=== PATIENT | male | born 1950 | race Caucasian/White ===

== ENCOUNTER 2016-11-12 12:00 | Inpatient (IN) | payer MEDICARE, OTHER ==
[~2016-11-12] VITALS: Ht 182.9 cm; Wt 70.3 kg
[~2016-11-12 12:00] MED LIST: ALBU2.5V13 HHN; ALLO100T PO; CALC500T3 PO; DIAZ10TA PO; HYDR-548 PO; IPRA0.2S9 HHN; MULT-24 PO; SULF1TAB48 PO; TAMS-12 PO
[2016-11-12] MEDS ORDERED: Magnesium 1GM/D5W 100ML PREMIX 200 ML IV ONE ×2 (12:10→12:15)
[2016-11-12] MEDS ORDERED: methylPREDNISolone SOD SUCC 125 MG/2ML VIAL ONE (12:15)
[2016-11-12] MEDS ORDERED: IV SET PRIMARY PUMP SET 1 EA INFUS.SET MC ONE ×2 (12:15→15:55)
--- NOTE | 2016-11-12 12:15 | NUR ---
pt BIB SELF, CC: CHEST PAIN NON RADIATING QUALITY SINCE THIS MORNING WITH COUGH AND SOB. PT AAOX3. SATING AT 92% RA, NOTED COPD HISTORY. VSS. AT FOR EVAL. SAFETY AND COMFORT MEASURES PROVIDED. WILL MONITOR.
[2016-11-12 12:17] LABS: BASOPHILS # (AUTO) 0.1 /CMM (0.0-0.2); BASOPHILS % (AUTO) 1.2 % (0.0-2.0); EOSINOPHILS # (AUTO) 0.1 /CMM (0.0-0.7); EOSINOPHILS % (AUTO) 0.7 % (0.0-6.0); HEMATOCRIT 48 % (39-51); LYMPHOCYTES # (AUTO) 3.1 /CMM (0.8-4.8); LYMPHOCYTES % (AUTO) 27.9 % (20.0-44.0); MEAN CORPUSCULAR HEMOGLOBIN 29 PG (26.0-33.0); MEAN CORPUSCULAR HGB CONC 34 g/dl (31.0-36.0); MEAN CORPUSCULAR VOLUME 87 fL (80-96); MONOCYTES % (AUTO) 9.2 % (2.0-12.0); NEUTROPHILS # (AUTO) 6.9 /CMM (1.8-8.9); PLATELET COUNT (AUTO) 178 /CMM (150-450); RDW COEFFICIENT OF VARIATION 13.4 (11.5-15.0); RED BLOOD CELL COUNT(AUTO) 5.49 MIL/uL (4.5-6.0); WHITE BLOOD COUNT (AUTO) 11.2 K/uL (4.3-11.0)
[2016-11-12] MEDS ORDERED: IPRATROPIUM NEB FS 0.5 MG/2.5 ML AMPUL.NEB ONE (12:22)
[2016-11-12] MEDS ORDERED: ALBUTEROL FS 2.5 MG/3 ML VIAL.NEB ONE (12:22)
--- NOTE | 2016-11-12 12:22 | NUR ---
COAL SHOVELER AT BEDSIDE
[2016-11-12 12:28] LABS: CALCIUM, SERUM 9.2 mg/dL (8.5-10.1); CARBON DIOXIDE 31 mmol/L (21-32); CHLORIDE 104 mmol/L (98-107); GLUCOSE 102 mg/dL (74-106); POTASSIUM 3.9 mmol/L (3.5-5.1); SODIUM SERUM 142 mmol/L (136-145); UREA NITROGEN, BLOOD 27 mg/dL (7-18)
[2016-11-12] MEDS ORDERED: methylPREDNISolone SOD SUCC 125 MG/2ML VIAL IV ONE (12:30)
[2016-11-12] MEDS ORDERED: IPRATROPIUM NEB FS 0.5 MG/2.5 ML AMPUL.NEB NEB ONE (12:30)
[2016-11-12] MEDS ORDERED: ALBUTEROL FS 2.5 MG/3 ML VIAL.NEB NEB ONE (12:30)
[2016-11-12 12:31] LABS: INR 0.99 (0.87-1.13); PROTHROMBIN TIME 10.3 SECS (9.5-12.7)
[2016-11-12 12:35] LABS: TROPONIN I < 0.017 ng/mL (0.00-0.056)
[2016-11-12 12:40] LABS: ALANINE AMINOTRANSFERASE 13 U/L (12-78); ALBUMIN 4.4 g/dL (3.4-5.0); ALKALINE PHOSPHATASE 82 U/L (46-116); ASPARTATE AMINOTRANSFERASE 17 U/L (15-37); B-TYPE NATRIURETIC PEPTIDE 74 PG/ML (0-125); BILIRUBIN,DIRECT 0.1 mg/dL (0.0-0.2); BILIRUBIN,TOTAL 0.7 mg/dL (0.2-1.0); TOTAL PROTEIN, SERUM 7.6 g/dL (6.4-8.2)
--- NOTE | 2016-11-12 12:41 | NUR ---
PAGED LEAD CARPENTER FOR [facility] DR LEAL
[2016-11-12] MEDS ORDERED: TIOT18CA3 IH (12:42)
--- NOTE | 2016-11-12 12:48 | NUR ---
SPOKE WITH NURSING MACHINE BUFFER FOR TELE BED
--- NOTE | 2016-11-12 13:41 | NUR ---
PT ASSIGNED TELE 307-2
--- NOTE | 2016-11-12 13:51 | NUR ---
REPORT GIVEN TO TRI HERNANDEZ FOR TELE ROOM 307-2
--- NOTE | 2016-11-12 14:25 | NUR ---
RN ADMITTING NOTES PATIENT ARRIVED TO UNIT VIA A GURNEY AND REGULATORY ANALYST. PATIENT TELE BOX APPLIED. PATIENT IS SINUS RHYTHM ON THE MONITOR. DR LEAL IS THE ADMITTING MD, WILL FOLLOW UP FOR ORDERS. CHEST PAIN 5/10 TOLERABLE, PER PATIENT. FAMILY MEMBERS AND FRIENDS ARE AT BEDSIDE. IV SITE INTACT AND PATENT. BELONGING LIST CONFIRMED AND SIGNED, PLACED IN THE CHART. WILL CONTINUE TO ASSESS AND MONITOR THROUGH OUT MY SHIFT.
[2016-11-12] MEDS ORDERED: hydrALAZINE HCL 25 MG TABLET PO PRN (14:30)
[2016-11-12] MEDS ORDERED: MAGNESIUM HYDROXIDE 30 ML UDC PO PRN (14:30)
[2016-11-12] MEDS ORDERED: Z GUARD REMEDY 2 OZ OINT TP PRN (14:30)
[2016-11-12] MEDS ORDERED: ONDANSETRON HCL/PF 4 MG/2 ML VIAL IVP PRN (14:30)
[2016-11-12] MEDS ORDERED: MAG HYDROX/AL HYDROX/SIMETH 30 ML UDC PO PRN (14:30)
--- NOTE | 2016-11-12 15:00 | NUR ---
DR LEAL AT BEDSIDE
[2016-11-12] MEDS ORDERED: SECONDARY IV SET 1 EA INFUS.SET MC ONE (15:55)
[2016-11-12] MEDS ORDERED: SET RED CAP 1 EA INFUS.SET MC ONE (15:55)
[2016-11-12 16:00] VITALS: BP 117/74
[2016-11-12] MEDS: IV NS 0.9% 1,000 ML IV PRN (16:02)
[2016-11-12] MEDS: methylPREDNISolone SOD SUCC 125 MG/2ML VIAL IV SCH (16:02)
[2016-11-12] MEDS: LEVOFLOXACIN 500 MG /D5W 100ML 500 MG in PREMIX 1 EA IV SCH (16:54)
[2016-11-12] MEDS: HYDROCODONE/APAP 5/325MG 1 EACH TABLET PO PRN (18:26)
--- NOTE | 2016-11-12 18:30 | NUR ---
PATIENT'S PAIN LEVEL 7/10, NORCO ADMINISTERED. BLOOD PRESSURE 128/68
--- NOTE | 2016-11-12 18:46 | NUR ---
RN CLOSING NOTES PATIENT IS ALERT AND ORIENTED TO NAME, PLACE AND TIME. BED IN LOW POSITION, LOCKED AND 2 SIDE RAILS ARE UP. NORCO GAVE 15 MIN AGO TO ALLEVIATE PAIN. SINUS RHYTHM ON THE MONITOR. NS IV FLUID AT 75 ML/HR CURRENTLY RUNNING. WILL ENDORSE TO BLOCKING MACHINE OPERATOR SECOND NURSE.
--- NOTE | 2016-11-12 19:30 | NUR ---
tele/rn opening notes Received patient in bed awake, alertx3. endorsement given by am rn. monitorning for any report of pain/chest. last norco given [id number], on atb levaquim. iv on right ac. tele monitoring reading at SR.requesting for sleeping pill . will continue to monitor.
[2016-11-12 19:49] VITALS: BP 107/64
[2016-11-12 19:52] VITALS: BP 107/64
--- NOTE | 2016-11-12 20:16 | NUR ---
tele/rn notes pain reported by patient at 6/10 on left upper chest, last norco taken before 1900. will give break through pain of tylenol at this time .
[2016-11-12] MEDS: ACETAMINOPHEN 325 MG TABLET PO PRN (20:23)
--- NOTE | 2016-11-12 20:48 | NUR ---
tele/rn notes patient reported of 5/10 pain lowered pain and stated improvement.
[2016-11-12] MEDS: ENOXAPARIN SODIUM 40 MG/0.4 ML DISP.SYRIN SQ SCH (20:52)
[2016-11-12] MEDS: ZOLPIDEM TARTRATE 5 MG TABLET PO PRN (21:29)
[2016-11-13] VITALS (7 sets, daily range): BP systolic 122–140; BP diastolic 70–87
[2016-11-13] MEDS: HYDROCODONE/APAP 5/325MG 1 EACH TABLET PO PRN ×4 (02:27→18:29)
--- NOTE | 2016-11-13 02:31 | NUR ---
ms/rn notes patient reported pain on mid chest bony prominence, heat pack provided to help alleviate pain and norco 5-325 mg po tab given to patient, tolerate medication. will continue to monitor for pain effectiveness.
--- NOTE | 2016-11-13 03:38 | NUR ---
ms/rn notes patient able to sleep ,no s/s of discomfort.
--- NOTE | 2016-11-13 06:08 | NUR ---
tele/rn closing notes patient able to sleep during the night. cooperative to care. alertx3. stated "feel better" being monitored for any s/s of discomfort. tele reading at sinus rhythm 70's. right iv ac gauge 20 checked for patency. rt made aware for breathing tx ordered. will endorse to am luis angel paige.
--- NOTE | 2016-11-13 07:05 | NUR ---
ENGINE MAINTENANCE MECHANIC NOTES PATIENT IN BED, ALERT AND ORIENTED, STATED PAIN IS AT A TOLERABLE LEVEL AT THIS TIME, NO S/SX OF ACUTE DISTRESS AT THIS TIME, IVF INFUSING, ON TELE WITH SR 60S, NEEDS ATTENDED AND MET, SAFETY MEASURES IN PLACED, CALL LIGHT WITHIN REACH, WILL CONTINUE TO MONITOR.
[2016-11-13 07:10] LABS: EOSINOPHILS % (AUTO) 0.2 % (0.0-6.0); HEMATOCRIT 42 % (39-51); HEMOGLOBIN 14.2 g/dL (13.5-17.5); LYMPHOCYTES # (AUTO) 1.6 /CMM (0.8-4.8); LYMPHOCYTES % (AUTO) 16.2 % (20.0-44.0); MEAN CORPUSCULAR HEMOGLOBIN 29 PG (26.0-33.0); MEAN CORPUSCULAR HGB CONC 34 g/dl (31.0-36.0); MEAN CORPUSCULAR VOLUME 87 fL (80-96); MONOCYTES # (AUTO) 0.8 /CMM (0.1-1.30); MONOCYTES % (AUTO) 7.6 % (2.0-12.0); NEUTROPHILS # (AUTO) 7.6 /CMM (1.8-8.9); PLATELET COUNT (AUTO) 149 /CMM (150-450); RED BLOOD CELL COUNT(AUTO) 4.85 MIL/uL (4.5-6.0); WHITE BLOOD COUNT (AUTO) 10.1 K/uL (4.3-11.0)
[2016-11-13 07:29] LABS: CALCIUM, SERUM 8.7 mg/dL (8.5-10.1); CREATININE 1.1 mg/dL (0.6-1.3); MAGNESIUM 2.2 mg/dL (1.8-2.4); PHOSPHORUS 4.4 mg/dL (2.5-4.9); POTASSIUM 4.8 mmol/L (3.5-5.1)
[2016-11-13] MEDS: IPRATROPIUM NEB FS 0.5 MG/2.5 ML AMPUL.NEB HHN SCH ×4 (07:35→18:54)
[2016-11-13] MEDS: ALBUTEROL FS 2.5 MG/0.5 ML VIAL.NEB HHN PRN (08:11)
[2016-11-13] MEDS: methylPREDNISolone SOD SUCC 125 MG/2ML VIAL IV SCH ×3 (08:35→17:31)
[2016-11-13] MEDS: MULTIVITAMINS,THERAPEUTIC 1 UDTAB TABLET PO SCH (08:35)
[2016-11-13] MEDS: PANTOPRAZOLE 40 MG TABLET.DR PO SCH (08:35)
[2016-11-13] MEDS: TAMSULOSIN 0.4 MG CAP.SR.24H PO SCH (08:35)
[2016-11-13] MEDS ORDERED: TIOTROPIUM BROMIDE 6 CAP/BOX CAP.W.DEV IH SCH (09:00)
--- NOTE | 2016-11-13 10:46 | NUR ---
MARY MICHELLE NOTES INFORMED DR. CRAWFORD PATIENT IS STILL COMPLAINING OF THROBBING PAIN 11/01 IN HIS MIDCHEST, NORCO WAS GIVEN AT 0841, DR. CRAWFORD GAVE AN ORDER FOR AN MD CONSULT WITH DR. DANIELS FOR PAIN MANAGEMENT. ORDER NOTED AND CARRIED OUT. Addendum: 11/13/16 at 1522 by VIDHI POTTER RN SORAYA MAYA MS
[2016-11-13] MEDS: LEVOFLOXACIN 500 MG /D5W 100ML 500 MG in PREMIX 1 EA IV SCH (15:07)
--- NOTE | 2016-11-13 15:21 | NUR ---
HOPPER FEEDER NOTES PATIENT REFUSED DVT PUMP, RE-EDUCATED, STILL REFUSED.
--- NOTE | 2016-11-13 18:33 | NUR ---
OIL OPERATOR NOTES PATIENT IN BED, ALERT AND ORIENTED, RECEIVED NORCO FOR MID CHEST PAIN, RECEIVED ALL DUE MEDICATIONS, ALL NEEDS ATTENDED AND MET, SAFETY MEASURES OBSERVED, PIV ON LEFT HAND PATENT AND INTACT WITH IVF ONGOING AT THIS TIME, CALL LIGHT WITHIN REACH, WILL ENDORSE TO SENIOR SUPPLY CHAIN ANALYST FOR SUDHEER.
--- NOTE | 2016-11-13 19:30 | NUR ---
TELE/RN OPENING NOTES PT AWAKE, FAMILY AT BEDSIDE. CURRENTLY RECEIVING BREATHING TX. A/OX3. DENIES PAIN AND SOB AT THIS TIME. NO S/S OF DISTRESS NOTED. ON TELE MONITOR READING SINUS RHYTHM WITH HEART RATE AT 75. IV TO LEFT HAND RUNNING IVF ORDERED. BED IN LOW/LOCKED POSITION WITH CALL LIGHT IN REACH. BED RAILS UPX2. WILL CONTINUE TO MONITOR
[2016-11-13] MEDS: ENOXAPARIN SODIUM 40 MG/0.4 ML DISP.SYRIN SQ SCH (20:47)
[2016-11-13] MEDS: IV NS 0.9% 1,000 ML IV PRN (21:56)
[2016-11-13] MEDS: ZOLPIDEM TARTRATE 5 MG TABLET PO PRN (21:56)
[2016-11-14] VITALS (7 sets, daily range): BP systolic 126–137; BP diastolic 72–83
[2016-11-14] MEDS: IPRATROPIUM NEB FS 0.5 MG/2.5 ML AMPUL.NEB HHN SCH ×4 (00:47→19:35)
[2016-11-14] MEDS: HYDROCODONE/APAP 5/325MG 1 EACH TABLET PO PRN ×3 (01:12→18:16)
--- NOTE | 2016-11-14 01:12 | NUR ---
TELE/RN NOTES PT COMPLAINING OF THROBBING CHEST PAIN 12/02. ADMINISTERED PRN NORCO 5-325 AND PROVIDED HEATING PAD. WILL CONTINUE TO MONITOR
--- NOTE | 2016-11-14 06:43 | NUR ---
TELE/RN CLOSING NOTES PT AWAKE, ON 2LPM O2 VIA NC. DENIES SOB OR PAIN AT THIS TIME. BREATHING EVEN AND UNLABORED. ON TELE MONITOR, SINUS RHYTHM WITH HEART RATE AT 63. IV TO LEFT HAND RUNNING NS AT 75ML/HR ORDERED. PT SLEPT INTERMITTENTLY DURING THE NIGHT. HAS PAIN MANAGEMENT CONSULT WITH DR. DANIELS. BED IN LOW/LOCKED POSITION, CALL LIGHT IN REACH. ALL NEEDS MET AND ATTENDED. MADE PT COMFORTABLE THROUGHOUT SHIFT. WILL ENDORSE TO AM SHIFT SUDHEER.
--- NOTE | 2016-11-14 07:05 | NUR ---
FORGING PRESS SETTER UP NOTE: RECEIVED PATIENT WHILE RESTING IN BED, A/OX 4. BREATHING EVEN AND UNLABORED ON 2L O2 VIA NC. NO SOB, NO DISTRESS/DISCOMFORT AT THE MOMENT. PATIENT COMFORTABLE, ALL NEEDS ATTENDED TO, SAFETY MEASURES IN PLACE, WILL CONTINUE TO MONITOR.
[2016-11-14] MEDS: MULTIVITAMINS,THERAPEUTIC 1 UDTAB TABLET PO SCH (08:30)
[2016-11-14] MEDS: TAMSULOSIN 0.4 MG CAP.SR.24H PO SCH (08:30)
[2016-11-14] MEDS: PANTOPRAZOLE 40 MG TABLET.DR PO SCH (08:31)
[2016-11-14] MEDS: methylPREDNISolone SOD SUCC 125 MG/2ML VIAL IV SCH ×3 (08:33→16:15)
--- NOTE | 2016-11-14 08:35 | NUR ---
ASSISTANT BASEBALL COACH NOTE: PATIENT C/O CHEST PAIN, 12/02. PATIENT GIVEN NORCO ORALLY. PATIENT ON OXYGEN, NO SOB, WILL CONTINUE TO MONITOR.
[2016-11-14] MEDS ORDERED: LIDOCAINE 2% JEL 5 ML TUBE MC ONE (09:30)
--- NOTE | 2016-11-14 10:30 | NUR ---
MS RN NOTE: PATIENT CLEARED FROM TELE MONITORING PER DR. CRAWFORD. TELE MONITOR REMOVED AND RETURNED TO STATION. WILL CONTINUE TO MONITOR PATIENT.
--- NOTE | 2016-11-14 12:00 | NUR ---
MS RN NOTE: PATIENT RESTING IN BED, NO SIGNIFICANT CHANGES IN CONDITION, WILL CONTINUE TO MONITOR.
[2016-11-14] MEDS: IV NS 0.9% 1,000 ML IV PRN (12:30)
[2016-11-14] MEDS: LEVOFLOXACIN 500 MG /D5W 100ML 500 MG in PREMIX 1 EA IV SCH (14:06)
[2016-11-14] MEDS: ACETAMINOPHEN 325 MG TABLET PO PRN (16:14)
--- NOTE | 2016-11-14 16:14 | NUR ---
MS RN NOTE: PATIENT C/O MILD HEADACHE, REQUESTING TYLENOL. MEDICATION ADMINISTERED ORALLY. WILL CONTINUE TO MONITOR.
--- NOTE | 2016-11-14 18:20 | NUR ---
MS RN NOTE: PATIENT C/O 6/10 PAIN ON CHEST, REQUESTING NORCO. MEDICATION ADMINISTERED ORALLY. PATIENT A/OX 4, BREATHING EVEN AND UNLABORED. NO SOB. ALL OTHER NEEDS ATTENDED TO, SAFETY MEASURES IN PLACE, WILL ENDORSE TO SALES PRODUCER FOR SUDHEER.
--- NOTE | 2016-11-14 19:30 | NUR ---
MS NEON SIGN ERECTOR INITIAL NOTES RECEIVED REPORT FROM AM NURSE VIVIENNE, CHECKED PT HE'S AWAKE AND ALERT FAROESE AND ARMENIAN SPEAKING HAVING BREATHING TREATMENT AT THIS TIME. DENIES ANY CHEST OR ANY DISCOMFORT. IVF STILL INFUSING ON HIS LEFT HAND PATENT AND INTACT. NO REDNESS NOTED. TOLD HIM ABOUT WHAT MEDICATION HE CAN HAVE TONIGHT AND PT AWARE. ENCOURAGE HIM TO USE THE CALL LIGHT SYSTEM IF HE NEEDS SOME HELPED OR ASSISTANCE. KEPT HIM COMFORTABLE AT ALL TIMES. PLACE CALL LIGHT AT REACH. WILL CONTINUE TO MONITOR.
[2016-11-14] MEDS: ALBUTEROL FS 2.5 MG/0.5 ML VIAL.NEB HHN PRN (19:35)
[2016-11-14] MEDS: ENOXAPARIN SODIUM 40 MG/0.4 ML DISP.SYRIN SQ SCH (21:16)
--- NOTE | 2016-11-15 | NUR ---
FELT FINISHER/NOTES PT SLEEPING COMFORTABLY IN BED WITHOUT ANY ACUTE DISTRESS NOTED. IVF STILL INFUSING ON HIS LEFT HAND, NO REDNESS NOTED. KEPT HIM WARM AND COMFORTABLE AT ALL TIMES PLACE CALL LIGHT AT REACH. WILL CONTINUE TO MONITOR.
[2016-11-15] MEDS: ALBUTEROL FS 2.5 MG/0.5 ML VIAL.NEB HHN PRN ×3 (01:25→14:10)
[2016-11-15] MEDS: IPRATROPIUM NEB FS 0.5 MG/2.5 ML AMPUL.NEB HHN SCH ×4 (01:25→19:32)
[2016-11-15] MEDS: IV NS 0.9% 1,000 ML IV PRN (05:20)
--- NOTE | 2016-11-15 06:33 | NUR ---
MS ORACLE BUSINESS INTELLIGENCE DEVELOPER CLOSING NOTES PT REMAINS RESTING WITH EYES CLOSED BUT AROUSES TO TOUCH . DENIES ANY PAIN OR ANY DISCOMFORT. STABLE MERLENE THE NIGHT AND SLEPT WELL. ALL DUE MEDS GIVEN AND ALL NEEDS MET. KEPT HIM WARM AND COMFORTABLE AT ALL TIMES. PLACE CALL LIGHT AT REACH. ENDORSE TO AM NURSE FOR CONTINUITY OF CARE.
[2016-11-15 07:03] LABS: BASOPHILS % (AUTO) 0.1 % (0.0-2.0); HEMATOCRIT 42 % (39-51); LYMPHOCYTES # (AUTO) 1.4 /CMM (0.8-4.8); LYMPHOCYTES % (AUTO) 15.3 % (20.0-44.0); MEAN CORPUSCULAR HEMOGLOBIN 30 PG (26.0-33.0); MEAN CORPUSCULAR HGB CONC 34 g/dl (31.0-36.0); MEAN CORPUSCULAR VOLUME 88 fL (80-96); MONOCYTES # (AUTO) 0.8 /CMM (0.1-1.30); MONOCYTES % (AUTO) 8.2 % (2.0-12.0); NEUTROPHILS # (AUTO) 7.3 /CMM (1.8-8.9); NEUTROPHILS % (AUTO) 76.4 % (43.0-81.0); PLATELET COUNT (AUTO) 131 /CMM (150-450); RDW COEFFICIENT OF VARIATION 14.1 (11.5-15.0); RED BLOOD CELL COUNT(AUTO) 4.74 MIL/uL (4.5-6.0); WHITE BLOOD COUNT (AUTO) 9.5 K/uL (4.3-11.0)
[2016-11-15 07:23] LABS: CALCIUM, SERUM 8.8 mg/dL (8.5-10.1); POTASSIUM 4.4 mmol/L (3.5-5.1)
[2016-11-15 07:27] LABS: PHOSPHORUS 3.4 mg/dL (2.5-4.9)
[2016-11-15 08:00] VITALS: BP 143/82
--- NOTE | 2016-11-15 08:00 | NUR ---
MS RN AM NOTES PT AWAKE, ON 2LPM O2 VIA NC. DENIES SOB OR PAIN AT THIS TIME. BREATHING EVEN AND UNLABORED. ON TELE MONITOR, SINUS RHYTHM WITH HEART RATE AT 60. IV TO LEFT HAND RUNNING NS AT 75ML/HR ORDERED. WITH C/O LEFT CHEST PAIN.NORCO 5/325 TAB PO GIVEN FOR PAIN MANAGEMENT.BED IN LOW/LOCKED POSITION, CALL LIGHT IN REACH.NEEDS MET AND ATTENDED.
[2016-11-15 08:11] VITALS: BP 143/82
[2016-11-15] MEDS: HYDROCODONE/APAP 5/325MG 1 EACH TABLET PO PRN (09:23)
[2016-11-15] MEDS: methylPREDNISolone SOD SUCC 125 MG/2ML VIAL IV SCH ×3 (09:24→17:56)
[2016-11-15] MEDS: PANTOPRAZOLE 40 MG TABLET.DR PO SCH (09:24)
[2016-11-15] MEDS: MULTIVITAMINS,THERAPEUTIC 1 UDTAB TABLET PO SCH (09:24)
[2016-11-15] MEDS: TAMSULOSIN 0.4 MG CAP.SR.24H PO SCH (09:24)
[2016-11-15 16:00] VITALS: BP 151/82
[2016-11-15 16:53] VITALS: BP 151/82
[2016-11-15] MEDS: LEVOFLOXACIN (500MG) 500 MG TABLET PO SCH (17:49)
--- NOTE | 2016-11-15 18:38 | NUR ---
PT RESTING IN BED DENYING ANY PAIN OR DISTRESS.OBTAINED ALL MEDICAL RECORDS DOCUMENTS FROM [facility] REGARDING PT'S THORACENTESIS PROCEDURE AND PLACED IN THE CHART.
--- NOTE | 2016-11-15 19:25 | NUR ---
MS STEPHANIE INITIAL NOTES SEEN PT IN BED AWAKE AND ALERT WATCHING TV WHILE TALKING TO SOMEBODY ON HIS CELLPHONE. DENIES ANY PAIN OR ANY DISCOMFORT. KEPT HIM COMFORTABLE AT ALL TIMES. WILL CONTINUE TO MONITOR. PLACE CALL LIGHT AT REACH.
[2016-11-15] MEDS: ALBUTEROL FS 2.5 MG/0.5 ML VIAL.NEB HHN SCH (19:32)
[2016-11-15 20:00] VITALS: BP 128/84
[2016-11-15] MEDS: ENOXAPARIN SODIUM 40 MG/0.4 ML DISP.SYRIN SQ SCH (21:31)
[2016-11-15] MEDS: ZOLPIDEM TARTRATE 5 MG TABLET PO PRN (22:30)
--- NOTE | 2016-11-15 22:31 | NUR ---
SUPERVISOR ROSE GRADING NOTES AMBIEN GIVEN PER PT REQUESTED. POSSIBLE SIDE EFFECT PT AWARE AND UNDERSTOOD WELL. KEPT HIM WARM AND COMFORTABLE AT ALL TIMES. WILL CONTINUE TO MONITOR. PLACE CALL LIGHT AT REACH.
--- NOTE | 2016-11-16 | NUR ---
SENIOR SQL DATABASE DEVELOPER/NOTES PT SLEEPING COMFORTABLY IN BED AFTER SLEEP MEDICATION TAKEN. BREATHING EVEN AND UN-LABORED, NOT IN ANY ACUTE DISTRESS NOTED. KEPT HIM WARM AND COMFORTABLE AT ALL TIMES. WILL CONTINUE TO MONITOR.
[2016-11-16] MEDS: ALBUTEROL FS 2.5 MG/0.5 ML VIAL.NEB HHN SCH ×4 (01:20→20:00)
[2016-11-16] MEDS: IPRATROPIUM NEB FS 0.5 MG/2.5 ML AMPUL.NEB HHN SCH ×4 (01:20→20:00)
[2016-11-16 06:43] LABS: BASOPHILS % (AUTO) 0.1 % (0.0-2.0); HEMATOCRIT 42 % (39-51); LYMPHOCYTES # (AUTO) 1.3 /CMM (0.8-4.8); LYMPHOCYTES % (AUTO) 14.3 % (20.0-44.0); MEAN CORPUSCULAR HEMOGLOBIN 30 PG (26.0-33.0); MEAN CORPUSCULAR HGB CONC 34 g/dl (31.0-36.0); MEAN CORPUSCULAR VOLUME 88 fL (80-96); MONOCYTES # (AUTO) 0.9 /CMM (0.1-1.30); NEUTROPHILS # (AUTO) 6.7 /CMM (1.8-8.9); NEUTROPHILS % (AUTO) 75.6 % (43.0-81.0); PLATELET COUNT (AUTO) 129 /CMM (150-450); RDW COEFFICIENT OF VARIATION 13.9 (11.5-15.0); RED BLOOD CELL COUNT(AUTO) 4.75 MIL/uL (4.5-6.0); WHITE BLOOD COUNT (AUTO) 8.8 K/uL (4.3-11.0)
[2016-11-16 06:55] LABS: CALCIUM, SERUM 8.8 mg/dL (8.5-10.1); PHOSPHORUS 3.6 mg/dL (2.5-4.9); POTASSIUM 4.2 mmol/L (3.5-5.1)
--- NOTE | 2016-11-16 07:02 | NUR ---
TECHNICAL MAINTENANCE TECHNICIAN/CLOSING NOTES PT AWAKE AND ALERT DENIES ANY PAIN OR ANY DISCOMFORT. STABLE MERLENE THE NIGHT AND SLEPT WELL, ALL NEEDS MET AND DUE MEDS GIVEN. KEPT HIM COMFORTABLE AT ALL TIMES. ENDORSE TO AM NURSE FOR CONTINUITY OF CARE. PLACE CALL LIGHT AT REACH.
--- NOTE | 2016-11-16 07:56 | NUR ---
MS RN OPENING NOTE PATIENT IS ALERT AND ORIENTED x4. STATES 5/10 PAIN ON LEFT ABDOMINAL SIDE, MEDICATION GIVEN, WILL REASSESS PAIN. NO SOB OR DISTRESS NOTED. CALL LIGHT WITHIN REACH. SAFETY MEASURES IMPLEMENTED. ABLE TO COMMUNICATE NEEDS. BRP. IV INTACT AND PATENT NO REDNESS OR SWELLING NOTED. WILL CONTINUE TO MONITOR
[2016-11-16 08:00] VITALS: BP 134/81
[2016-11-16] MEDS: MULTIVITAMINS,THERAPEUTIC 1 UDTAB TABLET PO SCH (08:18)
[2016-11-16] MEDS: methylPREDNISolone SOD SUCC 125 MG/2ML VIAL IV SCH ×3 (08:18→16:43)
[2016-11-16] MEDS: PANTOPRAZOLE 40 MG TABLET.DR PO SCH (08:18)
[2016-11-16] MEDS: HYDROCODONE/APAP 5/325MG 1 EACH TABLET PO PRN ×3 (08:18→20:34)
[2016-11-16] MEDS: TAMSULOSIN 0.4 MG CAP.SR.24H PO SCH (08:18)
[2016-11-16] MEDS: LEVOFLOXACIN (500MG) 500 MG TABLET PO SCH (15:16)
--- NOTE | 2016-11-16 18:44 | NUR ---
MS RN CLOSING NOTE PATIENT IS ALERT AND ORIENTED x4. NO PAIN AT THIS TIME. NO SOB OR DISTRESS NOTED. ALL DUE MEDICATIONS GIVEN. CALL LIGHT WITHIN REACH AT ALL TIMES. SAFETY MEASURES IMPLEMENTED. ABLE TO COMMUNICATE NEEDS. POSSIBLE DISCHARGE IN THE MORNING. WILL ENDORSE TO SLOT KEY PERSON NURSE
--- NOTE | 2016-11-16 19:15 | NUR ---
RN NOTES RECEIVED PT AWAKE, HOB ELEVATED, NO SOB, NOT IN DISTRESS, WITH O2 INHALATION VIA NC AND TOLERATED WELL. PT ALERT AND ORIENTED X3, VERBALIZING TOLERABLE PAIN ON HIS LEFT LATERAL BACK. IV ACCESS ON LEFT HAND INTACT, NO SIGNS OF INFILTRATE NOTED. KEPT COMFORTABLE AND ATTENDED. KEPT BED IN THE LOWEST POSITION, LOCKED, SIDE RAILS UP X2 WITH CALL LIGHT WITH IN REACH. WILL CONTINUE TO MONITOR PT.
[2016-11-16 20:00] VITALS: BP 131/72
[2016-11-16] MEDS: ENOXAPARIN SODIUM 40 MG/0.4 ML DISP.SYRIN SQ SCH (20:33)
--- NOTE | 2016-11-16 20:34 | NUR ---
RN NOTES PT COMPLAINS OF 6/10 PAIN ON HIS LEFT LATERAL BACK, NORCO 5/325 MG TAB GIVEN PO. WILL CONTINUE TO MONITOR PT.
[2016-11-16 22:00] VITALS: BP 131/72
[2016-11-16] MEDS: ZOLPIDEM TARTRATE 5 MG TABLET PO PRN (22:49)
--- NOTE | 2016-11-16 22:49 | NUR ---
RN NOTES PT HAS DIFFICULTY SLEEPING, REQUESTING FOR SLEEPING PILL. AMBIEN 5 MG TAB GIVEN PO. WILL CONTINUE TO MONITOR PT.
[2016-11-17] MEDS: IPRATROPIUM NEB FS 0.5 MG/2.5 ML AMPUL.NEB HHN SCH ×4 (01:16→19:27)
[2016-11-17] MEDS: ALBUTEROL FS 2.5 MG/0.5 ML VIAL.NEB HHN SCH ×4 (01:16→19:27)
--- NOTE | 2016-11-17 01:16 | NUR ---
RT PT REFUSED MEDS. PT WAS SLEEPING AT WANT TO CONTINUE RESTING. NO SOB OR RESP DISTRESS NOTED.
--- NOTE | 2016-11-17 07:15 | NUR ---
RN NOTES PT AWAKE , HOB, ELEVATED, NO SOB, NOT IN DISTRESS, ON O2 INHALATION AT 2LPM VIA NC TOLERATED WELL. VITAL SIGNS STABLE, AFEBRILE. NO COMPLAIN OF CHEST PAIN, EDIN EPISODE OF NAUSEA AND VOMITING WITH IN THE SHIFT. KEPT PAIN AT TOLERABLE LEVEL.ALL NEEDS ATTENDED. ENDORSED TO MORNING RN FOR CONTINUITY OF CARE.
--- NOTE | 2016-11-17 07:43 | NUR ---
MS RN OPENING NOTE PATIENT IS ALERT AND ORIENTED x4. PATIENT STATES PAIN IN LEFT LATERAL BACK, PAIN MEDICATION GIVEN. NO SOB OR DISTRESS NOTED. CALL LIGHT WITHIN REACH. SAFETY MEASURES IMPLEMENTED. IV INTACT AND PATENT NO REDNESS OR SWELLING. ABLE TO COMMUNICATE NEEDS. WILL CONTINUE TO MONITOR
[2016-11-17 08:00] VITALS: BP 150/93
[2016-11-17] MEDS: HYDROCODONE/APAP 5/325MG 1 EACH TABLET PO PRN ×3 (08:01→21:13)
[2016-11-17] MEDS: TAMSULOSIN 0.4 MG CAP.SR.24H PO SCH (08:01)
[2016-11-17] MEDS: MULTIVITAMINS,THERAPEUTIC 1 UDTAB TABLET PO SCH (08:01)
[2016-11-17] MEDS: PANTOPRAZOLE 40 MG TABLET.DR PO SCH (08:01)
[2016-11-17] MEDS: methylPREDNISolone SOD SUCC 125 MG/2ML VIAL IV SCH ×3 (08:01→16:19)
[2016-11-17] MEDS: LEVOFLOXACIN (500MG) 500 MG TABLET PO SCH (15:19)
[2016-11-17 16:00] VITALS: BP 114/78
--- NOTE | 2016-11-17 18:39 | NUR ---
MS RN CLOSING NOTE PATIENT IS ALERT AND ORIENTED X4. NO PAIN AT THIS TIME. NO SOB OR DISTRESS NOTED. ALL DUE MEDICATIONS GIVEN ORDERED. CALL LIGHT WITHIN REACH AT ALL TIMES. SAFETY MEASURES IMPLEMENTED. IV INTACT AND PATENT NO REDNESS OR SWELLING NOTED. ABLE TO COMMUNICATE NEEDS. WILL ENDORSE TO MANAGER LEARNING NURSE
--- NOTE | 2016-11-17 19:30 | NUR ---
MS RN OPENING NOTES: PATIENT IN BED, AOX4, ON O2 AT 2 LPM VIA NC, BREATHING EVEN AND UNLABORED, HOWEVER, SOME EXPIRATORY WHEEZING NOTED UPON AUSCULTATION. PATIENT HAS NO SOB, NOTED NO USE OF ACCESSORY MUSCLES WHILE BREATHING, DENIES DIFFICULTY BREATHING AT THIS TIME. PIV OVER LFA G 22 INTACT AND PATENT TO FLUSH. COMPLAINS OF LEFT SIDED CHEST PAIN, SCALED AT 6/10, DESCRIBED "PRESSING" AND WAS ATTRIBUTED TO HIS RECENT ACTIVITY OF FIXING HIS BED. VS TAKEN AT 129/77, HR: 898, O2 SAT: 98%. PROVIDED FOR COMFORT AND SAFETY. WILL CONT TO MONITOR.
[2016-11-17 20:00] VITALS: BP 119/71
--- NOTE | 2016-11-17 20:02 | NUR ---
RN NOTES: PATIENT PLACED TEMPORARILY ON TELE MONITOR: SINUS RHYTHM AT RATE OF 90S. PATIENT APPEARS CALM AND IN NO DISTRESS, STATES THAT CHEST PAIN IS SLIGHTLY BETTER BUT STILL PRESENT. NO DIAPHORESIS, SOB, CHANGE IN LOC, PALLOR/ FLUSHING NOTED AT THIS TIME. WILL CONT TO MONITOR.
[2016-11-17] MEDS ORDERED: NITROGLYCERIN 0.4 MG/TAB BOTTLE SL PRN (20:30)
--- NOTE | 2016-11-17 20:37 | NUR ---
RN NOTES: MADE AMRIT OSBORNE AWARE OF PATIENT'S CHEST PAIN. ORDERS MADE FOR STAT TROPONIN, EKG AND PRN NTG 0.4 MG PO. ORDERS NOTED AND CARRIED OUT. WILL CONT TO MONITOR.
--- NOTE | 2016-11-17 21:15 | NUR ---
RN NOTES: PATIENT COMPLAINED OF 6/10 PAIN OVER LEFT SIDE OF CHEST. ADMINISTERED NORCO 5-325 MG PO. WILL CONT TO MONITOR.
[2016-11-17] MEDS: ENOXAPARIN SODIUM 40 MG/0.4 ML DISP.SYRIN SQ SCH (21:17)
[2016-11-17 23:10] VITALS: BP 157/94
--- NOTE | 2016-11-17 23:12 | NUR ---
RN NOTES: PATIENT COMPLAINED OF LEFT SIDED CHEST PAIN AT 6/10. PATIENT APPEARS CALM AND IN NO DISTRESS. VS CHECKED. WILL ADMINISTER NTG 1 TAB SL, AND WILL CONT TO MONITOR.
[2016-11-18] MEDS: ALBUTEROL FS 2.5 MG/0.5 ML VIAL.NEB HHN SCH ×3 (01:08→13:30)
[2016-11-18] MEDS: IPRATROPIUM NEB FS 0.5 MG/2.5 ML AMPUL.NEB HHN SCH ×3 (01:08→13:30)
[2016-11-18 05:30] VITALS: BP 133/80
--- NOTE | 2016-11-18 06:00 | NUR ---
RN NOTES: PATIENT REFUSED TO HAVE MORNING CARE DONE OF NOW, SAYING HE WANTS TO SLEEP.
--- NOTE | 2016-11-18 06:39 | NUR ---
MS RN CLOSING NOTES: PATIENT IN BED, AO4, ON O2 AT 2 LPM VIA NC, BREATHING EVEN AND UNLABORED. PATIENT STILL COMPLAINING OF LEFT SIDED CHEST PAIN, BUT NOT ABLE TO ACCURATELY SCALE IT AT THIS TIME, SAYING "IT HAS GONE DOWN." PATIENT NOTED TO HAVE PERIODS OF INTERMITTENT SLEEP THROUGH NIGHT. FREQUENTLY ASSESSED FOR PAIN AND ADMINISTERED PRN PAIN MEDICATIONS. PROVIDED FOR COMFORT AND SAFETY. WILL ENDORSE TO AM RN FOR SUDHEER.
[2016-11-18 06:54] LABS: BASOPHILS % (AUTO) 0.2 % (0.0-2.0); HEMATOCRIT 42 % (39-51); LYMPHOCYTES % (AUTO) 12.2 % (20.0-44.0); MEAN CORPUSCULAR HEMOGLOBIN 30 PG (26.0-33.0); MEAN CORPUSCULAR HGB CONC 34 g/dl (31.0-36.0); MEAN CORPUSCULAR VOLUME 88 fL (80-96); MONOCYTES # (AUTO) 0.6 /CMM (0.1-1.30); MONOCYTES % (AUTO) 7.5 % (2.0-12.0); NEUTROPHILS # (AUTO) 6.6 /CMM (1.8-8.9); NEUTROPHILS % (AUTO) 80.1 % (43.0-81.0); PLATELET COUNT (AUTO) 115 /CMM (150-450); RDW COEFFICIENT OF VARIATION 13.9 (11.5-15.0); RED BLOOD CELL COUNT(AUTO) 4.73 MIL/uL (4.5-6.0); WHITE BLOOD COUNT (AUTO) 8.3 K/uL (4.3-11.0)
[2016-11-18 06:56] LABS: CALCIUM, SERUM 8.6 mg/dL (8.5-10.1); MAGNESIUM 2.2 mg/dL (1.8-2.4); PHOSPHORUS 3.9 mg/dL (2.5-4.9); POTASSIUM 4.4 mmol/L (3.5-5.1)
[2016-11-18] MEDS: PANTOPRAZOLE 40 MG TABLET.DR PO SCH (07:09)
--- NOTE | 2016-11-18 07:30 | NUR ---
pt. refused dvt pumps,states he has had them in the past and they caused problems with his circulation.
[2016-11-18 08:00] VITALS: BP 151/81
[2016-11-18] MEDS: HYDROCODONE/APAP 5/325MG 1 EACH TABLET PO PRN (08:00)
[2016-11-18] MEDS ORDERED: PANT40TA2 PO (08:32)
[2016-11-18] MEDS ORDERED: PRED20TA GT (08:32)
[2016-11-18] MEDS ORDERED: LEVO500T15 PO (08:32)
[2016-11-18] MEDS ORDERED: PRED10TA PO (08:32)
[2016-11-18] MEDS ORDERED: Hydralazine Hcl PO (08:32)
[2016-11-18] MEDS ORDERED: PRED20TA PO (08:32)
[2016-11-18] MEDS ORDERED: PRED50TA PO (08:32)
[2016-11-18] MEDS: MULTIVITAMINS,THERAPEUTIC 1 UDTAB TABLET PO SCH (09:41)
[2016-11-18] MEDS: TAMSULOSIN 0.4 MG CAP.SR.24H PO SCH (09:41)
[2016-11-18] MEDS: methylPREDNISolone SOD SUCC 125 MG/2ML VIAL IV SCH ×2 (09:41→13:54)
--- NOTE | 2016-11-18 10:30 | NUR ---
pt. up in bathroom,shaving without o2 although he becomes sob at times.
--- NOTE | 2016-11-18 11:30 | NUR ---
o2 tank delivered to . to take home.
--- NOTE | 2016-11-18 14:30 | NUR ---
no change in status.
[2016-11-18] MEDS: LEVOFLOXACIN (500MG) 500 MG TABLET PO SCH (14:51)
--- NOTE | 2016-11-18 15:05 | NUR ---
pt.has friend here to pick him up. help lock out.all papers given to pt. rxs on dc sheet.explained thoroughly to pt.belonging sheet signed as well.taken to lobby via w/c accompanied by scaffolding helper and friend.
--- NOTE | 2016-11-18 15:30 | NUR ---
pt,s pharm. calling and asking questions about pt,s meds.reviewed dc list with pharmacist.
== END 2016-11-18 15:05 | disposition home or self-care (01) | DRG 189 ==
LOC: ER 12:02 → TELE 12:30 → MED 11-14 10:15
PROVIDERS: ADMIT Internal Medicine; ATTEND Internal Medicine
DX: J96.21 Acute and chronic respiratory failure with hypoxia (principal); J44.0 Chronic obstructive pulmonary disease with (acute) lower respiratory infection; E44.0 Moderate protein-calorie malnutrition; J90 Pleural effusion, not elsewhere classified; R64 Cachexia; J44.1 Chronic obstructive pulmonary disease with (acute) exacerbation; R07.89 Other chest pain; Z91.19 Patient's noncompliance with other medical treatment and regimen; Z99.81 Dependence on supplemental oxygen; F17.200 Nicotine dependence, unspecified, uncomplicated; E78.5 Hyperlipidemia, unspecified; I10 Essential (primary) hypertension; I25.10 Atherosclerotic heart disease of native coronary artery without angina pectoris; K21.9 Gastro-esophageal reflux disease without esophagitis; Z85.46 Personal history of malignant neoplasm of prostate; M06.9 Rheumatoid arthritis, unspecified; J20.9 Acute bronchitis, unspecified; G62.9 Polyneuropathy, unspecified; Z86.19 Personal history of other infectious and parasitic diseases; Z68.21 Body mass index [BMI] 21.0-21.9, adult; R79.89 Other specified abnormal findings of blood chemistry; Z87.898 Personal history of other specified conditions; Z71.6 Tobacco abuse counseling; R35.0 Frequency of micturition; M10.9 Gout, unspecified
CPT/HCPCS: 36415; 70220-TC; 71010-TC; 80048-TC; 80061-TC; 80076-TC; 83735-TC; 83880; 84100-TC; 84484-TC; 85025-TC; 85730-TC; 87081-TC; 93307-TC; 94799-TC; 97001-TC; A4216; A4606; J1650; J1956; J2930; J3475; J7030; Z7610

== ENCOUNTER 2018-02-11 12:11 | Emergency (ER) | payer MEDICARE, OTHER ==
[~2018-02-11] VITALS: Ht 170.2 cm; Wt 59.0 kg
[~2018-02-11 12:11] MED LIST changes: -ALLO100T PO; -CALC500T3 PO; -DIAZ10TA PO; +Hydralazine Hcl PO; +LEVO500T2 PO; +PANT40TA2 PO; +PRED10TA PO; +PRED20TA GT; +PRED20TA PO; +PRED50TA PO; -SULF1TAB48 PO; +TIOT18CA3 IH
[2018-02-11] MEDS ORDERED: ASPIRIN EC 81 MG TABLET.DR PO ONE (12:44)
[2018-02-11] MEDS ORDERED: MORPHINE SULFATE INJ 4 MG/ML DISP.SYRIN ONE (12:44)
[2018-02-11 12:46] LABS: BASOPHILS # (AUTO) 0.1 /CMM (0.0-0.2); BASOPHILS % (AUTO) 1.2 % (0.0-2.0); EOSINOPHILS % (AUTO) 0.8 % (0.0-6.0); HEMATOCRIT 43 % (39-51); HEMOGLOBIN 14.1 g/dL (13.5-17.5); LYMPHOCYTES % (AUTO) 22.9 % (20.0-44.0); MEAN CORPUSCULAR HEMOGLOBIN 28 PG (26.0-33.0); MEAN CORPUSCULAR HGB CONC 33 g/dl (31.0-36.0); MEAN CORPUSCULAR VOLUME 84 fL (80-96); MONOCYTES # (AUTO) 0.8 /CMM (0.1-1.30); MONOCYTES % (AUTO) 8.8 % (2.0-12.0); NEUTROPHILS # (AUTO) 5.9 /CMM (1.8-8.9); NEUTROPHILS % (AUTO) 66.3 % (43.0-81.0); PLATELET COUNT (AUTO) 135 /CMM (150-450); RDW COEFFICIENT OF VARIATION 13.8 (11.5-15.0); RED BLOOD CELL COUNT(AUTO) 5.06 MIL/uL (4.5-6.0); WHITE BLOOD COUNT (AUTO) 8.9 K/uL (4.3-11.0)
[2018-02-11 12:56] LABS: CALCIUM, SERUM 9.5 mg/dL (8.5-10.1); CARBON DIOXIDE 31 mmol/L (21-32); CHLORIDE 106 mmol/L (98-107); GLUCOSE 98 mg/dL (74-106); POTASSIUM 4.9 mmol/L (3.5-5.1); SODIUM SERUM 141 mmol/L (136-145); UREA NITROGEN, BLOOD 19 mg/dL (7-18)
[2018-02-11] MEDS ORDERED: MORPHINE SULFATE INJ 2 MG/ML DISP.SYRIN IV ONE (13:00)
[2018-02-11] MEDS ORDERED: ASPIRIN 81 MG TAB.CHEW PO ONE (13:00)
[2018-02-11] MEDS ORDERED: IV NS 0.9% 500 ML BAG IV ONE (13:00)
[2018-02-11 13:01] LABS: ALANINE AMINOTRANSFERASE 17 U/L (12-78); ALBUMIN 3.9 g/dL (3.4-5.0); ALKALINE PHOSPHATASE 111 U/L (46-116); ASPARTATE AMINOTRANSFERASE 17 U/L (15-37); BILIRUBIN,DIRECT 0.1 mg/dL (0.0-0.2); BILIRUBIN,TOTAL 0.6 mg/dL (0.2-1.0); TOTAL PROTEIN, SERUM 7.5 g/dL (6.4-8.2)
[2018-02-11 13:03] LABS: TROPONIN I < 0.017 ng/mL (0.00-0.056)
[2018-02-11] MEDS ORDERED: ALBUTEROL FS 2.5 MG/3 ML VIAL.NEB ONE (13:24)
[2018-02-11] MEDS ORDERED: IPRATROPIUM NEB FS 0.5 MG/2.5 ML AMPUL.NEB ONE (13:24)
[2018-02-11] MEDS ORDERED: ALBUTEROL FS 2.5 MG/3 ML VIAL.NEB NEB ONE (13:30)
[2018-02-11] MEDS ORDERED: IPRATROPIUM NEB FS 0.5 MG/2.5 ML AMPUL.NEB NEB ONE (13:30)
--- NOTE | 2018-02-11 14:20 | NUR ---
IV removed. Catheter intact and site benign. Pressure and 4x4 applied to site. No bleeding noted.
[2018-02-11 14:37] VITALS: BP 132/65
--- NOTE | 2018-02-11 14:37 | NUR ---
Patient discharged to home in stable condition. Written and verbal after care instructions given. Patient verbalizes understanding of instruction.
== END 2018-02-11 14:38 | disposition home or self-care (01) ==
LOC: ER 12:12
DX: J44.1 Chronic obstructive pulmonary disease with (acute) exacerbation (principal); R07.89 Other chest pain; I25.2 Old myocardial infarction; K21.9 Gastro-esophageal reflux disease without esophagitis; J96.10 Chronic respiratory failure, unspecified whether with hypoxia or hypercapnia; E78.00 Pure hypercholesterolemia, unspecified; Z85.46 Personal history of malignant neoplasm of prostate; Z86.19 Personal history of other infectious and parasitic diseases; Z87.891 Personal history of nicotine dependence; Z98.61 Coronary angioplasty status
CPT/HCPCS: 36415; 71045; 80048; 80076; 84484; 85025; 93005; 94644; 96374; 99285; A4606; J2270; J7040; Z7610

== ENCOUNTER 2018-03-11 10:28 | Inpatient (IN) | payer OTHER ==
[~2018-03-11] VITALS: Ht 177.8 cm; Wt 68.0 kg
[2018-03-11] MEDS ORDERED: ASPIRIN 81 MG TAB.CHEW ONE (10:50)
[2018-03-11] MEDS ORDERED: ASPIRIN 81 MG TAB.CHEW PO ONE (11:00)
--- NOTE | 2018-03-11 11:00 | NUR ---
PATIENT TO ED DT CHEST PAIN, 6, RADIATING TO BACK STARTED 5 DAYS AGO. PATIENT IS AWAKE AND ALERT.NO SOB. SKIN IS WARM TO TOUCH AND NON DIAHORETIC. PATIENT IS AFEBRILE.VSS
[2018-03-11 11:04] LABS: BASOPHILS # (AUTO) 0.1 /CMM (0.0-0.2); BASOPHILS % (AUTO) 1.1 % (0.0-2.0); EOSINOPHILS % (AUTO) 1.8 % (0.0-6.0); HEMATOCRIT 44 % (39-51); HEMOGLOBIN 14.6 g/dL (13.5-17.5); LYMPHOCYTES % (AUTO) 28.6 % (20.0-44.0); MEAN CORPUSCULAR HEMOGLOBIN 28 PG (26.0-33.0); MEAN CORPUSCULAR HGB CONC 33 g/dl (31.0-36.0); MEAN CORPUSCULAR VOLUME 84 fL (80-96); MONOCYTES # (AUTO) 0.6 /CMM (0.1-1.30); MONOCYTES % (AUTO) 9.1 % (2.0-12.0); NEUTROPHILS # (AUTO) 4.3 /CMM (1.8-8.9); NEUTROPHILS % (AUTO) 59.4 % (43.0-81.0); PLATELET COUNT (AUTO) 143 /CMM (150-450); RDW COEFFICIENT OF VARIATION 14.1 (11.5-15.0); RED BLOOD CELL COUNT(AUTO) 5.27 MIL/uL (4.5-6.0); WHITE BLOOD COUNT (AUTO) 7.1 K/uL (4.3-11.0)
[2018-03-11 11:16] LABS: CALCIUM, SERUM 9.3 mg/dL (8.5-10.1); CARBON DIOXIDE 29 mmol/L (21-32); CHLORIDE 103 mmol/L (98-107); GLUCOSE 89 mg/dL (74-106); POTASSIUM 4.7 mmol/L (3.5-5.1); SODIUM SERUM 136 mmol/L (136-145); UREA NITROGEN, BLOOD 23 mg/dL (7-18)
[2018-03-11 11:19] LABS: INR 1.06 (0.85-1.15)
[2018-03-11 11:24] LABS: TROPONIN I < 0.017 ng/mL (0.00-0.056)
[2018-03-11 11:25] LABS: ALANINE AMINOTRANSFERASE 17 U/L (12-78); ALBUMIN 3.9 g/dL (3.4-5.0); ALKALINE PHOSPHATASE 128 U/L (46-116); ASPARTATE AMINOTRANSFERASE 23 U/L (15-37); BILIRUBIN,DIRECT 0.1 mg/dL (0.0-0.2); BILIRUBIN,TOTAL 0.9 mg/dL (0.2-1.0); TOTAL PROTEIN, SERUM 7.5 g/dL (6.4-8.2)
--- NOTE | 2018-03-11 11:28 | NUR ---
CALLED NURSING CERTIFIED PEST CONTROL TECHNICIAN FOR TELE BED
--- NOTE | 2018-03-11 11:37 | NUR ---
PAGED DR PABLO DE LEON FOR PANEL ADMISSION
[2018-03-11] MEDS ORDERED: ACETAMINOPHEN 325 MG TABLET PO PRN (13:00)
[2018-03-11] MEDS ORDERED: NITROGLYCERIN 0.4 MG/TAB BOTTLE SL PRN (13:00)
[2018-03-11] MEDS ORDERED: MORPHINE SULFATE INJ 2 MG/ML DISP.SYRIN IV PRN (13:00)
[2018-03-11] MEDS ORDERED: ALBUTEROL FS 2.5 MG/0.5 ML VIAL.NEB HHN PRN (13:00)
[2018-03-11] MEDS ORDERED: MAG HYDROX/AL HYDROX/SIMETH 30 ML UDC PO PRN (13:00)
[2018-03-11] MEDS ORDERED: ZOLPIDEM TARTRATE 5 MG TABLET PO PRN (13:00)
[2018-03-11] MEDS ORDERED: Z GUARD REMEDY 2 OZ OINT TP PRN (13:00)
[2018-03-11] MEDS ORDERED: ONDANSETRON HCL/PF 4 MG/2 ML VIAL IVP PRN (13:00)
[2018-03-11] MEDS ORDERED: MAGNESIUM HYDROXIDE 30 ML UDC PO PRN (13:00)
--- NOTE | 2018-03-11 13:00 | NUR ---
ADMISSION NOTE RECEIVED PT VIA ORA IN RM 315-2. PT ADMITTED FOR CHEST PAIN. TELE MONITOR APPLIED, READING SB AT 50 BPM. PT HAS C/O CHEST PAIN 10/02, AWAITING ORDERS FROM HOSPITALIST. CARDIOLOGY F/U PERFORMED. PT TO HAVE CT ANGIO WITH 3D IMAGING IN AM. NPO AT MIDNIGHT. SAFETY MEASURES IN PLACE, CALL LIGHT WITHIN REACH. WILL CONTINUE TO MONITOR.
[2018-03-11] MEDS: MORPHINE SULFATE INJ 4 MG/ML DISP.SYRIN IV PRN ×2 (14:12→15:55)
[2018-03-11] MEDS: IPRATROPIUM NEB FS 0.5 MG/2.5 ML AMPUL.NEB HHN SCH ×2 (15:11→20:20)
[2018-03-11] MEDS: ENOXAPARIN SODIUM 40 MG/0.4 ML DISP.SYRIN SQ SCH (15:56)
[2018-03-11 16:00] VITALS: BP 160/87
--- NOTE | 2018-03-11 18:56 | NUR ---
RN CLOSING NOTES PT IN BED RESTING. NO S/S OF RESP DISTRESS OR SOB. NO C/O PAIN AT THIS TIME. TELE MONITOR READING SB AT 55 BPM. 18G IV ACCESS APPLIED TO LAC FOR CT ANGIO IN AM. CONSENT FORM SIGNED AND PLACED IN CHART. SAFETY MEASURES IN PLACE, CALL LIGHT WITHIN REACH. WILL ENDORSE TO MACHINE IRONER FOR SUDHEER.
--- NOTE | 2018-03-11 19:30 | NUR ---
TELE/RN OPENING NOTES PT RECEIVED AWAKE, A/OX3. ON ROOM AIR BREATHING EVEN AND UNLABORED. DENIES SOB AND PAIN AT THIS TIME. ECHO IN PROGRESS. ON TELE MONITOR SB 53. IV TO LEFT HAND AND LAC PATENT AND INTACT. BED IN LOW/LOCKED POSITION WITH CALL LIGHT IN REACH. BILATERAL UPPER SIDE RAILS IN PLACE. WILL CONTINUE TO MONITOR
[2018-03-11 20:00] VITALS: BP 126/67
[2018-03-11] MEDS: HYDROCODONE/APAP 5/325MG 1 EACH TABLET PO PRN (20:18)
[2018-03-12] VITALS: BP_SYST 106; BP_DIAS 58; BP_DIAS 98
[2018-03-12] MEDS: IPRATROPIUM NEB FS 0.5 MG/2.5 ML AMPUL.NEB HHN SCH ×4 (01:30→20:19)
--- NOTE | 2018-03-12 02:03 | NUR ---
RT NOTE PATIENT REFUSING TREATMENT AT THIS TIME. PRIMARY RN SVITLANA NOTIFIED. PATIENT HAS NO SIGNS OF RESPIRATORY DISTRESS AT THIS TIME. SPO2 94% ON ROOM AIR. WILL CONTINUE TO MONITOR PATIENT.
[2018-03-12 04:00] VITALS: BP 156/76
--- NOTE | 2018-03-12 05:30 | NUR ---
TELE/RN NOTES PT C/O INCREASING NON RADIATING CHEST PRESSURE 01/01. BP 137/79, HR 53, SPO2 92% ON RA. PLACED ON 2L O2 VIA NC. BREATHING EVEN AND UNLABORED. DENIES SOB. ADMINISTERED PRN NITRO ORDERED. VS RECHECKED, BP 121/63 HR 59, SPO2 97% ON 2L. PT STATES HE IS FEELING BETTER. NO CHANGES TO CARDIAC RHYTHM. WILL CONTINUE TO MONITOR
[2018-03-12 07:02] LABS: THYROID STIMULATING HORMONE 1.36 uIU/mL (0.358-3.74)
[2018-03-12 07:12] LABS: CALCIUM, SERUM 8.9 mg/dL (8.5-10.1); CREATININE 0.9 mg/dL (0.6-1.3); MAGNESIUM 1.7 mg/dL (1.8-2.4); PHOSPHORUS 3.6 mg/dL (2.5-4.9); POTASSIUM 4.1 mmol/L (3.5-5.1)
[2018-03-12 07:27] LABS: HEMATOCRIT 42 % (39-51); HEMOGLOBIN 14.3 g/dL (13.5-17.5); MEAN CORPUSCULAR VOLUME 83 fL (80-96); RED BLOOD CELL COUNT(AUTO) 4.99 MIL/uL (4.5-6.0); WHITE BLOOD COUNT (AUTO) 6.4 K/uL (4.3-11.0)
[2018-03-12 07:28] LABS: BASOPHILS % (AUTO) 0.8 % (0.0-2.0); EOSINOPHILS % (AUTO) 2.2 % (0.0-6.0); MEAN CORPUSCULAR HEMOGLOBIN 29 PG (26.0-33.0); MEAN CORPUSCULAR HGB CONC 34 g/dl (31.0-36.0); MONOCYTES % (AUTO) 14.4 % (2.0-12.0); NEUTROPHILS % (AUTO) 50.6 % (43.0-81.0); PLATELET COUNT (AUTO) 110 /CMM (150-450); RDW COEFFICIENT OF VARIATION 14.6 (11.5-15.0)
--- NOTE | 2018-03-12 07:54 | NUR ---
TELE/RN CLOSING NOTES PT WITH EYES CLOSED, A/OX3. ON 2L O2 VIA NC, BREATHING EVEN AND UNLABORED. DENIES SOB AND CPAIN AT THIS TIME. TELE MONITOR SB 50. IV TO LEFT HAND AND LAC PATENT AND INTACT. FOR CT ANGIO TODAY, CONSENT IN CHART. NO SIGNIFICANT CHANGES OVERNIGHT. MET ALL PT'S NEEDS. BED IN LOW/LOCKED POSITION WITH CALL LIGHT IN REACH. BILATERAL UPPER SIDE RAILS IN PLACE. ENDORSED TO DAY SHIFT RN SUDHEER.
[2018-03-12 08:00] VITALS: BP 135/74
--- NOTE | 2018-03-12 08:25 | NUR ---
EKG AND TROPONIN ORDERED FOR RECURRENT CHEST PAIN.
[2018-03-12] MEDS ORDERED: IOHEXOL-300 100 ML VIAL IV ONE (08:53)
[2018-03-12] MEDS ORDERED: IV NS 0.9% 250 ML IV ONE (08:53)
[2018-03-12] MEDS ORDERED: CT SWABBABLE VALVE TRANS SET 1 EA INFUS.SET MC ONE (08:53)
[2018-03-12] MEDS ORDERED: predniSONE 20 MG TABLET PO SCH (09:00)
[2018-03-12] MEDS ORDERED: TIOTROPIUM BROMIDE 6 CAP/BOX CAP.W.DEV IH SCH (09:00)
[2018-03-12] MEDS ORDERED: predniSONE 10 MG TABLET PO SCH ×2 (09:00)
[2018-03-12] MEDS ORDERED: predniSONE 20 MG TABLET GT SCH (09:00)
[2018-03-12] MEDS: MULTIVITAMINS,THERAGRAN 1 UDTAB TABLET PO SCH (10:07)
[2018-03-12] MEDS: TAMSULOSIN 0.4 MG CAP.SR.24H PO SCH (10:07)
[2018-03-12] MEDS: ASPIRIN EC 81 MG TABLET.DR PO SCH (10:08)
[2018-03-12] MEDS: ENOXAPARIN SODIUM 40 MG/0.4 ML DISP.SYRIN SQ SCH (10:08)
[2018-03-12] MEDS: Magnesium 1GM/D5W 100ML PREMIX 100 ML IV SCH ×2 (10:09→11:41)
--- NOTE | 2018-03-12 10:30 | NUR ---
CORONARY ANGIOGRAPHY COMPLETE .
[2018-03-12] MEDS: MORPHINE SULFATE INJ 4 MG/ML DISP.SYRIN IV PRN ×3 (10:50→19:06)
--- NOTE | 2018-03-12 10:50 | NUR ---
MED. WITH MORPHINE FOR LT. CHEST PAIN.
[2018-03-12] MEDS ORDERED: LEVALBUTEROL HCL NEB 1.25 MG/0.5 ML VIAL.NEB IH SCH (11:00)
--- NOTE | 2018-03-12 12:30 | NUR ---
MG REPLACEMENT IV.
[2018-03-12] MEDS: ALBUTEROL FS 2.5 MG/0.5 ML VIAL.NEB NEB SCH ×2 (14:34→23:30)
[2018-03-12 16:00] VITALS: BP 115/66
--- NOTE | 2018-03-12 19:12 | NUR ---
MED. X2 WITH MORPHINE FOR CHEST PAIN,NO RELIEF FROM 1ST INJECTION.
--- NOTE | 2018-03-12 19:20 | NUR ---
MS RN OPENING NOTE Patient was seen lying in bed AAOx4, breathing on 3L O2 NC with no SOB, and no signs of acute distress. Patient states that RN Rosa M gave him pain medication recently for chest pain; he states that it has decreased from 8/10 to 5/10 and feels it is continuing to improve. Pain is non-radiating. Patient has IVs in the right hand and left AC, both SL intact and patent. 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 Bed is low/locked, two side rails up, and call liu within reach. Patient has no immediate needs or concerns at this time. Will continue to monitor.
[2018-03-12 20:00] VITALS: BP 122/75
[2018-03-12 21:43] VITALS: BP 122/75
[2018-03-13] MEDS: IPRATROPIUM NEB FS 0.5 MG/2.5 ML AMPUL.NEB HHN SCH ×3 (01:30→13:51)
[2018-03-13 06:51] LABS: CALCIUM, SERUM 8.8 mg/dL (8.5-10.1); CREATININE 0.9 mg/dL (0.6-1.3); PHOSPHORUS 3.8 mg/dL (2.5-4.9); POTASSIUM 3.8 mmol/L (3.5-5.1)
[2018-03-13 07:18] LABS: BASOPHILS % (AUTO) 0.7 % (0.0-2.0); EOSINOPHILS % (AUTO) 1.8 % (0.0-6.0); HEMATOCRIT 43 % (39-51); LYMPHOCYTES # (AUTO) 1.7 /CMM (0.8-4.8); LYMPHOCYTES % (AUTO) 30.5 % (20.0-44.0); MEAN CORPUSCULAR HEMOGLOBIN 28 PG (26.0-33.0); MEAN CORPUSCULAR HGB CONC 33 g/dl (31.0-36.0); MEAN CORPUSCULAR VOLUME 84 fL (80-96); MONOCYTES # (AUTO) 0.7 /CMM (0.1-1.30); MONOCYTES % (AUTO) 11.6 % (2.0-12.0); NEUTROPHILS # (AUTO) 3.2 /CMM (1.8-8.9); NEUTROPHILS % (AUTO) 55.4 % (43.0-81.0); PLATELET COUNT (AUTO) 119 /CMM (150-450); RDW COEFFICIENT OF VARIATION 13.6 (11.5-15.0); RED BLOOD CELL COUNT(AUTO) 5.09 MIL/uL (4.5-6.0); WHITE BLOOD COUNT (AUTO) 5.7 K/uL (4.3-11.0)
[2018-03-13] MEDS: ALBUTEROL FS 2.5 MG/0.5 ML VIAL.NEB NEB SCH ×2 (07:24→13:51)
--- NOTE | 2018-03-13 07:30 | NUR ---
RECEIVED PT. ALERT AND ORIENTED X4.VS STABLE.HEP LOCKS IN PLACE.
--- NOTE | 2018-03-13 07:31 | NUR ---
MS RN CLOSING NOTE Patient is sleeping in bed but awakens easily to name. He is oriented x4, breathing on 2L O2 NC with no SOB, and no signs of acute distress. Patient slept well overnight with no complications and vital signs remain stable. Patient did not report chest pain overnight. SL IVs in right hand and left AC remain intact and patent. Bed is low/locked, two side rails up, and call liu within reach. Patient care endorsed to day shift nurse.
[2018-03-13 08:00] VITALS: BP 113/65
[2018-03-13] MEDS ORDERED: RIVA10TA PO (08:47)
[2018-03-13] MEDS ORDERED: ASPI-1152 PO (08:47)
[2018-03-13] MEDS: MULTIVITAMINS,THERAGRAN 1 UDTAB TABLET PO SCH (09:24)
[2018-03-13] MEDS: ASPIRIN EC 81 MG TABLET.DR PO SCH (09:24)
[2018-03-13] MEDS: TAMSULOSIN 0.4 MG CAP.SR.24H PO SCH (09:24)
[2018-03-13] MEDS: methylPREDNISolone SOD SUCC 40 MG/ML VIAL IV SCH ×2 (09:36→13:07)
[2018-03-13] MEDS: HYDROCODONE/APAP 5/325MG 1 EACH TABLET PO PRN (09:37)
--- NOTE | 2018-03-13 09:37 | NUR ---
MEDICATED FOR HEAD PAIN ON RT. SIDE OF HEAD.PT. COOPERATIVE AND PLEASANT.
--- NOTE | 2018-03-13 14:00 | NUR ---
RESP. IN AND ORDERED SOLUMEDROL .DR. FELTON INFORMED.
--- NOTE | 2018-03-13 14:30 | NUR ---
refused discharge photo of stump scar.
--- NOTE | 2018-03-13 14:45 | NUR ---
GIVEN NEW PRESCRIPTIONS AND INSTRUCTED ON SAME.
--- NOTE | 2018-03-13 15:30 | NUR ---
HEP LOCKS OUT. HEAR.ALL PAPERS SIGNED INCLUDING BELONGING SHEET.ESCORTED TO LOBBY VIA W/C WITHOUT O2. PT. REFUSES O2. STATES HAS O2 TANK IN CAR WELL AT HOME,AND ADDITIONALLY HAS HHN SUPPLIES AT HOME.PT. HAS OWN WHEEL CHAIR.GIVEN EXPLICIT INSTRUCTIONS REGARDING FOLLOW UP WITH PULMONARY AND CARDIOLOGY.AWARE HE NEEDS CT OF CHEST AGAIN IN 3 MONTHES.
[2018-03-13] MEDS ORDERED: RIVAROXABAN 10 MG TABLET PO SCH (17:00)
== END 2018-03-13 15:10 | disposition home or self-care (01) | DRG 191 ==
LOC: ER 10:31 → TELE 11:57 → MED 03-12 09:31
DX: J44.1 Chronic obstructive pulmonary disease with (acute) exacerbation (principal); J96.10 Chronic respiratory failure, unspecified whether with hypoxia or hypercapnia; I25.10 Atherosclerotic heart disease of native coronary artery without angina pectoris; K21.9 Gastro-esophageal reflux disease without esophagitis; I25.2 Old myocardial infarction; Z99.81 Dependence on supplemental oxygen; Z95.5 Presence of coronary angioplasty implant and graft; M10.9 Gout, unspecified; Z85.46 Personal history of malignant neoplasm of prostate; I73.9 Peripheral vascular disease, unspecified; Z89.512 Acquired absence of left leg below knee; Z87.891 Personal history of nicotine dependence; Z86.711 Personal history of pulmonary embolism; E78.00 Pure hypercholesterolemia, unspecified; M06.9 Rheumatoid arthritis, unspecified
CPT/HCPCS: 36415; 71045-TC; 75574; 80048-TC; 80061-TC; 80076-TC; 83735-TC; 84100-TC; 84443-TC; 84484-TC; 85025-TC; 85730-TC; 87081-TC; 93307-TC; 93970-TC; A4606; A6402; J1650; J2270; J2920; J3475; J7050; Q9967; Z7610

== ENCOUNTER 2018-10-25 14:40 | Inpatient (IN) | payer MEDICARE, OTHER ==
[~2018-10-25] VITALS: Ht 177.8 cm; Wt 60.3 kg
[~2018-10-25 14:40] MED LIST changes: +ASPI-1152 PO; +HYDR-4354 PO; -HYDR-548 PO; -LEVO500T2 PO; +RIVA10TA PO
--- NOTE | 2018-10-25 14:50 | NUR ---
CHEST PAIN X 2 WEEKS,GETTING WORSE, PATIENT A/OX4, C/O CHEST PAIN DESCRIBES THROBBING. NO DISTRESS NOTED, PLACED ON THE MONITOR. PENDING MD ELENA.
[2018-10-25] MEDS ORDERED: diphenhydrAMINE HCL 50 MG/ML VIAL IV ONE (15:30)
[2018-10-25] MEDS ORDERED: METOCLOPRAMIDE HCL 10 MG/2 ML VIAL IV ONE (15:30)
[2018-10-25 15:31] LABS: BASOPHILS # (AUTO) 0.1 /CMM (0.0-0.2); BASOPHILS % (AUTO) 1.2 % (0.0-2.0); EOSINOPHILS % (AUTO) 1.2 % (0.0-6.0); HEMATOCRIT 42 % (39-51); HEMOGLOBIN 14.2 g/dL (13.5-17.5); LYMPHOCYTES % (AUTO) 27.5 % (20.0-44.0); MEAN CORPUSCULAR HGB CONC 34 g/dl (31.0-36.0); MEAN CORPUSCULAR VOLUME 87 fL (80-96); NEUTROPHILS # (AUTO) 4.2 /CMM (1.8-8.9); NEUTROPHILS % (AUTO) 57.1 % (43.0-81.0); PLATELET COUNT (AUTO) 102 /CMM (150-450); RED BLOOD CELL COUNT(AUTO) 4.85 MIL/uL (4.5-6.0); WHITE BLOOD COUNT (AUTO) 7.4 K/uL (4.3-11.0)
[2018-10-25] MEDS ORDERED: diphenhydrAMINE HCL 50 MG/ML VIAL ONE (15:34)
[2018-10-25] MEDS ORDERED: METOCLOPRAMIDE HCL 10 MG/2 ML VIAL ONE (15:34)
[2018-10-25 16:04] LABS: BILIRUBIN,DIRECT 0.2 mg/dL (0.0-0.2); BILIRUBIN,TOTAL 0.5 mg/dL (0.2-1.0); CREATININE 1.1 mg/dL (0.6-1.3); POTASSIUM 4.3 mmol/L (3.5-5.1); TOTAL PROTEIN, SERUM 7.3 g/dL (6.4-8.2)
--- NOTE | 2018-10-25 16:09 | NUR ---
[facility] PAGED ELVIS
[2018-10-25] MEDS ORDERED: ASPIRIN 325 MG TABLET ONE (16:22)
[2018-10-25] MEDS ORDERED: MORPHINE SULFATE INJ 4 MG/ML DISP.SYRIN ONE (16:24)
[2018-10-25] MEDS ORDERED: ATOR40TA PO (16:29)
[2018-10-25] MEDS ORDERED: LISI2.5T2 PO (16:29)
[2018-10-25] MEDS ORDERED: CARV3.122 PO (16:29)
[2018-10-25] MEDS ORDERED: PANT40TA2 PO (16:29)
[2018-10-25] MEDS ORDERED: GABA-534 PO (16:29)
[2018-10-25] MEDS ORDERED: DULO30CA2 PO (16:29)
[2018-10-25] MEDS ORDERED: BACL10TA PO (16:29)
[2018-10-25] MEDS ORDERED: METO25TA20 PO (16:29)
[2018-10-25] MEDS ORDERED: ASPIRIN 325 MG TABLET PO ONE (16:30)
[2018-10-25] MEDS ORDERED: ASCO500T9 PO (16:30)
[2018-10-25] MEDS ORDERED: MORPHINE SULFATE INJ 2 MG/ML DISP.SYRIN IV ONE (16:30)
--- NOTE | 2018-10-25 16:52 | NUR ---
[address] [facility] LEAL ACCEPTING DX CP
--- NOTE | 2018-10-25 17:39 | NUR ---
REPORT GIVEN TO PARVIN HERNANDEZ TO ROOM 102. PATIENT IN NO DISTRESS. NO SOB NOTED, ON O2 AT 2LPM VIA NC. WILL MONITOR.
--- NOTE | 2018-10-25 17:59 | NUR ---
PATIENT TRANSFERRED TO ROOM 102 VIA ACLS PROTOCOL. PATIENT IN STABLE CONDITION, BREATHING EVEN AND UNLABORED, VSS, NO DISTRESS NOTED. ENDORSED TO PARVIN HERNANDEZ.
[2018-10-25 18:14] VITALS: BP 141/87
--- NOTE | 2018-10-25 18:16 | NUR ---
Received awake alert patient in room 102. Vital signs taken. Medication reconciliation appears complete. Patient will need admission order set. Will notify Doctor MD Dinorah.
[2018-10-25] MEDS ORDERED: ENOXAPARIN SODIUM 40 MG/0.4 ML DISP.SYRIN SQ SCH (18:30)
[2018-10-25] MEDS ORDERED: ACETAMINOPHEN 325 MG TABLET PO PRN (18:30)
[2018-10-25] MEDS ORDERED: Z GUARD REMEDY 2 OZ OINT TP PRN (18:30)
[2018-10-25] MEDS ORDERED: MAGNESIUM HYDROXIDE 30 ML UDC PO PRN (18:30)
[2018-10-25] MEDS ORDERED: MAG HYDROX/AL HYDROX/SIMETH 30 ML UDC PO PRN (18:30)
[2018-10-25] MEDS ORDERED: ZOLPIDEM TARTRATE 5 MG TABLET PO PRN (18:30)
[2018-10-25] MEDS ORDERED: ONDANSETRON HCL/PF 4 MG/2 ML VIAL IVP PRN (18:30)
[2018-10-25] MEDS ORDERED: IPRATROPIUM NEB FS 0.5 MG/2.5 ML AMPUL.NEB HHN PRN (19:00)
[2018-10-25] MEDS ORDERED: ALBUTEROL FS 2.5 MG/0.5 ML VIAL.NEB HHN PRN (19:00)
[2018-10-25 20:00] VITALS: BP 121/84
[2018-10-25] MEDS: IPRATROPIUM NEB FS 0.5 MG/2.5 ML AMPUL.NEB HHN SCH (20:16)
[2018-10-25] MEDS: GABAPENTIN 300 MG CAPSULE PO SCH (21:38)
[2018-10-25] MEDS: IV NS 0.9% 1,000 ML IV PRN (21:39)
[2018-10-25] MEDS: HYDROCODONE/APAP 10/325MG 1 EA TABLET PO PRN (23:16)
[2018-10-26 00:22] VITALS: BP 127/78
--- NOTE | 2018-10-26 00:48 | NUR ---
RN NOTES: AT 0038 PATIENT WAS ENDORSED BY GREGORIO(RN), DX:NSTEMI, A/0X4, ON O2 AT 2L/MIN SPO2-94%,LEFT BKA, CANNULA IN LH G#20 NS AT 75 ML/HR ONGOING VIA INFUSION PUMP, HAD HIS SLEEPING PILL AT 2138 AND PAIN MEDICATION AT 2300, SLEEPING COMFORTABLY IN BED, BED LOW AND LOCKED, CALL LIGHT WITHIN EASY REACH,FALL,SAFETY AND ASPIRATION PRECAUTION OBSERVED.FOR LABS IN THE MORNING, FOR CARDIOLOGY F/U.
[2018-10-26] MEDS: IPRATROPIUM NEB FS 0.5 MG/2.5 ML AMPUL.NEB HHN SCH ×4 (00:56→19:09)
--- NOTE | 2018-10-26 01:05 | NUR ---
RN NOTES: PATIENT AWAKE NO CHEST PAIN, ORIENTED TO UNIT AND STAFF,CHANGE OF ASSIGNED RN,HE HAS SLIGHT EXPIRATORY WHEEZING ON THE RIGHT UPPER CHEST FIELD, HAND HELD NEBULIZER RENDERED BY RT. KEPT COMFORTABLE IN BED, CALL LIGHT WITHIN EASY REACH.
[2018-10-26] MEDS: HYDROCODONE/APAP 10/325MG 1 EA TABLET PO PRN ×3 (03:38→14:46)
--- NOTE | 2018-10-26 03:38 | NUR ---
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 CALL LIGHT KEPT WITHIN EASY REACH.
[2018-10-26 04:00] VITALS: BP 134/91
--- NOTE | 2018-10-26 06:26 | NUR ---
RN NOTES: ABLE TO SLEEP AND REST,ON O2 INHALATION, IVF ONGOING, NO PAIN AND DISCOMFORT AT THIS TIME, NO SOB OR RESPIRATORY DISTRESS NOTED,CALL LIGHT WITHIN EASY REACH, KEPT ON CLOSE WATCH.ENDORSED FOR CONTINUITY OF CARE.
--- NOTE | 2018-10-26 07:12 | NUR ---
BANK CREDIT CARD COLLECTION CLERK OPENING NOTES: RECEIVED PT AWAKE IN BED IN NO ACUTE SIGNS OF DISTRESS. A/0 X4. ABLE TO VERBALIZED NEEDS, DENIES PAIN OR DISCOMFORTS AT THIS TIME. ON O2 AT 2LPM VIA N/C, TOLERATING WELL WITH NO SOB NOTED. ON TELEMONITORING WITH CURRENT READING OF SR WITH HR OF 66, NO C/O CARDIAC DISTRESS VOICED. IV ACCESS ON LEFT HAND INTACT AND PATENT, IVF OF NS AT 75 ML/HR INFUSING WELL, NO S/S OF INFILTRATIONS NOTED. SAFETY MEASURES IN PLACE. BED IN LOW LOCKED POSITION WITH SR UP X2. CALL LIGHT WITHIN EASY REACH. WILL CONTINUE TO MONITOR.
[2018-10-26 07:23] LABS: CALCIUM, SERUM 8.2 mg/dL (8.5-10.1); CREATININE 0.9 mg/dL (0.6-1.3); MAGNESIUM 1.9 mg/dL (1.8-2.4); PHOSPHORUS 3.5 mg/dL (2.5-4.9); POTASSIUM 3.9 mmol/L (3.5-5.1)
[2018-10-26] MEDS: PANTOPRAZOLE 40 MG TABLET.DR PO SCH (07:43)
[2018-10-26 07:44] LABS: BASOPHILS % (AUTO) 0.7 % (0.0-2.0); EOSINOPHILS % (AUTO) 1.2 % (0.0-6.0); HEMATOCRIT 36 % (39-51); HEMOGLOBIN 12.4 g/dL (13.5-17.5); LYMPHOCYTES % (AUTO) 35.7 % (20.0-44.0); MEAN CORPUSCULAR HGB CONC 34 g/dl (31.0-36.0); MEAN CORPUSCULAR VOLUME 86 fL (80-96); MONOCYTES # (AUTO) 0.7 /CMM (0.1-1.30); MONOCYTES % (AUTO) 11.7 % (2.0-12.0); NEUTROPHILS # (AUTO) 2.8 /CMM (1.8-8.9); NEUTROPHILS % (AUTO) 50.7 % (43.0-81.0); PLATELET COUNT (AUTO) 89 /CMM (150-450); RED BLOOD CELL COUNT(AUTO) 4.24 MIL/uL (4.5-6.0); WHITE BLOOD COUNT (AUTO) 5.6 K/uL (4.3-11.0)
[2018-10-26 08:00] VITALS: BP 151/79
[2018-10-26] MEDS: ATORVASTATIN 40 MG TABLET PO SCH (08:16)
[2018-10-26] MEDS: ASCORBIC ACID 500 MG TABLET PO SCH (08:17)
[2018-10-26] MEDS: METOPROLOL TARTRATE 25 MG TABLET PO SCH ×2 (08:17→16:49)
[2018-10-26] MEDS: ASPIRIN EC 81 MG TABLET.DR PO SCH (08:17)
[2018-10-26] MEDS: DULOXETINE HCL 30 MG CAPSULE.DR PO SCH (08:18)
[2018-10-26] MEDS: LISINOPRIL (5MG) 5 MG TABLET PO SCH (08:18)
[2018-10-26] MEDS: BACLOFEN (10 MG) 10 MG TABLET PO SCH ×3 (08:18→16:49)
[2018-10-26] MEDS: GABAPENTIN 300 MG CAPSULE PO SCH ×2 (08:18→21:24)
--- NOTE | 2018-10-26 08:20 | NUR ---
RN NOTES/ PAIN MANAGEMENT PT COMPLAINED OF ACHING PAIN ON THE LEFT CHEST, LEFT SIDE OF HIS NECK AND PHANTOM PAIN ON LEFT BKA WITH SCALE OF 8/10. PRN NORCO 10/325NG PO GIVEN AT 0815. WILL CONTINUE TO MONITOR AND REASSESS PT.
--- NOTE | 2018-10-26 08:35 | NUR ---
RN NOTES RECEIVED CALL FROM CT RADIOLOGIST BETTE REGARDING PT'S CT ANGIO AND HE SAID THAT SCAN WILL BE DONE TODAY AND TO OBTAIN CONSENT FOR THE PROCEDURE.
[2018-10-26 08:43] LABS: EOSINOPHILS % (MANUAL) 1 % (0-4); LYMPHOCYTES % (MANUAL) 42 % (16-48); MONOCYTES % (MANUAL) 7 % (0-11.0); NEUTROPHILS % (MANUAL) 50 (42-76)
[2018-10-26] MEDS ORDERED: CARVEDILOL 3.125 MG TABLET PO SCH (09:00)
[2018-10-26] MEDS ORDERED: TIOTROPIUM BROMIDE 6 CAP/BOX CAP.W.DEV IH SCH (09:00)
[2018-10-26] MEDS ORDERED: METOPROLOL TARTRATE 25 MG TABLET PO SCH (09:00)
--- NOTE | 2018-10-26 10:32 | NUR ---
RN NOTES PATIENT SEEN AND EVALUATED BY DR CRAWFORD. TELEMONITORING DISCONTINUED AND ORDERED TO DO CTA OF HEART WITH 3D IMAGE. EXPLAINED PROCEDURE TO PT AND VERBALIZED UNDERSTANDING. CONSENT SIGNED BY PT AND FILED ON CHART.
[2018-10-26] MEDS: IV NS 0.9% 1,000 ML IV PRN ×2 (11:01→23:42)
--- NOTE | 2018-10-26 14:48 | NUR ---
MARY NOTES/ PAIN MANAGEMENT PT C/O ACHING PAIN ON THE LEFT SIDE OF HIS NECK WITH SCALE OF 8/10. NALINI LAO 10/325NG PO GIVEN AT 1446. WILL CONTINUE TO MONITOR AND REASSESS PT. Addendum: 10/26/18 at 1551 by OLAF BHANDARI RN CORRECTION: PAIN IS IN THE RIGHT SIDE OF NECK NOT LEFT
--- NOTE | 2018-10-26 15:17 | NUR ---
RN NOTES RESULTS OF BLE VENOUS DUPLEX SHOWS CHANGES OF ACUTE DVT PROXIMAL LEFT LOWER EXTREMITY. LEFT MESSAGE TO DR LEAL. AWAITING FOR RESPONSE.
--- NOTE | 2018-10-26 15:25 | NUR ---
RN NOTES CALLED CT [facility] AND SPOKE TO SAMUEL TO F/U REGARDING WHEN ARE THEY GOING TO DO CT ANGIO. HE SAID THAT THEY'RE WAITING FOR THE NURSE TO HELP THEM WITH THE PROCEDURE. HE SAID TO CALL US BACK ONCE EVERYTHING IS READY.
--- NOTE | 2018-10-26 15:32 | NUR ---
RN NOTES RECEIVED CALL FROM MANAGER ARCHITECTURAL NAMED AURELIO AND SAID THAT THEY'RE STILL WAITING FOR THE NURSE THAT WILL HELP THEM GIVE THE CONTRAST MED DURING THE PROCEDURE. HE SAID THAT NURSE ROPE CUTTER IS AWARE.
[2018-10-26 16:00] VITALS: BP 156/87
--- NOTE | 2018-10-26 16:42 | NUR ---
RN NOTES PATIENT SEEN AND EVALUATED BY DR LEAL WITH ORDER TO ADMINISTER KETORALAC 30MG IM X 1 DOSE AND CONTINUE XARELTO 20MG PO DAILY DESPITE WITH LOW PLATELET OF 89. WILL CONTINUE TO MONITOR.
[2018-10-26] MEDS: RIVAROXABAN 10 MG TABLET PO SCH (16:50)
--- NOTE | 2018-10-26 16:56 | NUR ---
RN NOTES KETORALAC 30 MG/1ML IM X 1 DOSE ADMINISTERED TO RIGHT DELTOID FOR PAIN TO RIGHT SIDE OF NECK PER MD ORDERED. WILL CONTINUE TO MONITOR EFFECTIVENESS OF MED.
[2018-10-26] MEDS ORDERED: KETOROLAC TROMETHAMINE INJ 30 MG/ML VIAL IM ONE (17:00)
--- NOTE | 2018-10-26 18:11 | NUR ---
RN NOTES CALLED ACID REMOVER "AURELIO" JUST NOW TO F/U ON PT'S CTA AND HE SAID THAT IT WILL BE DONE TOMORROW BECAUSE THERE WAS NO NURSE TO HELP THEM TODAY TO ADMINISTER CONTRAST MEDIUM FOR THE PROCEDURE. WILL ENDORSE TO CHAIN REPAIRER NURSE.
--- NOTE | 2018-10-26 18:32 | NUR ---
ROBERT RN CLOSING NOTES: PT IN BED AWAKE AND WATCHING TV AT THIS TIME. A/0 X4. ABLE TO MAKE NEEDS KNOWN. MAINTAINED ON O2 @ 2LPM VIA N/C, TOLERATING WELL WITH NO SOB NOTED. PIV'S ON RFA G @18 AND LEFT HAND G #20 BOTH INTACT AND PATENT, IVF OF NS @ 75 ML/HR INFUSING WELL TO LH, NO S/S OF INFILTRATIONS NOTED. ALL NEEDS NAD CARE ATTENDED WELL. SAFETY MEASURES IN PLACE. BED IN LOW LOCKED POSITION WITH SR UP X2. CALL LIGHT WITHIN EASY REACH. WILL ENDORSE TO LIGHT INDUSTRIAL SUPERVISOR NURSE FOR SUDHEER.
--- NOTE | 2018-10-26 19:10 | NUR ---
CHARGE OF SHIFT REPORT Received patient in bed, awake. A/O x 4 On oxygen at 2L via NC denies shortness of breath at rest and with exertion. IVF infusing, denies pain. Instruction given to use call light for assistance, verbalized understanding.
[2018-10-26 20:00] VITALS: BP 163/98
--- NOTE | 2018-10-26 20:00 | NUR ---
ELEVATED BP BP 163/93 P63 Patient denies headache, no c/o nausea no vomiting. Will cont to monitor.
[2018-10-26] MEDS: HYDROCODONE/APAP 5/325MG 1 EACH TABLET PO PRN (20:20)
[2018-10-26 21:36] VITALS: BP 164/88
--- NOTE | 2018-10-26 21:36 | NUR ---
ELEVATED BP Rechecked BP 164/88 P57 Notified AMRIT Bolanos with no new order at this time.
[2018-10-27] MEDS: IPRATROPIUM NEB FS 0.5 MG/2.5 ML AMPUL.NEB HHN SCH ×4 (01:01→19:26)
[2018-10-27 04:00] VITALS: BP 157/84
[2018-10-27] MEDS: HYDROCODONE/APAP 5/325MG 1 EACH TABLET PO PRN ×2 (04:10→20:34)
--- NOTE | 2018-10-27 06:28 | NUR ---
END OF SHIFT REPORT Patient in bed, On supplemental oxygen at 2L via NC denies shortness of breath at rest and with exertion. IVF infusing, maintained at 75 ml/hr. C/O headache which ongoing for a week per patient, given PRN [place] with intermittent relief, denies nausea no vomiting, Head CT negative for IH. Wheelchair bound, maintained safety. Planned CTA.
[2018-10-27 08:00] VITALS: BP_SYST 151; BP_SYST 157; BP_DIAS 84
[2018-10-27] MEDS: PANTOPRAZOLE 40 MG TABLET.DR PO SCH (08:27)
[2018-10-27] MEDS: GABAPENTIN 300 MG CAPSULE PO SCH ×2 (08:28→20:28)
[2018-10-27] MEDS: ASPIRIN EC 81 MG TABLET.DR PO SCH (08:28)
[2018-10-27] MEDS: ATORVASTATIN 40 MG TABLET PO SCH (08:29)
[2018-10-27] MEDS: DULOXETINE HCL 30 MG CAPSULE.DR PO SCH (08:29)
[2018-10-27] MEDS: ASCORBIC ACID 500 MG TABLET PO SCH (08:29)
[2018-10-27] MEDS: LISINOPRIL (5MG) 5 MG TABLET PO SCH (08:30)
[2018-10-27] MEDS: METOPROLOL TARTRATE 25 MG TABLET PO SCH ×2 (08:36→16:58)
[2018-10-27] MEDS: BACLOFEN (10 MG) 10 MG TABLET PO SCH ×3 (08:36→16:58)
[2018-10-27 16:00] VITALS: BP_SYST 122; BP_SYST 158; BP_DIAS 53; BP_DIAS 71
[2018-10-27] MEDS: RIVAROXABAN 10 MG TABLET PO SCH (16:57)
[2018-10-27] MEDS: HYDROCODONE/APAP 10/325MG 1 EA TABLET PO PRN (17:00)
--- NOTE | 2018-10-27 19:37 | NUR ---
MS RN OPENING NOTES: RECEIVED PT WITH FAMILY MEMBERS AT BEDSIDE. PT RECEIVING BREATHING TX AT THIS TIME. NO SOB NOTED. NO S/S OF DISTRESS. NO IVS NOTED AT THIS TIME. WILL ATTEMPT TO START A NEW IV. BED KEPT IN LOW, LOCKED POSITION, AND SIDE RAILS X 2UP. WILL CONTINUE TO MONITOR PT.
[2018-10-27 20:00] VITALS: BP 159/86
--- NOTE | 2018-10-27 20:35 | NUR ---
MS RN NOTES: PT COMPLAINING OF 7/10 PAIN ON HIS RIGHT SIDE OF HEAD. PT WAS ADMINISTERED NORCO 5 PO. WILL CONTINUE TO MONITOR.
--- NOTE | 2018-10-27 20:36 | NUR ---
MS RN NOTES: OFFERED TO START IV ON PT. PT REFUSING TO HAVE IV STARTED AT THIS TIME. WOULD LIKE IT TOMORROW. EXPLAINED TO PT BENEFITS OF HAVING AN IV. PT STILL REFUSING AT THIS TIME. WILL ATTEMPT AT ANOTHER TIME.
[2018-10-28] MEDS: IPRATROPIUM NEB FS 0.5 MG/2.5 ML AMPUL.NEB HHN SCH ×4 (00:40→19:43)
[2018-10-28] MEDS: HYDROCODONE/APAP 5/325MG 1 EACH TABLET PO PRN ×2 (00:59→10:17)
--- NOTE | 2018-10-28 01:00 | NUR ---
MS RN NOTES: PT SITTING UP IN BED AND CANNOT FALL ASLEEP. PT VERBALIZING THAT HE STILL A HEADACHE (RIGHT SIDE) 01/01. PT WAS ADMINISTERED NORCO 5 PO. ALSO ENCOURAGED PT TO DRINK MORE PO FLUIDS. PT STILL REFUSING TO HAVE IV INSERTED. WILL ATTEMPT AGAIN AT ANOTHER TIME.
[2018-10-28 04:00] VITALS: BP 176/87
[2018-10-28] MEDS: HYDROCODONE/APAP 10/325MG 1 EA TABLET PO PRN ×3 (05:04→20:41)
--- NOTE | 2018-10-28 05:06 | NUR ---
MS RN NOTES: PT SAYING HIS PAIN IS GOING UP THERE FROM 03/04 . PAIN IS IN HIS RIGHT SIDE OF HEAD AND NECK. PT WAS ADMINISTERED NORCO 10 PO. WILL CONTINUE TO MONITOR.
--- NOTE | 2018-10-28 05:35 | NUR ---
MS RN NOTES: OFFERED IV START FOR PT AND PT AGREED. IV STARTED ON R HAND #24 G AND CONNECTED TO IV NS AT 75ML/HR.
[2018-10-28 06:16] VITALS: BP 153/95
--- NOTE | 2018-10-28 06:28 | NUR ---
MS RN CLOSING NOTES: ALL NEEDS WERE ATTENDED AND ANTICIPATED FOR. PT KEPT CLEAN, DRY, AND COMFORTABLE. PT ON ROOM AIR AND TOLERATING WELL. NO SOB NOTED. NO S/S OF DISTRESS. PT UP AND ON PHONE RIGHT NOW. PT HAS IV ON R HAND #24G AND IS BEING INFUSED WITH IV NS AT 75ML/HR. BED KEPT IN LOW, LOCKED POSITION, AND SIDE RAILS X 2UP. WILL ENDORSE TO AM NURSE FOR SUDHEER.
[2018-10-28 06:54] LABS: BASOPHILS % (AUTO) 0.6 % (0.0-2.0); EOSINOPHILS % (AUTO) 1.5 % (0.0-6.0); HEMATOCRIT 38 % (39-51); HEMOGLOBIN 12.8 g/dL (13.5-17.5); LYMPHOCYTES % (AUTO) 31.9 % (20.0-44.0); MEAN CORPUSCULAR HGB CONC 34 g/dl (31.0-36.0); MEAN CORPUSCULAR VOLUME 86 fL (80-96); MONOCYTES # (AUTO) 0.7 /CMM (0.1-1.30); MONOCYTES % (AUTO) 11.2 % (2.0-12.0); NEUTROPHILS # (AUTO) 3.5 /CMM (1.8-8.9); NEUTROPHILS % (AUTO) 54.8 % (43.0-81.0); PLATELET COUNT (AUTO) 93 /CMM (150-450); RED BLOOD CELL COUNT(AUTO) 4.38 MIL/uL (4.5-6.0); WHITE BLOOD COUNT (AUTO) 6.3 K/uL (4.3-11.0)
--- NOTE | 2018-10-28 07:00 | NUR ---
MS RN OPENING NOTES RECEIVED PT LYING ON BED.ALERT/ORIENTED X4.ON 2 L O2 VIA NC CONTINUOUSLY.NO SOB AND ACUTE DISTRESS NOTED.LEFT BKA NOTED.NO PAIN NOTED FOR NOW.IV LINE IS ON RIGHT HAND G24,IV NS @75CC/HR IS RUNNING.IV SITE IS CLEAN,DRY AND INTACT.NO INFILTRATION NOTED.SAFETY IS MAINTAINED AT ALL TIMES.BED IS IN LOW POSITION AND LOCKED,CALL LIGHT IS WITHIN REACH. WILL CONTINUE TO MONITOR THE PT CLOSELY.
[2018-10-28 07:06] LABS: ALBUMIN 3.4 g/dL (3.4-5.0); BILIRUBIN,TOTAL 0.8 mg/dL (0.2-1.0); CALCIUM, SERUM 8.7 mg/dL (8.5-10.1); CREATININE 0.8 mg/dL (0.6-1.3); MAGNESIUM 1.9 mg/dL (1.8-2.4); PHOSPHORUS 2.9 mg/dL (2.5-4.9); POTASSIUM 4.1 mmol/L (3.5-5.1); TOTAL PROTEIN, SERUM 6.4 g/dL (6.4-8.2)
[2018-10-28] MEDS: PANTOPRAZOLE 40 MG TABLET.DR PO SCH (07:53)
[2018-10-28 08:00] VITALS: BP 180/92
[2018-10-28] MEDS: METOPROLOL TARTRATE 25 MG TABLET PO SCH ×2 (08:17→16:52)
[2018-10-28] MEDS: ASCORBIC ACID 500 MG TABLET PO SCH (08:17)
[2018-10-28] MEDS: ATORVASTATIN 40 MG TABLET PO SCH (08:17)
[2018-10-28] MEDS: BACLOFEN (10 MG) 10 MG TABLET PO SCH ×3 (08:17→16:52)
[2018-10-28] MEDS: LISINOPRIL (5MG) 5 MG TABLET PO SCH (08:17)
[2018-10-28] MEDS: DULOXETINE HCL 30 MG CAPSULE.DR PO SCH ×3 (08:17→08:59)
[2018-10-28] MEDS: ASPIRIN EC 81 MG TABLET.DR PO SCH (08:17)
[2018-10-28] MEDS: GABAPENTIN 300 MG CAPSULE PO SCH ×2 (08:18→20:41)
[2018-10-28] MEDS: IV NS 0.9% 1,000 ML IV PRN (08:55)
[2018-10-28 09:01] LABS: BAND % (MANUAL) 1 % (0.0-5.0); EOSINOPHILS % (MANUAL) 3 % (0-4); LYMPHOCYTES % (MANUAL) 29 % (16-48); MONOCYTES % (MANUAL) 6 % (0-11.0); NEUTROPHILS % (MANUAL) 61 (42-76)
[2018-10-28 16:00] VITALS: BP 155/81
[2018-10-28] MEDS: RIVAROXABAN 10 MG TABLET PO SCH (16:54)
--- NOTE | 2018-10-28 18:35 | NUR ---
MS RN CLOSING NOTES PT IS LYING ON BED.ALERT/ORIENTED X4.ON 2 L O2 VIA NC CONTINUOUSLY.NO SOB AND ACUTE DISTRESS NOTED.LEFT BKA NOTED.NO PAIN NOTED FOR NOW.IV LINE IS ON RIGHT HAND G24,SL.IV SITE IS CLEAN,DRY AND INTACT.NO INFILTRATION NOTED.ALL DUE MEDS ARE GIVEN.NO SIGNIFICANT CHANGES NOTED IN THE SHIFT.ENDORSED TO DIRECTOR CHANNEL RN FOR SUDHEER.
--- NOTE | 2018-10-28 19:55 | NUR ---
RN OPENING NOTES RECEIVED REPORT FROM CHRIS RN. PATIENT A/A/O X3, ABLE TO MAKE NEEDS KNOWN. BREATHING EVEN & UNLABORED, TOLERATING O2 @ 2LPM VIA NC. DENIES ANY SOB OR DIFFICULTY BREATHING. RADIAL PULSES PRESENT. RIGHT HAND IV #24 INTACT & PATENT W/ DRESSING CDI, SALINE LOCKED. C/O RIGHT SIDE HEAD PAIN 7/10 RADIATING DOWN TO NECK W/ BLURRED VISION IN RIGHT EYE, PAIN MED TO BE GIVEN. SAFETY MEASURES IN PLACE W/ SIDE RAILS UP & BED ALARM ON. INSTRUCTED TO USE CALL LIGHT FOR ASSISTANCE. WILL CONTINUE TO MONITOR.
[2018-10-28 20:00] VITALS: BP 141/81
[2018-10-29] MEDS: IPRATROPIUM NEB FS 0.5 MG/2.5 ML AMPUL.NEB HHN SCH ×3 (00:54→13:48)
--- NOTE | 2018-10-29 01:30 | NUR ---
MS RN NOTES Assume care of this patient. Will continue to monitor accordingly.
[2018-10-29 06:25] LABS: BASOPHILS # (AUTO) 0.1 /CMM (0.0-0.2); EOSINOPHILS % (AUTO) 1.7 % (0.0-6.0); HEMATOCRIT 41 % (39-51); HEMOGLOBIN 13.7 g/dL (13.5-17.5); LYMPHOCYTES # (AUTO) 1.8 /CMM (0.8-4.8); LYMPHOCYTES % (AUTO) 27.2 % (20.0-44.0); MEAN CORPUSCULAR HGB CONC 34 g/dl (31.0-36.0); MEAN CORPUSCULAR VOLUME 86 fL (80-96); MONOCYTES # (AUTO) 0.8 /CMM (0.1-1.30); MONOCYTES % (AUTO) 11.1 % (2.0-12.0); PLATELET COUNT (AUTO) 105 /CMM (150-450); RED BLOOD CELL COUNT(AUTO) 4.73 MIL/uL (4.5-6.0); WHITE BLOOD COUNT (AUTO) 6.8 K/uL (4.3-11.0)
--- NOTE | 2018-10-29 06:33 | NUR ---
MS RN CLOSING NOTES Patient asleep at this time. With patent peripheral IV line R hand G#24 SL. No new complaints made. All nursing needs attended. Kept clean, dry and comfortable. Bed in lowest position, siderails up, call light within easy reach. Endorsed to the next shift.
[2018-10-29 07:00] LABS: CALCIUM, SERUM 9.2 mg/dL (8.5-10.1); CREATININE 0.8 mg/dL (0.6-1.3); MAGNESIUM 1.9 mg/dL (1.8-2.4); PHOSPHORUS 3.1 mg/dL (2.5-4.9)
--- NOTE | 2018-10-29 07:00 | NUR ---
MS RN OPENING NOTES RECEIVED PT LYING ON BED.ALERT/ORIENTED X4.ON 2 L O2 VIA NC CONTINUOUSLY.NO SOB AND ACUTE DISTRESS NOTED.LEFT BKA NOTED.NO PAIN NOTED FOR NOW.IV LINE IS ON RIGHT HAND G24 SL.IV SITE IS CLEAN,DRY AND INTACT.NO INFILTRATION NOTED.SAFETY IS MAINTAINED AT ALL TIMES.BED IS IN LOW POSITION AND LOCKED,CALL LIGHT IS WITHIN REACH. WILL CONTINUE TO MONITOR THE PT CLOSELY.
[2018-10-29] MEDS: PANTOPRAZOLE 40 MG TABLET.DR PO SCH (07:45)
[2018-10-29 08:00] VITALS: BP 170/83
[2018-10-29] MEDS: ASPIRIN EC 81 MG TABLET.DR PO SCH (08:57)
[2018-10-29] MEDS: METOPROLOL TARTRATE 25 MG TABLET PO SCH (08:58)
[2018-10-29] MEDS: ATORVASTATIN 40 MG TABLET PO SCH (08:58)
[2018-10-29] MEDS: GABAPENTIN 300 MG CAPSULE PO SCH (08:58)
[2018-10-29] MEDS: ASCORBIC ACID 500 MG TABLET PO SCH (08:58)
[2018-10-29 08:59] VITALS: BP 170/83
[2018-10-29] MEDS: DULOXETINE HCL 30 MG CAPSULE.DR PO SCH (08:59)
[2018-10-29] MEDS: LISINOPRIL (5MG) 5 MG TABLET PO SCH (08:59)
[2018-10-29] MEDS: BACLOFEN (10 MG) 10 MG TABLET PO SCH ×2 (08:59→12:18)
[2018-10-29] MEDS: HYDROCODONE/APAP 5/325MG 1 EACH TABLET PO PRN (11:11)
[2018-10-29] MEDS ORDERED: METO25TA20 PO (12:07)
[2018-10-29] MEDS ORDERED: ENOX60DI SQ (14:12)
--- NOTE | 2018-10-29 15:00 | NUR ---
MS NON CLINICAL ADVISOR NOTES PT DISCHARGED TO HOME WITH FAMILY.ALL THE DISCHARGE MEDICATIONS AND FOLLOW UP APPOINTMENT WITH PCP HAS DISCUSSED WITH THE PT,VERBALIZED UNDERSTOOD.BELONGING LIST HAS SIGNED BY THE PT AND MADE SURE ALL THE BELONGING HAS TAKEN.SKIN ASSESSMENT HAS DONE AND IT IS INTACT.VITAL SIGNS ARE STABLE.ON ROOM AIR,TOLERATING WELL.NO SOB AND ACUTE DISTRESS NOTED.IV LINE FROM RIGHT HAND G24 IS REMOVED.NO BLEEDING NOTED.PT DISCHARGED TO HOME WITH JOSSELIN VIA WHEELCHAIR,FAMILY REFUSED TO HAVE ACCOMPANY TO THE PARKING LOT TO ASSIST PT.NO COMPLICATIONS NOTED.
[2018-10-29] MEDS ORDERED: ENOXAPARIN SODIUM 60 MG/0.6 ML DISP.SYRIN SQ SCH (18:00)
== END 2018-10-29 15:00 | disposition home or self-care (01) | DRG 281 ==
LOC: ER 14:42 → TELE1 17:00 → MEDSG1 10-26 07:44
PROVIDERS: ADMIT Internal Medicine; ATTEND Nurse Practitioner Acute Care
DX: I82.402 Acute embolism and thrombosis of unspecified deep veins of left lower extremity (principal); I21.A1 Myocardial infarction type 2; E44.0 Moderate protein-calorie malnutrition; R64 Cachexia; Z68.1 Body mass index [BMI] 19.9 or less, adult; J96.10 Chronic respiratory failure, unspecified whether with hypoxia or hypercapnia; I82.412 Acute embolism and thrombosis of left femoral vein; E78.5 Hyperlipidemia, unspecified; K21.9 Gastro-esophageal reflux disease without esophagitis; I10 Essential (primary) hypertension; J44.9 Chronic obstructive pulmonary disease, unspecified; Z99.81 Dependence on supplemental oxygen; Z99.3 Dependence on wheelchair; Z91.19 Patient's noncompliance with other medical treatment and regimen; Z86.718 Personal history of other venous thrombosis and embolism; Z86.711 Personal history of pulmonary embolism; Z85.46 Personal history of malignant neoplasm of prostate; Z79.82 Long term (current) use of aspirin; Z79.01 Long term (current) use of anticoagulants; M10.9 Gout, unspecified; B19.20 Unspecified viral hepatitis C without hepatic coma; Z79.899 Other long term (current) drug therapy; Z89.512 Acquired absence of left leg below knee; I73.9 Peripheral vascular disease, unspecified; I25.10 Atherosclerotic heart disease of native coronary artery without angina pectoris; M06.9 Rheumatoid arthritis, unspecified; G89.29 Other chronic pain; G43.909 Migraine, unspecified, not intractable, without status migrainosus; G62.9 Polyneuropathy, unspecified; I25.2 Old myocardial infarction; Z87.891 Personal history of nicotine dependence; Z79.51 Long term (current) use of inhaled steroids
CPT/HCPCS: 36415; 70450-TC; 71045-TC; 80048-TC; 80053-TC; 80061-TC; 80076-TC; 83735-TC; 84100-TC; 84484-TC; 85025-TC; 87081-TC; 93307-TC; 93970-TC; 94799-TC; A6402; G0378; J1200; J1885; J2270; J2765; J7030

== ENCOUNTER 2019-01-26 23:51 | Inpatient (IN) | payer MEDICARE, OTHER ==
[~2019-01-26] VITALS: Ht 180.3 cm; Wt 63.5 kg
[~2019-01-26 23:51] MED LIST changes: +ASCO500T9 PO; +ATOR40TA PO; +BACL10TA PO; +CARV3.122 PO; +DULO30CA2 PO; +ENOX60DI SQ; +GABA-534 PO; -Hydralazine Hcl PO; +LISI2.5T2 PO; +METO25TA20 PO; -PRED10TA PO; -PRED20TA GT; -PRED20TA PO; -PRED50TA PO; -RIVA10TA PO; -TAMS-12 PO
--- NOTE | 2019-01-27 00:09 | NUR ---
BIBFAMILY FROM HOME. TO ER BED 11. AAOX4. BREATHING SHALLOW AND RAPID. C/O CHEST PAIN STARTED @ 2130 SHARP NON RADIATING ON L CHEST. TOOK 1 NITRO RELIEVED PAIN NOW 09/01. PT ALSO C/O R SIDE HEAD PAIN AND R NECK PAIN. PT DENIES AND FALL OR TRAUMA. PT PLACED ON MONITOR. ON O2 VIA NC @ 2LPM. EKG AT BEDSIDE. AWAITING MD FOR EVAL AND ORDERS.
--- NOTE | 2019-01-27 00:26 | NUR ---
IV OBTAINED ON R HAND 20G. BLOOD DRAWN AND GIVEN TO RESERVOIR CARETAKER AT BEDSIDE
[2019-01-27 00:28] LABS: BASOPHILS # (AUTO) 0.1 /CMM (0.0-0.2); BASOPHILS % (AUTO) 1.1 % (0.0-2.0); EOSINOPHILS % (AUTO) 1.8 % (0.0-6.0); HEMATOCRIT 41 % (39-51); HEMOGLOBIN 13.8 g/dL (13.5-17.5); LYMPHOCYTES # (AUTO) 2.3 /CMM (0.8-4.8); LYMPHOCYTES % (AUTO) 33.3 % (20.0-44.0); MEAN CORPUSCULAR HGB CONC 34 g/dl (31.0-36.0); MEAN CORPUSCULAR VOLUME 86 fL (80-96); MONOCYTES # (AUTO) 0.8 /CMM (0.1-1.30); MONOCYTES % (AUTO) 12.1 % (2.0-12.0); NEUTROPHILS # (AUTO) 3.5 /CMM (1.8-8.9); NEUTROPHILS % (AUTO) 51.7 % (43.0-81.0); PLATELET COUNT (AUTO) 134 /CMM (150-450); RED BLOOD CELL COUNT(AUTO) 4.79 MIL/uL (4.5-6.0); WHITE BLOOD COUNT (AUTO) 6.9 K/uL (4.3-11.0)
[2019-01-27 00:37] LABS: CALCIUM, SERUM 8.6 mg/dL (8.5-10.1); CARBON DIOXIDE 31 mmol/L (21-32); CHLORIDE 106 mmol/L (98-107); GLUCOSE 105 mg/dL (74-106); POTASSIUM 3.8 mmol/L (3.5-5.1); SODIUM SERUM 144 mmol/L (136-145); UREA NITROGEN, BLOOD 20 mg/dL (7-18)
[2019-01-27 00:51] LABS: ALANINE AMINOTRANSFERASE 19 U/L (12-78); ALBUMIN 3.7 g/dL (3.4-5.0); ALKALINE PHOSPHATASE 104 U/L (46-116); ASPARTATE AMINOTRANSFERASE 19 U/L (15-37); B-TYPE NATRIURETIC PEPTIDE 317 PG/ML (0-125); BILIRUBIN,DIRECT 0.1 mg/dL (0.0-0.2); BILIRUBIN,TOTAL 0.4 mg/dL (0.2-1.0); TOTAL PROTEIN, SERUM 7.1 g/dL (6.4-8.2)
--- NOTE | 2019-01-27 02:32 | NUR ---
EPIC DIRECTOR OF COMPENSATION PAGED
--- NOTE | 2019-01-27 02:34 | NUR ---
CALLED NURSING SUP FOR TELE BED
--- NOTE | 2019-01-27 02:38 | NUR ---
DR. COX ON THE PHONE WITH RONIT BACA, DNP
--- NOTE | 2019-01-27 02:48 | NUR ---
REPORT GIVEN TO MARY MALCOLM FOR SUDHEER
[2019-01-27] MEDS ORDERED: ASPIRIN 81 MG TAB.CHEW ONE (02:51)
[2019-01-27] MEDS: ASPIRIN 81 MG TAB.CHEW PO SCH ×3 (02:56→08:12)
[2019-01-27 03:00] VITALS: BP 168/88
[2019-01-27] MEDS ORDERED: MAG HYDROX/AL HYDROX/SIMETH 30 ML UDC PO PRN (03:00)
[2019-01-27] MEDS ORDERED: MAGNESIUM HYDROXIDE 30 ML UDC PO PRN (03:00)
[2019-01-27] MEDS ORDERED: TEMAZEPAM 15 MG CAPSULE PO PRN (03:00)
[2019-01-27] MEDS ORDERED: ACETAMINOPHEN 325 MG TABLET PO PRN (03:00)
[2019-01-27] MEDS ORDERED: NITROGLYCERIN 0.4 MG/TAB BOTTLE SL ONE (03:00)
[2019-01-27] MEDS ORDERED: ONDANSETRON HCL/PF 4 MG/2 ML VIAL IVP PRN (03:00)
--- NOTE | 2019-01-27 03:06 | NUR ---
PT TRANSPORTED TO UNIT WITH EMT AND RN AT BEDSIDE W/ ACLS PROTOCOL. NAD NOTED DURING TRANSPORT.
[2019-01-27] MEDS: HYDROCODONE/APAP 5/325MG 1 EACH TABLET PO PRN ×3 (03:36→21:24)
--- NOTE | 2019-01-27 03:36 | NUR ---
RN NOTES ADMINISTERED NORCO 5/325 ORDERED AT PATIENT REQUEST FOR R SIDED HEAD AND NECK PAIN 04/03. VSS. WILL CONTINUE TO MONITOR.
[2019-01-27 04:00] VITALS: BP 153/76
--- NOTE | 2019-01-27 04:32 | NUR ---
MARY OPEN NOTES RECEIVED PATIENT AWAKE IN BED. A/OX4. NO SIGNS OF DISTRESS OR DISCOMFORT. BREATHING EVEN AND UNLABORED. ON 2LPM ON VIA NC. ATTACHED TO TELE MONITOR WITH SR 66 NOTED. PATIENT COMPLAIN OF R SIDE HEAD AND NECK PAIN 04/03. WILL ADMINISTER ORDERED PRN PAIN MEDS. ORIENTED PATIENT TO UNIT AND ROOM. SKIN INTACT. IV ACCESS IN R HAND, PATENT AND INTACT, NO SIGNS OF REDNESS OR INFILTRATION. BED IN LOW LOCKED POSITION WITH SIDE RAILS X2. CALL LIGHT WITHIN REACH. WILL CONTINUE TO MONITOR. Addendum: 01/27/19 at 0458 by LINDA DOMINGUEZ RN PATIENT WAS RECEIVED FROM [facility]. Addendum: 01/27/19 at 0525 by LINDA DOMINGUEZ RN ERROR: WRONG TIME DOCUMENTED. PATIENT ADMITTED AT 0300
[2019-01-27] MEDS: MORPHINE SULFATE INJ 2 MG/ML DISP.SYRIN IV PRN ×3 (04:39→19:43)
--- NOTE | 2019-01-27 04:39 | NUR ---
RN NOTES ADMINISTERED MORPHINE 4MG ORDERED AT PATIENT REQUEST FOR R SIDED HEAD AND NECK PAIN 04/03. VSS. WILL CONTINUE TO MONITOR.
--- NOTE | 2019-01-27 06:49 | NUR ---
RN CLOSING NOTES PATIENT RESTING IN BED, EASILY AROUSABLE. A/OX4. NO SIGNS OF DISTRESS OR DISCOMFORT. BREATHING EVEN AND UNLABORED. ON 2LPM O2 VIA NC. ON TELE MONITORING WITH SB 58 NOTED. IV ACCESS IN R HAND, PATENT AND INTACT, NO SIGNS OF REDNESS OR INFILTRATION. STATES PAIN IN R SIDE HEAD AND NECK 4/10 AND TOLERABLE AT THIS TIME. ALL NEEDS MET. NO SIGNIFICANT CHANGES THROUGH THE NIGHT. BED IN LOW LOCKED POSITION WITH SIDE RAILS X2. CALL LIGHT WITHIN REACH. WILL ENDORSE TO AM SHIFT FOR SUDHEER.
--- NOTE | 2019-01-27 07:10 | NUR ---
HOME CARE MANAGER RN OPENING NOTES Report received at bedside. Patient received in bed, sleeping comfortably, easily aroused. On continuous oxygen therapy via nasal cannula with no SOB/labored breathing noted. Not in any type of distress. Complained of headache. Informed patient will admin pain meds as soon as orders are checked. Patient verbalized understanding. Safety measures in place. Will continue to monitor and assess patient. Tele Monitor: SR 70
[2019-01-27 08:00] VITALS: BP 147/85
[2019-01-27] MEDS: PANTOPRAZOLE 40 MG TABLET.DR PO SCH (08:09)
[2019-01-27] MEDS ORDERED: APIX5TAB4 PO (08:35)
[2019-01-27] MEDS ORDERED: ALBUTEROL FS 2.5 MG/0.5 ML VIAL.NEB HHN PRN (11:00)
[2019-01-27] MEDS ORDERED: IPRATROPIUM NEB FS 0.5 MG/2.5 ML AMPUL.NEB HHN PRN (11:00)
[2019-01-27] MEDS: GABAPENTIN 300 MG CAPSULE PO SCH ×2 (11:20→20:00)
[2019-01-27] MEDS: ATORVASTATIN 40 MG TABLET PO SCH (11:20)
[2019-01-27 12:00] VITALS: BP 133/72
[2019-01-27 16:00] VITALS: BP 140/70
--- NOTE | 2019-01-27 16:04 | NUR ---
NURSING SUP ([facility]) IS AWARE AND STILL LOOKING FOR A NURSE.
[2019-01-27] MEDS: FLUTICASONE/VILANTEROL 1 EACH BLST.W.DEV IH SCH (17:08)
[2019-01-27] MEDS: LEVOFLOXACIN (500MG) 500 MG TABLET PO SCH (17:09)
[2019-01-27] MEDS: APIXABAN 5 MG TABLET PO SCH (17:09)
--- NOTE | 2019-01-27 17:41 | NUR ---
COFFEE SOMMELIER NOTES Spoke to Vineet from Radiology, CT will be done by tomorrow with assist of a nurse.
--- NOTE | 2019-01-27 18:53 | NUR ---
COMPLIANCE EXAMINER CLOSING NOTES Patient remained in bed, intermittently sleeping. Alert and oriented x4, verbally responsive. Complaints of neck pain and headache with slight help of pain mgmt. Remains on continuous oxygen therapy @2LPM via nasal cannula with no SOB/labored breathing noted. Not in any type of distress. No complaints of chest pain but complained of consistent headache. Armored Vehicle Officer aware and assessed the patient with orders of CT angio of heart w/ 3D image and XR of sinus. Dr. Turner assessed patient with new order of CT of Right temporal bone. All CT orders will be done tomorrow per radiology staff with assist of a nurse. Patient aware. All anticipated needs provided and met. Kept patient clean, dry and comfortable. Safety measures in place. Bed in lowest position with bed alarm on and call light within reach. Endorsed to oncoming shift nurse. Tele Monitor: SR [id number]
--- NOTE | 2019-01-27 19:30 | NUR ---
HALL TENDER NOTES CALLED RADIOLOGY REGARDING PT HEAD CT SCAN AND ANGIOGRAM HEART , PER RADIOLOGY THEY WILL DO IT IN AM.
[2019-01-27 20:00] VITALS: BP 150/83
--- NOTE | 2019-01-27 21:50 | NUR ---
WASHER MEAT NOTES RECEIVED PT ON BED. ON TELE MONITOR SR. ON NASAL CANNULA 2LPM NO RESPIRATORY DISTRESS NOTED. IV ACCESS ON RIGHT HAND G 20 SALINE LOCK, PATENT AND INTACT. BED ALARM ON. SIDE RAILS UP X3. HEAD OF BED ELEVATED. WILL MONITOR PT CLOSELY.
[2019-01-28] VITALS: BP 140/76
[2019-01-28 04:00] VITALS: BP 124/77
[2019-01-28] MEDS: MORPHINE SULFATE INJ 2 MG/ML DISP.SYRIN IV PRN ×2 (04:29→14:56)
[2019-01-28 06:40] LABS: BASOPHILS % (AUTO) 0.6 % (0.0-2.0); EOSINOPHILS % (AUTO) 2.1 % (0.0-6.0); HEMATOCRIT 39 % (39-51); LYMPHOCYTES # (AUTO) 1.5 /CMM (0.8-4.8); LYMPHOCYTES % (AUTO) 25.3 % (20.0-44.0); MEAN CORPUSCULAR HGB CONC 34 g/dl (31.0-36.0); MEAN CORPUSCULAR VOLUME 84 fL (80-96); MONOCYTES # (AUTO) 0.7 /CMM (0.1-1.30); MONOCYTES % (AUTO) 10.8 % (2.0-12.0); NEUTROPHILS # (AUTO) 3.7 /CMM (1.8-8.9); NEUTROPHILS % (AUTO) 61.2 % (43.0-81.0); PLATELET COUNT (AUTO) 108 /CMM (150-450); RED BLOOD CELL COUNT(AUTO) 4.58 MIL/uL (4.5-6.0); WHITE BLOOD COUNT (AUTO) 6.1 K/uL (4.3-11.0)
--- NOTE | 2019-01-28 07:02 | NUR ---
PORTAL ARCHITECT NOTES NO ACUTE CHANGES NOTED DURING THE SHIFT. NO RESPIRATORY DISTRESS NOTED. WILL ENDORSE TO THE AM NURSE FOR CONTINUITY OF CARE.
[2019-01-28 07:09] LABS: CALCIUM, SERUM 8.5 mg/dL (8.5-10.1); CREATININE 0.9 mg/dL (0.6-1.3); MAGNESIUM 1.7 mg/dL (1.8-2.4); PHOSPHORUS 3.7 mg/dL (2.5-4.9); POTASSIUM 3.7 mmol/L (3.5-5.1)
[2019-01-28 08:00] VITALS: BP 131/78
[2019-01-28] MEDS: GABAPENTIN 300 MG CAPSULE PO SCH ×2 (08:55→21:10)
[2019-01-28] MEDS: PANTOPRAZOLE 40 MG TABLET.DR PO SCH (08:55)
[2019-01-28] MEDS: ATORVASTATIN 40 MG TABLET PO SCH (08:55)
[2019-01-28] MEDS: ASPIRIN 81 MG TAB.CHEW PO SCH (08:55)
[2019-01-28] MEDS: FLUTICASONE/VILANTEROL 1 EACH BLST.W.DEV IH SCH (08:56)
[2019-01-28] MEDS: APIXABAN 5 MG TABLET PO SCH ×2 (08:59→17:13)
[2019-01-28] MEDS ORDERED: IOHEXOL-350 100 ML VIAL IV ONE (10:45)
[2019-01-28] MEDS ORDERED: IV NS 0.9% 250 ML IV ONE (10:46)
[2019-01-28] MEDS ORDERED: METOPROLOL TARTRATE INJ 5 MG/5 ML AMPUL ONE (10:46)
[2019-01-28] MEDS ORDERED: CT SWABBABLE VALVE TRANS SET 1 EA INFUS.SET MC ONE (10:46)
[2019-01-28] MEDS: HYDROCODONE/APAP 5/325MG 1 EACH TABLET PO PRN ×2 (10:59→21:15)
[2019-01-28] MEDS ORDERED: IV NS 0.9% 500 ML IV ONE (11:30)
[2019-01-28] MEDS ORDERED: METOPROLOL TARTRATE INJ 5 MG/5 ML AMPUL IVP ONE (11:30)
[2019-01-28] MEDS ORDERED: NITROGLYCERIN 0.4 MG/TAB BOTTLE SL ONE (11:30)
[2019-01-28 12:00] VITALS: BP 152/92
[2019-01-28] MEDS: Magnesium 1GM/D5W 100ML PREMIX 100 ML IV SCH ×2 (13:20→14:43)
[2019-01-28 16:00] VITALS: BP 136/78
[2019-01-28] MEDS: LEVOFLOXACIN (500MG) 500 MG TABLET PO SCH (17:12)
--- NOTE | 2019-01-28 19:05 | NUR ---
MS RN NOTE RECEIVED PT IN STABLE CONDITION A&O X4. NO SIGNS OF SOB OR DISTRESS, NO C/O PAIN. IV IN RICHARD IN PLACE. ALL CURRENT NEEDS ATTENDED TO. BED LOW, LOCKED, UPPER RAILS UP, AND CALL LIGHT WITHIN REACH. WILL CONT. TO MONITOR.
[2019-01-28 20:00] VITALS: BP 117/69
--- NOTE | 2019-01-28 23:47 | NUR ---
MS HERNANDEZ NOTE PRN NORCO 5-325 MG GIVEN FOR PAIN 5/10 IN R SIDE OF HEAD AND NECK. WILL CONT. TO MONITOR. Addendum: 01/28/19 at 3433 by LINCOLN GARCIA RN MEDICATION GIVEN AT 2035.
[2019-01-29 04:00] VITALS: BP 125/77
[2019-01-29] MEDS: MORPHINE SULFATE INJ 2 MG/ML DISP.SYRIN IV PRN ×3 (04:03→15:10)
--- NOTE | 2019-01-29 04:29 | NUR ---
MS RN NOTE PRN MORPHINE 4 MG IV GIVEN FOR PAIN 8/10 LOCATED IN R SIDE OF HEAD AND NECK. CURRENT VITALS STABLE. WILL CONT. TO MONITOR.
--- NOTE | 2019-01-29 06:15 | NUR ---
MS RN NOTE PT IN STABLE CONDITION A&O X4, CURRENTLY RESTING IN BED. NO SIGNS OF SOB OR DISTRESS, NO C/O PAIN. IV IN RICHARD IN PLACE. ALL CURRENT NEEDS ATTENDED TO. BED LOW, LOCKED, UPPER RAILS UP, AND CALL LIGHT WITHIN REACH. WILL CONT. TO MONITOR AND ENDORSE TO NEXT SHIFT FOR SUDHEER.
[2019-01-29 06:37] LABS: CALCIUM, SERUM 8.6 mg/dL (8.5-10.1); MAGNESIUM 2.3 mg/dL (1.8-2.4); POTASSIUM 4.2 mmol/L (3.5-5.1)
--- NOTE | 2019-01-29 07:30 | NUR ---
RN MS NOTES PT IN BED, ASLEEP, EASY TO AROUSE, ALERT AND ORIENTED, NO COMPLAINT OF PAIN AT THIS TIME, RESPIRATIONS NORMAL AND NOT LABORED, CALL LIGHT WITHIN REACH, KEPT COMFORTABLE AND HADOOP ENGINEER BED.
--- NOTE | 2019-01-29 07:30 | NUR ---
MARY MS NOTES PT AWAKE, ALERT AND ORIENTED, SITTING IN BED, NO COMPLAINT OF PAIN, NOT IN DISTRESS, ABLE TO AMBULATE TO THE BATHROOM WITH STEADY GAIT, CALL LIGHT WITHIN REACH, NEEDS ATTENDED. Addendum: 01/29/19 at 0904 by SARANYA CORREA RN PLS DISREGARD ABOVE NOTES, WRONG PT.
[2019-01-29 08:00] VITALS: BP 136/77
[2019-01-29] MEDS: ATORVASTATIN 40 MG TABLET PO SCH (08:33)
[2019-01-29] MEDS: FLUTICASONE/VILANTEROL 1 EACH BLST.W.DEV IH SCH (08:33)
[2019-01-29] MEDS: ASPIRIN 81 MG TAB.CHEW PO SCH (08:34)
[2019-01-29] MEDS: PANTOPRAZOLE 40 MG TABLET.DR PO SCH (08:34)
[2019-01-29] MEDS: GABAPENTIN 300 MG CAPSULE PO SCH (08:34)
[2019-01-29] MEDS: APIXABAN 5 MG TABLET PO SCH (08:41)
[2019-01-29] MEDS ORDERED: LEVO500T2 PO (14:42)
[2019-01-29] MEDS: LEVOFLOXACIN (500MG) 500 MG TABLET PO SCH (15:10)
--- NOTE | 2019-01-29 15:44 | NUR ---
RN MS NOTES PT IN BED, AWAKE, ALERT AND ORIENTED, SEEN BY DR. RAMSEY, DISCHARGE ORDER GIVEN, DISCHARGE AND MEDICATION INSTRUCTIONS PROVIDED TO PT, VERBALIZED UNDERSTANDING, PRESCRIPTION GIVEN TO PT, BELONGINGS ACCOUNTED FOR, PICKED UP BY SON, ASSISTED TO WHEELCHAIR, ASSISTED TO HOSPITAL LOBBY, LEFT VIA PRIVATE CAR IN STABLE CONDITION.
== END 2019-01-29 15:44 | disposition home health service (06) | DRG 303 ==
LOC: ER 23:52 → TELE1 01-27 02:38 → MEDSG1 01-28 10:20
PROVIDERS: ADMIT Hospitalist; ATTEND Hospitalist
DX: I25.10 Atherosclerotic heart disease of native coronary artery without angina pectoris (principal); J98.11 Atelectasis; I25.2 Old myocardial infarction; Z95.5 Presence of coronary angioplasty implant and graft; Z99.81 Dependence on supplemental oxygen; Z86.718 Personal history of other venous thrombosis and embolism; Z85.46 Personal history of malignant neoplasm of prostate; Z79.01 Long term (current) use of anticoagulants; J44.9 Chronic obstructive pulmonary disease, unspecified; J32.9 Chronic sinusitis, unspecified; H66.91 Otitis media, unspecified, right ear; R51 Headache; I10 Essential (primary) hypertension; I73.9 Peripheral vascular disease, unspecified; Z89.612 Acquired absence of left leg above knee; Z86.711 Personal history of pulmonary embolism; M10.9 Gout, unspecified; Z91.19 Patient's noncompliance with other medical treatment and regimen; Z86.19 Personal history of other infectious and parasitic diseases; D64.9 Anemia, unspecified; E78.5 Hyperlipidemia, unspecified; K21.9 Gastro-esophageal reflux disease without esophagitis; M06.9 Rheumatoid arthritis, unspecified; Z87.891 Personal history of nicotine dependence
CPT/HCPCS: 36415; 70220-TC; 70460-TC; 71045-TC; 75574; 80048-TC; 80061-TC; 80076-TC; 83735-TC; 83880; 84100-TC; 84484-TC; 85025-TC; 85730-TC; 87081-TC; G0378; J2270; J3475; J3490; J7050; Q9967

== ENCOUNTER 2019-08-27 12:56 | Inpatient (IN) | payer MEDICARE, OTHER ==
[~2019-08-27] VITALS: Ht 180.3 cm; Wt 62.3 kg
[~2019-08-27 12:56] MED LIST changes: +APIX5TAB4 PO; -ASCO500T9 PO; -ASPI-1152 PO; -BACL10TA PO; -CARV3.122 PO; -DULO30CA2 PO; -ENOX60DI SQ; +LEVO500T2 PO; -LISI2.5T2 PO; -METO25TA20 PO; -MULT-24 PO; -PANT40TA2 PO; -TIOT18CA3 IH
--- NOTE | 2019-08-27 13:10 | NUR ---
R UPPER BACK PAIN WHILE SITTING DOWN THIS MORNING. PATIENT A/OX4, BREATHING EVEN AND UNLABORED, NO SOB NOTED, NEEDS ATTENDED.
[2019-08-27] MEDS ORDERED: methylPREDNISolone SOD SUCC 125 MG/2ML VIAL ONE (13:16)
[2019-08-27] MEDS ORDERED: DIAZEPAM 5 MG TABLET ONE (13:17)
[2019-08-27 13:28] LABS: BASOPHILS # (AUTO) 0.4 /CMM (0.0-0.2); EOSINOPHILS % (AUTO) 2.1 % (0.0-6.0); HEMATOCRIT 44 % (39-51); HEMOGLOBIN 14.7 g/dL (13.5-17.5); LYMPHOCYTES # (AUTO) 1.3 /CMM (0.8-4.8); LYMPHOCYTES % (AUTO) 17.4 % (20.0-44.0); MEAN CORPUSCULAR HGB CONC 34 g/dl (31.0-36.0); MEAN CORPUSCULAR VOLUME 86 fL (80-96); MONOCYTES # (AUTO) 0.6 /CMM (0.1-1.30); MONOCYTES % (AUTO) 7.9 % (2.0-12.0); NEUTROPHILS # (AUTO) 4.9 /CMM (1.8-8.9); NEUTROPHILS % (AUTO) 67.6 % (43.0-81.0); PLATELET COUNT (AUTO) 107 /CMM (150-450); RED BLOOD CELL COUNT(AUTO) 5.13 MIL/uL (4.5-6.0); WHITE BLOOD COUNT (AUTO) 7.3 K/uL (4.3-11.0)
[2019-08-27] MEDS ORDERED: ALBUTEROL FS 2.5 MG/3 ML VIAL.NEB NEB ONE ×2 (13:30→16:30)
[2019-08-27] MEDS ORDERED: DIAZEPAM 10 MG TABLET PO ONE (13:30)
[2019-08-27] MEDS ORDERED: methylPREDNISolone SOD SUCC 125 MG/2ML VIAL IV ONE (13:30)
[2019-08-27] MEDS ORDERED: IPRATROPIUM NEB FS 0.5 MG/2.5 ML AMPUL.NEB NEB ONE ×2 (13:30→16:30)
[2019-08-27] MEDS ORDERED: DIAZEPAM 5 MG/ML 2 ML DISP.SYRIN IV ONE (13:30)
[2019-08-27 13:33] LABS: CALCIUM, SERUM 9.1 mg/dL (8.5-10.1); CARBON DIOXIDE 28 mmol/L (21-32); CHLORIDE 108 mmol/L (98-107); GLUCOSE 93 mg/dL (74-106); POTASSIUM 4.3 mmol/L (3.5-5.1); SODIUM SERUM 144 mmol/L (136-145); UREA NITROGEN, BLOOD 19 mg/dL (7-18)
[2019-08-27] MEDS ORDERED: ALPR1TAB7 PO (13:33)
[2019-08-27] MEDS ORDERED: ASPI-605 PO (13:33)
[2019-08-27] MEDS ORDERED: TIOT18CA3 IH (13:36)
[2019-08-27] MEDS ORDERED: FLUT1DIS3 IH (13:36)
[2019-08-27] MEDS ORDERED: ALBUTEROL FS 2.5 MG/3 ML VIAL.NEB ONE ×2 (13:37→16:33)
[2019-08-27] MEDS ORDERED: IPRATROPIUM NEB FS 0.5 MG/2.5 ML AMPUL.NEB ONE ×2 (13:37→16:33)
[2019-08-27 13:45] LABS: ALANINE AMINOTRANSFERASE 22 U/L (12-78); ALBUMIN 3.8 g/dL (3.4-5.0); ALKALINE PHOSPHATASE 126 U/L (46-116); ASPARTATE AMINOTRANSFERASE 22 U/L (15-37); B-TYPE NATRIURETIC PEPTIDE 169 PG/ML (0-125); BILIRUBIN,DIRECT 0.1 mg/dL (0.0-0.2); BILIRUBIN,TOTAL 0.6 mg/dL (0.2-1.0); TOTAL PROTEIN, SERUM 7.1 g/dL (6.4-8.2)
[2019-08-27] MEDS ORDERED: IV NS 0.9% 250 ML IV ONE (14:09)
[2019-08-27] MEDS ORDERED: CT SWABBABLE VALVE TRANS SET 1 EA INFUS.SET MC ONE (14:09)
[2019-08-27] MEDS ORDERED: IOHEXOL-350 100 ML VIAL IV ONE (14:09)
--- NOTE | 2019-08-27 14:39 | NUR ---
patient came back from ct, seen by dr. cortez.
[2019-08-27] MEDS ORDERED: KETOROLAC TROMETHAMINE 15 MG/ML VIAL ONE (14:41)
[2019-08-27] MEDS ORDERED: KETOROLAC TROMETHAMINE INJ 30 MG/ML VIAL IV ONE (15:00)
--- NOTE | 2019-08-27 16:00 | NUR ---
PAGED [facility].
[2019-08-27] MEDS ORDERED: CEFTRIAXONE 1GM BAG (ER ONLY) 50 ML IV ONE (16:27)
[2019-08-27] MEDS ORDERED: ENOXAPARIN SODIUM 60 MG/0.6 ML DISP.SYRIN SQ ONE (16:30)
[2019-08-27] MEDS ORDERED: FENTANYL PF 100MCG/2ML AMPUL IV ONE (16:30)
[2019-08-27] MEDS ORDERED: IV NS 0.9% 1,000 ML BAG IV ONE (16:30)
[2019-08-27] MEDS ORDERED: AZITHROMYCIN 500 MG in IV D5W 250 ML IV ONE (16:30)
[2019-08-27] MEDS ORDERED: CEFTRIAXONE 1 G in IV D5W 50 ML IV ONE (16:31)
--- NOTE | 2019-08-27 16:31 | NUR ---
CALLED NURSING SUP FOR TELE BED.
[2019-08-27] MEDS ORDERED: FENTANYL PF 100MCG/2ML AMPUL ONE (16:36)
[2019-08-27] MEDS ORDERED: ONDANSETRON HCL/PF 4 MG/2 ML VIAL IVP PRN (17:00)
[2019-08-27] MEDS ORDERED: ACETAMINOPHEN 325 MG TABLET PO PRN (17:00)
[2019-08-27] MEDS ORDERED: TEMAZEPAM 15 MG CAPSULE PO PRN (17:00)
[2019-08-27] MEDS ORDERED: MAG HYDROX/AL HYDROX/SIMETH 30 ML UDC PO PRN (17:00)
[2019-08-27] MEDS ORDERED: Z GUARD REMEDY 2 OZ OINT TP PRN (17:00)
[2019-08-27] MEDS ORDERED: MAGNESIUM HYDROXIDE 30 ML UDC PO PRN (17:00)
[2019-08-27] MEDS ORDERED: ALBUTEROL FS 2.5 MG/0.5 ML VIAL.NEB NEB PRN (17:30)
[2019-08-27] MEDS ORDERED: LORAZEPAM INJ 2 MG/ML VIAL IV PRN (17:30)
--- NOTE | 2019-08-27 17:58 | NUR ---
NURSING SUP GAVE 116-1.
[2019-08-27] MEDS ORDERED: CLONIDINE HCL 0.1 MG TABLET PO ONE (18:00)
--- NOTE | 2019-08-27 18:17 | NUR ---
REPORT GIVEN TO TANISHA HERNANDEZ.
--- NOTE | 2019-08-27 18:29 | NUR ---
PATIENT TRANSFERRED TO ROOM 116-1 VIA ACLS PROTOCOL. NO DISTRESS NOTED. VSS.
--- NOTE | 2019-08-27 18:53 | NUR ---
RECEIVED PATIENT IN STABLE CONDITION FROM ER. PT PLACED ON 2L OXYGEN, SATURATION IS 97%. VITAL SIGNS ARE STABLE FOLLOWED, T: 97.4, PULSE-66, RR: 18 BP: 118/75. PATIENT WAS BROUGHT IN VIA GURNEY, BELONGING LIST IS DONE BY THE FIELD OPERATOR, PLACED IN ROOM 116-1. WILL ENDORSE TO PM NURSE TO START THE ADMISSION PACKED. PATIENT SAFETY MAINTAINED, CALL LIGHT WITHIN REACH.
--- NOTE | 2019-08-27 19:15 | NUR ---
RN OPENING NOTES RECEIVED PT ON BED AWAKE A/O X4 CONVERSING, WITH 02 VIA NC @ 2L TOLERATED WELL NO SIGN AND SYMPTOMS OF RESPIRATORY DISTRESS O2 SAT @ 98 %, VITAL CHECKED WITH BP 120/70 HR 74 RR 22 TEMP 98.3, PT COMPLAIN OF PAIN ON RIGHT SHOULDER AND BACK PRN PAIN MEDS GIVEN ORDERED. PT IS POSITIVE ON PULMONARY EMBOLISM VIA CT SCAN.PUT TO TELE MONITOR WITH READING SR 70'S. ADMISSION ASSESSMENT DONE. WITH IV LINE ON RFA #20 PATENT NO SWELLING NOTED STARTED 1L NS @ 75ML/HR INFUSING WELL. SAFETY MEASURE OBSERVED BED AT LOWEST POSITION AND LOCKED SIDERAILS UP X2 CALL LIGHT WITHIN REACH WILL CONT. TO MONITOR THE PT
[2019-08-27] MEDS: MORPHINE SULFATE INJ 2 MG/ML DISP.SYRIN IV PRN ×2 (19:38→23:49)
[2019-08-27 20:00] VITALS: BP 120/70
[2019-08-27] MEDS: IV NS 0.9% 1,000 ML IV PRN (20:44)
[2019-08-28] VITALS: BP 100/59
[2019-08-28 04:00] VITALS: BP 110/69
[2019-08-28] MEDS ORDERED: ENOXAPARIN SODIUM 60 MG/0.6 ML DISP.SYRIN SQ SCH (06:00)
[2019-08-28] MEDS: MORPHINE SULFATE INJ 2 MG/ML DISP.SYRIN IV PRN ×3 (06:21→16:35)
[2019-08-28 06:55] LABS: BASOPHILS % (AUTO) 0.1 % (0.0-2.0); HEMATOCRIT 37 % (39-51); HEMOGLOBIN 12.3 g/dL (13.5-17.5); LYMPHOCYTES # (AUTO) 0.8 /CMM (0.8-4.8); LYMPHOCYTES % (AUTO) 12.4 % (20.0-44.0); MEAN CORPUSCULAR HGB CONC 33 g/dl (31.0-36.0); MEAN CORPUSCULAR VOLUME 84 fL (80-96); MONOCYTES # (AUTO) 0.3 /CMM (0.1-1.30); MONOCYTES % (AUTO) 5.3 % (2.0-12.0); NEUTROPHILS # (AUTO) 5.4 /CMM (1.8-8.9); NEUTROPHILS % (AUTO) 82.2 % (43.0-81.0); PLATELET COUNT (AUTO) 88 /CMM (150-450); RED BLOOD CELL COUNT(AUTO) 4.38 MIL/uL (4.5-6.0); WHITE BLOOD COUNT (AUTO) 6.6 K/uL (4.3-11.0)
--- NOTE | 2019-08-28 07:22 | NUR ---
SALES ADMINISTRATION SPECIALIST OPENING NOTE RECEIVED BEDSIDE REPORT. PT AWAKE IN BED, ALERT AND ORIENTED X 4, ON 02 VIA NC 2L/MIN, SATURATING WELL, RESPIRATIONS EVEN AND UNLABORED, NO SIGNS OF RESPIRATORY DISTRESS NOTED. SINUS RHYTHM ON SINUS MONITOR. IV SITE ON RIGHT FOREARM G20 INTACT, PATENT, NS INFUSING AT 75CC/HR, NO SIGNS OF INFILTRATION NOTED. BED IN LOW POSITION, LOCKED, CALL LIGHT WITHIN REACH.
[2019-08-28 07:33] LABS: CALCIUM, SERUM 8.2 mg/dL (8.5-10.1); CREATININE 0.9 mg/dL (0.6-1.3); MAGNESIUM 1.9 mg/dL (1.8-2.4); PHOSPHORUS 2.9 mg/dL (2.5-4.9); POTASSIUM 4.4 mmol/L (3.5-5.1)
--- NOTE | 2019-08-28 07:45 | NUR ---
RN CLOSING NOTES PT ON STABLE CONDITION NO SIGN AND SYMPTOMS OF RESPIRATORY DISTRESS, PT WAS AWAKE A/OX4 STILL COMPLAINING OF MILD PAIN ON HER R SHOULDER, WITH ONGOING NS @ 75ML/HR VIA IV G20 ON RFA INFUSING WELL, ON TELE MONITOR SR 80'S, SAFETY MEASURE MAINTAINED BED ON LOWEST POSITION SIDE RAILS UP X 2. CALL LIGHT WITHIN REACH ENDORSED O AM SHIFT NURSE
[2019-08-28 08:00] VITALS: BP 125/70
[2019-08-28] MEDS: ATORVASTATIN 40 MG TABLET PO SCH (08:05)
[2019-08-28] MEDS: ASPIRIN EC 81 MG TABLET.DR PO SCH (08:15)
[2019-08-28] MEDS: FLUTICASONE/VILANTEROL 1 EACH BLST.W.DEV IH SCH (08:16)
[2019-08-28] MEDS ORDERED: TIOTROPIUM BROMIDE 6 CAP/BOX CAP.W.DEV IH SCH (09:00)
[2019-08-28] MEDS ORDERED: FLUTICASONE/SALMETEROL 1 DISK IH SCH (09:00)
[2019-08-28] MEDS: IV NS 0.9% 1,000 ML IV PRN (11:48)
[2019-08-28 12:00] VITALS: BP 123/68
[2019-08-28] MEDS: HYDROCODONE/APAP 5/325MG 1 EACH TABLET PO PRN ×2 (13:04→19:46)
[2019-08-28 16:00] VITALS: BP 115/76
[2019-08-28] MEDS: APIXABAN 2.5 MG TABLET PO SCH (16:34)
--- NOTE | 2019-08-28 19:15 | NUR ---
RN OPENING NOTES: PATIENT IN BED, AWAKE, VERBALLY RESPONSIVE. NO RESPIRATORY DISTRESS. ON 2LPM VIA NC, TOLERATING WELL. IV ACCESS RIGHT FA G20 C/D/I, FLUSHING WELL, RUNNING NS AT 75 MLS/HR. SAFETY PRECAUTIONS IMPLEMENTED. BED LOCKED, ALARM ON, LOW POSITION. HOB ELEVATED. CALL LIGHT PLACED WITHIN REACH. WILL CONT. TO MONITOR.
[2019-08-28 20:00] VITALS: BP 137/76
[2019-08-29] VITALS: BP 146/75
[2019-08-29] MEDS: IV NS 0.9% 1,000 ML IV PRN ×2 (02:15→14:28)
[2019-08-29] MEDS: MORPHINE SULFATE INJ 2 MG/ML DISP.SYRIN IV PRN ×3 (02:34→15:41)
[2019-08-29 04:00] VITALS: BP 140/74
--- NOTE | 2019-08-29 06:30 | NUR ---
RN CLOSING NOTES: PATIENT IN BED, AWAKE, VERBALLY RESPONSIVE. NO RESPIRATORY DISTRESS. ON 2LPM VIA NC, TOLERATING WELL. IV ACCESS RIGHT FA G20 C/D/I, FLUSHING WELL, RUNNING NS AT 75 MLS/HR. OFFERED BED BATH BUT PATIENT DECLINED. PER PATIENT, HE WILL USE WET TOWELS TO CLEAN HIMSELF LATER IN THE AM. SAFETY PRECAUTIONS IMPLEMENTED. BED LOCKED, ALARM ON, LOW POSITION. HOB ELEVATED. CALL LIGHT PLACED WITHIN REACH. WILL ENDORSE TO AM SHIFT NURSE FOR CONTINUITY OF CARE.
[2019-08-29 06:58] LABS: BASOPHILS % (AUTO) 0.4 % (0.0-2.0); HEMATOCRIT 36 % (39-51); HEMOGLOBIN 12.1 g/dL (13.5-17.5); LYMPHOCYTES # (AUTO) 1.5 /CMM (0.8-4.8); LYMPHOCYTES % (AUTO) 28.4 % (20.0-44.0); MEAN CORPUSCULAR HGB CONC 34 g/dl (31.0-36.0); MEAN CORPUSCULAR VOLUME 85 fL (80-96); MONOCYTES # (AUTO) 0.5 /CMM (0.1-1.30); MONOCYTES % (AUTO) 9.1 % (2.0-12.0); NEUTROPHILS # (AUTO) 3.3 /CMM (1.8-8.9); NEUTROPHILS % (AUTO) 61.1 % (43.0-81.0); PLATELET COUNT (AUTO) 75 /CMM (150-450); RED BLOOD CELL COUNT(AUTO) 4.22 MIL/uL (4.5-6.0); WHITE BLOOD COUNT (AUTO) 5.4 K/uL (4.3-11.0)
[2019-08-29 07:20] LABS: CALCIUM, SERUM 7.8 mg/dL (8.5-10.1); POTASSIUM 4.3 mmol/L (3.5-5.1)
[2019-08-29 08:00] VITALS: BP 140/79
[2019-08-29 09:04] LABS: BAND % (MANUAL) 2 % (0.0-5.0); LYMPHOCYTES % (MANUAL) 33 % (16-48); MONOCYTES % (MANUAL) 12 % (0-11.0); NEUTROPHILS % (MANUAL) 53 (42-76)
[2019-08-29] MEDS: APIXABAN 2.5 MG TABLET PO SCH ×2 (09:17→17:13)
[2019-08-29] MEDS: ATORVASTATIN 40 MG TABLET PO SCH (09:17)
[2019-08-29] MEDS: ASPIRIN EC 81 MG TABLET.DR PO SCH (09:17)
[2019-08-29] MEDS: FLUTICASONE/VILANTEROL 1 EACH BLST.W.DEV IH SCH (09:17)
[2019-08-29] MEDS: HYDROCODONE/APAP 5/325MG 1 EACH TABLET PO PRN ×2 (09:21→23:03)
[2019-08-29] MEDS: VALSARTAN 80 MG TABLET PO SCH (09:56)
--- NOTE | 2019-08-29 15:13 | NUR ---
Left message with [facility] for Doctor Hooper. Patient complaint of chest pain. Celestino Bernstein RN Addendum: 08/29/19 at 1514 by CELESTINO NUNEZ RN MD Rajesh
--- NOTE | 2019-08-29 15:32 | NUR ---
Spoke with Doctor Bret agrees with morphine for chest pain. Defers further treatments to Doctor Rajesh. Celestino Bernstein RN
[2019-08-29 16:00] VITALS: BP 148/80
[2019-08-29 16:06] VITALS: BP 148/80
--- NOTE | 2019-08-29 18:06 | NUR ---
Patient chest pain resolves with morphine per his report. Says "It's a lot better." Will continue to monitor sinus rhythm and endorse to night team. Celestino Bernstein RN
--- NOTE | 2019-08-29 19:15 | NUR ---
Handoff with night team RN, Padmini. Celestino Bernstein
--- NOTE | 2019-08-29 19:30 | NUR ---
RN OPENING NOTES: Received pt in bed, asleep easily arousable A&Ox4. On 2L/min NC tolerating well. No acute distress noted. Breathing even and unlabored. Pt ambulatory w/ walker assist. Noted w/ Left AKA. Has IV site on right forearm #20 w/ NS running at 75cc/hr. Line flushed and patent, dressing c/d/i. Safety measures in place. Bed in lowest and locked position, side rails up x1, call light w/in reach. Will continue to monitor.
[2019-08-29 20:00] VITALS: BP 120/87
[2019-08-30 04:00] VITALS: BP 160/83
[2019-08-30] MEDS: IV NS 0.9% 1,000 ML IV PRN ×2 (06:15→19:17)
--- NOTE | 2019-08-30 07:05 | NUR ---
RN CLOSING NOTES: Pt resting in bed, on 2L/min NC tolerating well. NO respiratory distress noted. No acute changes noted during shift. IV site on right FA patent and flushing. NS running at 75cc/hr. PRN pain medication given as ordered. Safety measures in place. Bed in lowest and locked position, side rails up x2, call lgiht w/in reach. Will endorse to AM nurse for SUDHEER.
[2019-08-30 08:00] VITALS: BP 151/82
[2019-08-30] MEDS: FLUTICASONE/VILANTEROL 1 EACH BLST.W.DEV IH SCH (08:05)
[2019-08-30] MEDS: ATORVASTATIN 40 MG TABLET PO SCH (08:06)
[2019-08-30] MEDS: ASPIRIN EC 81 MG TABLET.DR PO SCH (08:06)
[2019-08-30] MEDS: VALSARTAN 80 MG TABLET PO SCH (08:06)
[2019-08-30] MEDS: MORPHINE SULFATE INJ 2 MG/ML DISP.SYRIN IV PRN ×2 (08:07→21:10)
[2019-08-30] MEDS: APIXABAN 2.5 MG TABLET PO SCH ×2 (08:07→18:07)
[2019-08-30] MEDS ORDERED: BISACODYL (5 MG) 5 MG TABLET.DR PO PRN (10:30)
[2019-08-30] MEDS ORDERED: POLYETHYLENE GLYCOL 3350 17 GM POWD.PACK PO PRN (10:30)
[2019-08-30] MEDS ORDERED: BISACODYL SUPP (10 MG) 10 MG/SUPP.RECT SUPP.RECT RC PRN (10:30)
[2019-08-30 12:00] VITALS: BP 151/88
[2019-08-30 16:00] VITALS: BP 134/75
--- NOTE | 2019-08-30 19:25 | NUR ---
RN PM OPENING NOTES: IRISDSIDE REPORT RECIEVED FROM ENDER HERNANDEZ. pt in bed, easily arousable A&Ox4. On 2L/min NCNo acute distress noted. Breathing even and unlabored. PER REPORT Pt ambulatory w/ walker assist. Noted w/ Left AKA. Has IV site on right HAND #20 w/ NS running at 75cc/hr. Line patent WITH NO S/S OF INFILTRATION, dressing c/d/i. Safety measures in place. Bed in lowest and locked position, side rails up x2, call light w/in reach. Will continue to monitor.
[2019-08-30 20:00] VITALS: BP 124/82
[2019-08-31] MEDS: MORPHINE SULFATE INJ 2 MG/ML DISP.SYRIN IV PRN (01:23)
[2019-08-31 04:00] VITALS: BP 130/80
[2019-08-31 08:00] VITALS: BP 136/88
[2019-08-31 08:13] VITALS: BP 136/88
[2019-08-31] MEDS: ATORVASTATIN 40 MG TABLET PO SCH (08:13)
[2019-08-31] MEDS: ASPIRIN EC 81 MG TABLET.DR PO SCH (08:13)
[2019-08-31] MEDS: VALSARTAN 80 MG TABLET PO SCH (08:13)
[2019-08-31] MEDS: APIXABAN 2.5 MG TABLET PO SCH (08:16)
[2019-08-31] MEDS: FLUTICASONE/VILANTEROL 1 EACH BLST.W.DEV IH SCH (08:16)
--- NOTE | 2019-08-31 11:40 | NUR ---
PAtient cleared for D/C to home by . PAtient awake and oriented x4. Breathing unlabored and even on room air saturating above 95%. VS are stable and within baseline. Patient received d/c instructions and educated on new prescribed meds; patient verbalized understanding sigh effects and benefits. Patient will f/u with PCP in one week.Skin is intact . Patient sighed d/c instructions and valuable form and all belongings with the patient including own wheelchair. IV line removed and ID wrist band removed. Patient picked up by daughter and safely [facility] to [facility].
== END 2019-08-31 11:40 | disposition home or self-care (01) | DRG 175 ==
LOC: ER 13:08 → TELE1 18:04 → MEDSG1 08-29 16:02
PROVIDERS: ADMIT Nurse Practitioner Acute Care; ATTEND Internal Medicine
DX: I26.99 Other pulmonary embolism without acute cor pulmonale (principal); J96.21 Acute and chronic respiratory failure with hypoxia; J98.11 Atelectasis; I10 Essential (primary) hypertension; B19.20 Unspecified viral hepatitis C without hepatic coma; J44.9 Chronic obstructive pulmonary disease, unspecified; I25.10 Atherosclerotic heart disease of native coronary artery without angina pectoris; E78.5 Hyperlipidemia, unspecified; E78.00 Pure hypercholesterolemia, unspecified; I25.2 Old myocardial infarction; G89.4 Chronic pain syndrome; Z85.46 Personal history of malignant neoplasm of prostate; Z79.82 Long term (current) use of aspirin; Z79.01 Long term (current) use of anticoagulants; M06.9 Rheumatoid arthritis, unspecified; Z99.81 Dependence on supplemental oxygen; Z95.5 Presence of coronary angioplasty implant and graft; Z91.19 Patient's noncompliance with other medical treatment and regimen; Z89.612 Acquired absence of left leg above knee; M10.9 Gout, unspecified; Z87.891 Personal history of nicotine dependence; Z86.718 Personal history of other venous thrombosis and embolism; Z86.711 Personal history of pulmonary embolism; I73.9 Peripheral vascular disease, unspecified; Z79.899 Other long term (current) drug therapy; Z86.19 Personal history of other infectious and parasitic diseases
CPT/HCPCS: 36415; 71045-TC; 80048-TC; 80061-TC; 80076-TC; 83735-TC; 83880; 84100-TC; 84484-TC; 85025-TC; 87081-TC; 93307-TC; 97116-TC; 97530-TC; G0378; J0456; J0696; J1650; J1885; J2270; J2930; J3010; J7030; J7050; J7060; Q9967

== ENCOUNTER 2020-03-21 11:05 | Inpatient (IN) | payer MEDICARE, OTHER ==
[~2020-03-21] VITALS: Ht 180.3 cm; Wt 60.8 kg
[~2020-03-21 11:05] MED LIST changes: -ALBU2.5V13 HHN; +ALPR1TAB7 PO; -APIX5TAB4 PO; +ASPI-605 PO; +FLUT1DIS3 IH; -HYDR-4354 PO; -IPRA0.2S9 HHN; -LEVO500T2 PO; +TIOT18CA3 IH
--- NOTE | 2020-03-21 11:40 | NUR ---
BIBDAUGHTER FROM HOME TO ER BED 6. AAOX4. NOT IN RESP DISTRESS, BREATHING EVEN AND UNLABORED. AMBULATES WITH A WHEELCHAIR. BROUGHT IN FOR C/O L SIDED CHEST PAIN SINCE YESTERDAY EVENING PULSATING IN SENSATION 5/10 INTERMITENT NON RADIATING. PT IS PLACED ON MONITOR. AWAITING MD FOR EVAL. IV LINE ESTABLISHED ON R HAND 20G. BLOOD DRAWN AND GIVEN TO CLARIFIER. PT IS ON MONITOR
[2020-03-21 11:55] LABS: BASOPHILS % (AUTO) 0.7 % (0.0-2.0); EOSINOPHILS % (AUTO) 1.3 % (0.0-6.0); HEMATOCRIT 46 % (39-51); HEMOGLOBIN 15.2 g/dL (13.5-17.5); LYMPHOCYTES # (AUTO) 1.5 /CMM (0.8-4.8); LYMPHOCYTES % (AUTO) 25.7 % (20.0-44.0); MEAN CORPUSCULAR HGB CONC 33 g/dl (31.0-36.0); MEAN CORPUSCULAR VOLUME 87 fL (80-96); MONOCYTES # (AUTO) 0.5 /CMM (0.1-1.30); MONOCYTES % (AUTO) 8.6 % (2.0-12.0); NEUTROPHILS # (AUTO) 3.8 /CMM (1.8-8.9); NEUTROPHILS % (AUTO) 63.7 % (43.0-81.0); PLATELET COUNT (AUTO) 133 /CMM (150-450); RED BLOOD CELL COUNT(AUTO) 5.28 MIL/uL (4.5-6.0)
[2020-03-21] MEDS ORDERED: KETOROLAC TROMETHAMINE 15 MG/ML VIAL ONE (12:16)
[2020-03-21 12:24] LABS: CALCIUM, SERUM 9.1 mg/dL (8.5-10.1); CARBON DIOXIDE 28 mmol/L (21-32); CHLORIDE 104 mmol/L (98-107); CREATININE 0.9 mg/dL (0.6-1.3); GLUCOSE 108 mg/dL (74-106); POTASSIUM 3.8 mmol/L (3.5-5.1); SODIUM SERUM 142 mmol/L (136-145); UREA NITROGEN, BLOOD 15 mg/dL (7-18)
[2020-03-21] MEDS ORDERED: KETOROLAC TROMETHAMINE INJ 30 MG/ML VIAL IV ONE (12:30)
[2020-03-21 12:36] LABS: ALANINE AMINOTRANSFERASE 15 U/L (12-78); ALBUMIN 4.1 g/dL (3.4-5.0); ALKALINE PHOSPHATASE 114 U/L (46-116); ASPARTATE AMINOTRANSFERASE 16 U/L (15-37); B-TYPE NATRIURETIC PEPTIDE 245 PG/ML (0-125); BILIRUBIN,DIRECT 0.2 mg/dL (0.0-0.2); TOTAL PROTEIN, SERUM 7.5 g/dL (6.4-8.2)
[2020-03-21] MEDS ORDERED: KETOROLAC TROMETHAMINE INJ 30 MG/ML VIAL IV PRN ×2 (13:00→17:00)
[2020-03-21] MEDS ORDERED: ALPRAZOLAM 1 MG TABLET PO PRN (13:00)
[2020-03-21] MEDS ORDERED: Z GUARD REMEDY 2 OZ OINT TP PRN (13:00)
[2020-03-21] MEDS ORDERED: MAG HYDROX/AL HYDROX/SIMETH 30 ML UDC PO PRN (13:00)
[2020-03-21] MEDS ORDERED: ZOLPIDEM TARTRATE 5 MG TABLET PO PRN (13:00)
[2020-03-21] MEDS ORDERED: MAGNESIUM HYDROXIDE 30 ML UDC PO PRN (13:00)
[2020-03-21] MEDS ORDERED: ACETAMINOPHEN 325 MG TABLET PO PRN (13:00)
[2020-03-21] MEDS ORDERED: ONDANSETRON HCL/PF 4 MG/2 ML VIAL IVP PRN (13:00)
[2020-03-21] MEDS ORDERED: HYDR-3980 PO (14:21)
[2020-03-21] MEDS ORDERED: APIX5TAB PO (14:21)
--- NOTE | 2020-03-21 14:34 | NUR ---
BED 306-2
--- NOTE | 2020-03-21 14:55 | NUR ---
REPORT GIVEN TO MARY AMOS FOR SUDHEER
--- NOTE | 2020-03-21 15:15 | NUR ---
PT TRANSPORTED TO UNIT ON GURNEY WITH EMT AND RN AT BEDSIDE W/ ACLS PROTOCOL. NAD NOTED DURING TRANSPORT. ALL BELONGINGS WAS WITH PT GOING UP
--- NOTE | 2020-03-21 15:15 | NUR ---
RN ADMITTING NOTES ADMITTED A 69 Y/O MALE TO UNIT VIA GURNEY ACCOMPANIED BY 2 ER STAFF. A/O X4. ABLE TO MAKE NEEDS KNOWN. NO SIGNS OF DISTRESS NOTED AT THIS TIME. V/S TAKEN AND RECORDED. PATIENT ORIENTED TO ROOM, UNIT AND STAFF. IV ACCESS ON RIGHT HAND #20, PATENT AND INTACT. PHYSICAL ASSESSMENT DONE, PICTURES FILED ON CHART. SAFETY MEASURES INITIATED, BED IN LOWEST LOCKED POSITION WITH SIDE RAILS UP X2. CALL LIGHT WITHIN REACH. WILL CONTINUE TO MONITOR.
--- NOTE | 2020-03-21 15:40 | NUR ---
RN NOTES FLUTICASONE NOT AVAILABLE, CALLED PHARMACY, THEY SAID THEY WILL SEND IT UP. WILL F/U.
[2020-03-21 16:00] VITALS: BP 153/90
[2020-03-21] MEDS: MORPHINE SULFATE INJ 2 MG/ML DISP.SYRIN IV PRN ×2 (16:03→20:58)
[2020-03-21] MEDS ORDERED: FLUTICASONE/SALMETEROL 1 DISK IH SCH (17:00)
--- NOTE | 2020-03-21 17:00 | NUR ---
RN NOTES PATIENT VTE SCORE OF 4, MD MADE AWARE, ORDER TO CONTINUE HOME MED OF ELIQUIS OF 5MG, FAX TO PHARMACY, SPOKE TO PHARMACY ([facility]) TO CONFIRM, RECEIVED AND THEY ARE WORKING ON IT. WILL CONTINUE TO MONITOR.
[2020-03-21] MEDS: FLUTICASONE/VILANTEROL 1 EACH BLST.W.DEV IH SCH (17:16)
[2020-03-21] MEDS: APIXABAN 5 MG TABLET PO SCH (17:42)
--- NOTE | 2020-03-21 18:37 | NUR ---
RN NOTES PATIENT IN BED RESTING COMFORTABLY IN MODERATE HIGH BACK REST. A/OX 4. ON OXYGEN 2LPM VIA NC. NO SIGNS OF DISTRESS. IV ACCESS ON RIGHT HAND #20, PATENT AND INTACT. ON TELE MONITOR WITH CURRENT READING OF SR WITH HR OF 70'S. SAFETY MEASURES IN PLACE, BED IN LOWEST LOCKED POSITION WITH SIDE RAILS UP X2. CALL LIGHT WITHIN REACH. WILL ENDORSE TO BILL ADJUSTER NURSE FOR [facility].
[2020-03-21] MEDS ORDERED: CLONIDINE HCL 0.1 MG TABLET PO PRN (19:30)
--- NOTE | 2020-03-21 19:39 | NUR ---
TELE/RN OPENING NOTES RECEIVED PATIENT IN BED, AWAKE, ALERT X3, ABLE TO VERBALIZE NEEDS, REPORTED BEING COLD AND PROVIDED WARM BLANKET, HAD MEDICATION MORPHINE GIVEN EARLIER BY AM RN, ON ROOM AIR WITH RESPIRATIONS EVEN AND UNLABORED, BED LOCKED, CALL LIGHTS WITHIN REACH, DISCUSSED PLAN OF CARE AND BLOOD PRESSURE MODERATE HIGH, TO GIVE NEEDED MEDICATION AND MONITORED BLOOD PRESSURE AND TELE AT SR 60.
[2020-03-21 20:00] VITALS: BP 141/74
[2020-03-21] MEDS: IPRATROPIUM NEB FS 0.5 MG/2.5 ML AMPUL.NEB NEB SCH (20:01)
[2020-03-21] MEDS: NIFEdipine XL (30MG) 30 MG TAB PO SCH (20:18)
[2020-03-21] MEDS: GABAPENTIN 300 MG CAPSULE PO SCH (20:19)
[2020-03-21] MEDS ORDERED: METOPROLOL TARTRATE 25 MG TABLET PO SCH (21:00)
--- NOTE | 2020-03-21 21:04 | NUR ---
TELE/RN NOTES PAIN IN MID CHEST AND PHANTOM LIMB ON KNEE AMPUTATION REPORTED OF 8/10. NEEDED MORPHINE PRESCRIBED GIVEN, BLOOD PRESSURE CHECK MODERATELY HIGH SBP AT 142, PULSE AT 62, OXYGENATION AT 97 % AT 2 LITER. TO MONITOR.
--- NOTE | 2020-03-21 23:04 | NUR ---
report given to rn for grecia
--- NOTE | 2020-03-21 23:05 | NUR ---
RN NOTES Assume care of this patient. On bed, asleep. On RA, no s/sx of discomfort noted. On fall and aspiration precautions. Call light within easy reach. Will continue to monitor accordingly.
[2020-03-22] VITALS (8 sets, daily range): BP systolic 95–125; BP diastolic 48–68
[2020-03-22] MEDS: IPRATROPIUM NEB FS 0.5 MG/2.5 ML AMPUL.NEB NEB SCH ×4 (00:48→19:52)
[2020-03-22] MEDS: HYDROCODONE/APAP 5/325MG TABLET PO PRN ×3 (03:41→22:29)
--- NOTE | 2020-03-22 07:19 | NUR ---
RN CLOSING NOTES Pt asleep on bed, comfortable. No new complaints made. On tele monitor with NSR noted. All nursing needs attended. Kept on bed clean, dry and comfortable. Endorsed.
[2020-03-22 07:40] LABS: BASOPHILS % (AUTO) 0.8 % (0.0-2.0); EOSINOPHILS % (AUTO) 2.2 % (0.0-6.0); HEMATOCRIT 41 % (39-51); HEMOGLOBIN 13.6 g/dL (13.5-17.5); LYMPHOCYTES # (AUTO) 1.7 /CMM (0.8-4.8); LYMPHOCYTES % (AUTO) 32.2 % (20.0-44.0); MEAN CORPUSCULAR HGB CONC 33 g/dl (31.0-36.0); MEAN CORPUSCULAR VOLUME 87 fL (80-96); MONOCYTES # (AUTO) 0.6 /CMM (0.1-1.30); MONOCYTES % (AUTO) 12.1 % (2.0-12.0); NEUTROPHILS # (AUTO) 2.7 /CMM (1.8-8.9); NEUTROPHILS % (AUTO) 52.7 % (43.0-81.0); PLATELET COUNT (AUTO) 107 /CMM (150-450); RED BLOOD CELL COUNT(AUTO) 4.69 MIL/uL (4.5-6.0); WHITE BLOOD COUNT (AUTO) 5.2 K/uL (4.3-11.0)
[2020-03-22 07:43] LABS: CALCIUM, SERUM 8.3 mg/dL (8.5-10.1); CREATININE 0.9 mg/dL (0.6-1.3); POTASSIUM 3.9 mmol/L (3.5-5.1)
--- NOTE | 2020-03-22 08:00 | NUR ---
RN NOTES RECEIVED PATIENT IN THE BED A/O X4,TELE SR- 70, ON O22L NC, NO ACUTE RESPIRATORY DISTRESS, V/S TAKEN WNL, WAS COMPLAINING OF GENERALIZED PAIN AND LEFT BKA AND STATE "I AM STILL HAVING PHANTOM PAIN". PATIENT TOLERATED BREAKFAST WELL, TURN AND REPOSTION SELF IN THE BED. CALL LIGHT WITHIN TO REACH, DUE MEDICATION ADMINISTERED.
[2020-03-22] MEDS: ATORVASTATIN 40 MG TABLET PO SCH (08:52)
[2020-03-22] MEDS: ASPIRIN EC 81 MG TABLET.DR PO SCH (08:52)
[2020-03-22] MEDS: NIFEdipine XL (30MG) 30 MG TAB PO SCH (08:52)
[2020-03-22] MEDS: APIXABAN 5 MG TABLET PO SCH ×2 (08:55→17:21)
[2020-03-22] MEDS: GABAPENTIN 300 MG CAPSULE PO SCH ×2 (08:55→22:27)
[2020-03-22] MEDS: FLUTICASONE/VILANTEROL 1 EACH BLST.W.DEV IH SCH (08:59)
[2020-03-22] MEDS: MORPHINE SULFATE INJ 2 MG/ML DISP.SYRIN IV PRN ×2 (08:59→17:22)
--- NOTE | 2020-03-22 08:59 | NUR ---
RN NOTES ADMINISTERED MORPHINE SULFATE 2 MG/ML IV PUSH FOR GENERALIZED PAIN 01/01 PER PATIENT REQUEST, V/S TAKEN BP-117/66, P-63, CONTINUED MONITORING.
[2020-03-22] MEDS ORDERED: TIOTROPIUM BROMIDE 6 CAP/BOX CAP.W.DEV IH SCH (09:00)
--- NOTE | 2020-03-22 10:11 | NUR ---
RN NOTES PATIENT WILLING TO GET STAT CT ANGIO, AND CT PULMONARY PER STEAM TENDER ORDER, PATIENTN SIGN CONSENT FORM.
--- NOTE | 2020-03-22 10:18 | NUR ---
RN NOTES PATIENT TAKING AT THIS TIME FOR CT HEART, AND LUNGS.
[2020-03-22] MEDS ORDERED: IV NS 0.9% 250 ML IV ONE (10:24)
[2020-03-22] MEDS ORDERED: IOHEXOL-350 100 ML VIAL IV ONE (10:24)
[2020-03-22] MEDS ORDERED: NITROGLYCERIN 0.4 MG/TAB BOTTLE SL ONE (11:00)
[2020-03-22] MEDS ORDERED: METOPROLOL TARTRATE INJ 5 MG/5 ML AMPUL IVP PRN (11:00)
[2020-03-22] MEDS ORDERED: IV NS 0.9% 500 ML IV ONE (11:00)
--- NOTE | 2020-03-22 11:37 | NUR ---
CTA done, Patient HR been below 60, metoprolol and NS bolus not given per parameter. Pt tolerated the procedure well
--- NOTE | 2020-03-22 11:40 | NUR ---
rn notes patient back from CTA, stable.
--- NOTE | 2020-03-22 12:04 | NUR ---
rn notes administered narco 5/325 mg po pen for generalized pain 01/01 per patient request, v/s taken bp 125/65, p-64,r-18, continued monitoring.
--- NOTE | 2020-03-22 14:13 | NUR ---
rn notes administered xanax 1 mg po prn for anxiety.
--- NOTE | 2020-03-22 17:22 | NUR ---
RN NOTES ADMINISTERED MORPHINE SULFATE 2 MG/ML IV PUSH FOR CHEST PAIN, AND LEFT LEG PHANTOM PAIN 02/01 PER PATIENT REQUEST, V/S TAKEN BP 108/65, P-64, R-17.
--- NOTE | 2020-03-22 18:30 | NUR ---
RN NOTES PATIENT STABLE MEDICATION WERE ADMINISTERED FOR PAIN EFFECTIVE, RESTING IN THE BED. ENDORSED ONCOMING NURSE FOLLOW SUDHEER.
--- NOTE | 2020-03-22 19:48 | NUR ---
MS/TELE/RN AT INITIAL SHIFT ROUNDING AT 1930, PATIENT WAS ON BED AWAKE, ALERT, ORIENTED, COMFORTABLE, NO C/O PAIN, NO DISTRESS NOTED, CALL LIGHT IN REACH. WILL MONITOR. FALL PRECAUTIONS PER PROTOCOL.
[2020-03-23 00:30] VITALS: BP 116/75
--- NOTE | 2020-03-23 00:34 | NUR ---
MS/TELE/RN PATIENT IS SLEEPING, EASILY AROUSABLE, APPEAR COMFORTABLE, NO SIGNS OF DISTRESS NOTED, CALL LIGHT IN REACH, WILL CONTINUE TO MONITOR.
[2020-03-23] MEDS: IPRATROPIUM NEB FS 0.5 MG/2.5 ML AMPUL.NEB NEB SCH ×3 (01:30→13:45)
[2020-03-23 04:00] VITALS: BP 122/72
--- NOTE | 2020-03-23 06:49 | NUR ---
MS/TELE/RN PATIENT IS STILL SLEEPING AT THIS TIME, APPEAR COMFORTABLE, NO SIGNS OF DISTRESS NOTED, CALL LIGHT IN REACH, ALL NEEDS ATTENDED AT THIS TIME, WILL CONTINUE TO MONITOR.
[2020-03-23 08:00] VITALS: BP 120/79
--- NOTE | 2020-03-23 08:00 | NUR ---
N NOTES RECEIVED PATIENT IN THE BED A/O X4,TELE SR- 65 ON O22L NC, NO ACUTE RESPIRATORY DISTRESS, V/S TAKEN WNL, WAS COMPLAINING OF GENERALIZED PAIN AND LEFT BKA. PATIENT TOLERATED BREAKFAST WELL, TURN AND REPOSTION SELF IN THE BED. CALL LIGHT WITHIN TO REACH, DUE MEDICATION ADMINISTERED.
[2020-03-23] MEDS: FLUTICASONE/VILANTEROL 1 EACH BLST.W.DEV IH SCH (10:06)
[2020-03-23] MEDS: ATORVASTATIN 40 MG TABLET PO SCH (10:06)
[2020-03-23] MEDS: APIXABAN 5 MG TABLET PO SCH ×2 (10:07→16:53)
[2020-03-23 10:08] VITALS: BP 120/79
[2020-03-23] MEDS: NIFEdipine XL (30MG) 30 MG TAB PO SCH (10:08)
[2020-03-23] MEDS: GABAPENTIN 300 MG CAPSULE PO SCH (10:08)
[2020-03-23] MEDS: ASPIRIN EC 81 MG TABLET.DR PO SCH (10:09)
[2020-03-23] MEDS: HYDROCODONE/APAP 5/325MG TABLET PO PRN (10:12)
--- NOTE | 2020-03-23 10:12 | NUR ---
RN NOTES ADMINISTERED NARCO 5/325 MG PO PRN FOR GENERALIZED PAIN V/S TAKEN BP 120/79, P-69. PER BUTTON BROACHER PATIENT D/C TELE TO [employer].
[2020-03-23] MEDS ORDERED: NIFE-35 PO (10:23)
--- NOTE | 2020-03-23 13:28 | NUR ---
RN NOTES Did well during hospitalization No events on telemetry, NV ruled out with cardiac enzymes No acute PE or coronary stenosis on imaging Stable for discharge Follow-up with Dr. Queen 1 to 2 weeks Level of Care
[2020-03-23] MEDS: MORPHINE SULFATE INJ 2 MG/ML DISP.SYRIN IV PRN (13:31)
--- NOTE | 2020-03-23 13:31 | NUR ---
RN NOTES ADMINISTERED MORPHINE SULFATE 2 MG/ML IV PUSH FOR GENERALIZED PAIN PER PATIENT REQUEST /10 PER ALATORRE SCALE V/S TAKEN, BP 112/65, P-65, R-17 CONTINUED MONITORING.
--- NOTE | 2020-03-23 17:20 | NUR ---
nurse prn notes patient discharge at this time going home with self care. patient sable, v/s wnl, refused pain, no pain. med reconciliation and discharge order reviewed and explained to. Patient verbalized understanding. belonging with the patient. patient will follow cable engineer outside plant Dr Greenberg in 2 weeks, and pcp. Medication electronically done by hospitalist. patient sign paperwork, refused pictures. Escorted patient to the lob for safety. patient nut picker by daughter name jenn phone#[phone].
== END 2020-03-23 17:20 | disposition home or self-care (01) | DRG 303 ==
LOC: ER 11:11 → TELE 14:54 → MED 03-23 10:04
PROVIDERS: ADMIT Internal Medicine; ATTEND Internal Medicine
DX: I25.10 Atherosclerotic heart disease of native coronary artery without angina pectoris (principal); I10 Essential (primary) hypertension; E78.5 Hyperlipidemia, unspecified; J44.9 Chronic obstructive pulmonary disease, unspecified; B19.20 Unspecified viral hepatitis C without hepatic coma; Z86.711 Personal history of pulmonary embolism; Z89.612 Acquired absence of left leg above knee; Z99.81 Dependence on supplemental oxygen; Z95.5 Presence of coronary angioplasty implant and graft; Z87.891 Personal history of nicotine dependence; I25.2 Old myocardial infarction; Z85.46 Personal history of malignant neoplasm of prostate; Z86.718 Personal history of other venous thrombosis and embolism; I73.9 Peripheral vascular disease, unspecified; M06.9 Rheumatoid arthritis, unspecified
CPT/HCPCS: 36415; 71045-TC; 75574; 80048-TC; 80076-TC; 83735-TC; 83880; 84100-TC; 84484-TC; 85025-TC; 87081-TC; 94760-TC; 94799-TC; C9803-CS; G0378; J1885; J2270; J3490; J7050; Q9967

== ENCOUNTER 2020-08-24 16:42 | Emergency (ER) | payer MEDICARE, OTHER ==
[~2020-08-24] VITALS: Ht 182.9 cm; Wt 70.3 kg
[~2020-08-24 16:42] MED LIST changes: +APIX5TAB PO; +HYDR-3980 PO; +NIFE-35 PO
[2020-08-24 16:53] VITALS: BP 122/85
[2020-08-24] MEDS ORDERED: oxyCODONE/APAP (5/325 MG) 1 UDTAB TABLET PO ONE (17:30)
[2020-08-24] MEDS ORDERED: OFLO5DRO5 LEFT EAR (17:32)
[2020-08-24] MEDS ORDERED: AMOX-430 PO (17:32)
[2020-08-24] MEDS ORDERED: oxyCODONE/APAP (5/325 MG) 1 UDTAB TABLET ONE (17:35)
--- NOTE | 2020-08-24 17:50 | NUR ---
Patient discharged to home in stable condition. Written and verbal after care instructions given. Patient verbalizes understanding of instruction. NOT ABLE TO DISCHARGE IN [facility]. SYSTEM ISSUE ONGOING.
== END 2020-08-24 17:50 | disposition home or self-care (01) ==
LOC: ER 16:42
DX: H92.22 Otorrhagia, left ear (principal); R51.9 Headache, unspecified; G89.29 Other chronic pain; I10 Essential (primary) hypertension; I25.2 Old myocardial infarction; I25.10 Atherosclerotic heart disease of native coronary artery without angina pectoris; J44.9 Chronic obstructive pulmonary disease, unspecified; E78.00 Pure hypercholesterolemia, unspecified; E78.5 Hyperlipidemia, unspecified; Z85.46 Personal history of malignant neoplasm of prostate; Z86.19 Personal history of other infectious and parasitic diseases; Z89.612 Acquired absence of left leg above knee; Z95.5 Presence of coronary angioplasty implant and graft; Z98.890 Other specified postprocedural states; Z87.891 Personal history of nicotine dependence; Z86.73 Personal history of transient ischemic attack (TIA), and cerebral infarction without residual deficits; Z79.82 Long term (current) use of aspirin; Z79.899 Other long term (current) drug therapy

== ENCOUNTER 2022-08-21 13:03 | Inpatient (IN) | payer MEDICARE, OTHER ==
[~2022-08-21] VITALS: Ht 182.9 cm; Wt 56.2 kg
[~2022-08-21 13:03] MED LIST changes: +AMOX-430 PO; +OFLO5DRO5 LEFT EAR
[2022-08-21] MEDS ORDERED: IPRATROPIUM NEB FS 0.5 MG/2.5 ML AMPUL.NEB ONE (13:18)
[2022-08-21] MEDS ORDERED: ALBUTEROL FS 2.5 MG/3 ML VIAL.NEB ONE (13:18)
[2022-08-21] MEDS ORDERED: methylPREDNISolone SOD SUCC 125 MG/2ML VIAL ONE (13:26)
[2022-08-21] MEDS ORDERED: Magnesium 1GM/D5W 100ML PREMIX 100 ML IV ONE (13:26)
[2022-08-21] MEDS ORDERED: methylPREDNISolone SOD SUCC 125 MG/2ML VIAL IV ONE (13:30)
[2022-08-21] MEDS ORDERED: Magnesium 1GM/D5W 100ML PREMIX 200 ML IV ONE (13:30)
[2022-08-21] MEDS ORDERED: ALBUTEROL FS 2.5 MG/3 ML VIAL.NEB NEB ONE (13:30)
[2022-08-21] MEDS ORDERED: IPRATROPIUM NEB FS 0.5 MG/2.5 ML AMPUL.NEB NEB ONE (13:30)
--- NOTE | 2022-08-21 13:45 | NUR ---
pt in bed vitals taken, IV placed on RH 20g. Meds given
--- NOTE | 2022-08-21 14:12 | NUR ---
Dr. Gross seen pt at bedside informed him on upcoming planes
[2022-08-21 14:32] LABS: BASOPHILS % (AUTO) 0.2 % (0.0-2.0); EOSINOPHILS % (AUTO) 0.9 % (0.0-6.0); HEMATOCRIT 43 % (39-51); LYMPHOCYTES # (AUTO) 0.8 K/uL (0.8-4.8); LYMPHOCYTES % (AUTO) 13.7 % (20.0-44.0); MEAN CORPUSCULAR HGB CONC 33 g/dl (31.0-36.0); MEAN CORPUSCULAR VOLUME 87 fL (80-96); MONOCYTES # (AUTO) 0.8 K/uL (0.1-1.30); MONOCYTES % (AUTO) 13.2 % (2.0-12.0); NEUTROPHILS # (AUTO) 4.3 K/uL (1.8-8.9); PLATELET COUNT (AUTO) 99 K/uL (150-450); RED BLOOD CELL COUNT(AUTO) 4.92 MIL/uL (4.5-6.0)
[2022-08-21 14:52] LABS: CARBON DIOXIDE 33 mmol/L (21-32); CHLORIDE 102 mmol/L (98-107); CREATININE 0.8 mg/dL (0.6-1.3); GLUCOSE 142 mg/dL (74-106); SODIUM SERUM 139 mmol/L (136-145); UREA NITROGEN, BLOOD 24 mg/dL (7-18)
[2022-08-21] MEDS ORDERED: ENOXAPARIN SODIUM 30 MG/0.3 ML DISP.SYRIN SQ SCH (15:30)
[2022-08-21] MEDS ORDERED: Z GUARD REMEDY 4 OZ OINT TP PRN (15:30)
[2022-08-21] MEDS ORDERED: ZOLPIDEM TARTRATE 5 MG TABLET PO PRN (15:30)
[2022-08-21] MEDS ORDERED: ACETAMINOPHEN 325 MG TABLET PO PRN (15:30)
[2022-08-21] MEDS ORDERED: MAG HYDROX/AL HYDROX/SIMETH 30 ML UDC PO PRN (15:30)
[2022-08-21] MEDS ORDERED: MULT-447 PO (15:30)
[2022-08-21] MEDS ORDERED: ONDANSETRON HCL/PF 4 MG/2 ML VIAL IVP PRN (15:30)
[2022-08-21] MEDS ORDERED: ALBU18HF2 IH (15:30)
[2022-08-21] MEDS ORDERED: MAGNESIUM HYDROXIDE 30 ML UDC PO PRN (15:30)
--- NOTE | 2022-08-21 15:45 | NUR ---
pt removed prostetic leg placed on wheele chair
--- NOTE | 2022-08-21 15:47 | NUR ---
CALLED NURSING SUP REGARDING PT BED
[2022-08-21] MEDS ORDERED: HYDROCODONE/APAP 5/325MG TABLET ONE (16:59)
[2022-08-21] MEDS ORDERED: HYDROCODONE/APAP 5/325MG TABLET PO ONE (17:00)
[2022-08-21] MEDS ORDERED: OFLOXACIN OTIC SOLN 5 ML BOTTLE LEFT EAR SCH (17:00)
--- NOTE | 2022-08-21 17:10 | NUR ---
Pt complaining of Phantom pain. Medications given
[2022-08-21 17:29] LABS: BAND % (MANUAL) 2 % (0.0-5.0); LYMPHOCYTES % (MANUAL) 14 % (16-48); MONOCYTES % (MANUAL) 7 % (0-11.0); NEUTROPHILS % (MANUAL) 77 (42-76)
[2022-08-21] MEDS ORDERED: IPRATROPIUM NEB FS 0.5 MG/2.5 ML AMPUL.NEB NEB SCH (18:00)
--- NOTE | 2022-08-21 18:34 | NUR ---
pt is in bed eating dinner no new complaints
--- NOTE | 2022-08-21 19:24 | NUR ---
Report Given to Gallo HERNANDEZ
--- NOTE | 2022-08-21 19:54 | NUR ---
REPORT GIVEN TO MAXX Pavon RN FOR SUDHEER
--- NOTE | 2022-08-21 20:15 | NUR ---
[facility] [phone]
[2022-08-21 20:55] VITALS: BP 133/87
--- NOTE | 2022-08-21 20:55 | NUR ---
SOFTWARE QUALITY ANALYSTSCLEROSCOPE TESTER NOTE RECEIVED REPORT FROM ER NURSE SONYA. PT ADMITTED TO ROOM 324-1 WITH DIAGNOSIS OF COPD EXACERBATION. PT ARRIVES FROM ER VIA GURNEY. PT A/O X3-4, ABLE TO VERBALIZE NEEDS. PT ON 02 3LPM, WITH RESPIRATION EVEN, AND UNLABORED. NO C/O PAIN, OR DISCOMFORT AT THIS TIME. PT IS WHEELCHAIR BOUND. HAS PROSTHETIC LEG TO LEFT SIDE. BELONGING LIST CHECKED, AND PLACED IN CHART. SKIN ASSESSMENT COMPLETED. PT HAS RASH TO BILATERAL ARMS, AND SCAR TO AKA TO LEFT LEG. PICTURES TAKEN, AND PLACED IN CHART. SAFETY MEASURES IN PLACE: BED LOCKED IN LOW POSITION, SR UP X2, CALL LIGHT WITHIN REACH. WILL CONTINUE TO MONITOR PT.
[2022-08-21] MEDS ORDERED: LEVOFLOXACIN 500 MG /D5W 100ML 500 MG in PREMIX 1 EA IV SCH (21:00)
--- NOTE | 2022-08-21 21:06 | NUR ---
PT TRANSFERRED TO 3 324-1 VIA ACLS PROTOCOL. VSS. ALL BELONGINGS & PERSONAL W/C WITH PT.
[2022-08-21] MEDS: ALBUTEROL FS 2.5 MG/3 ML VIAL.NEB NEB SCH (21:39)
[2022-08-21] MEDS: methylPREDNISolone SOD SUCC 40 MG/ML VIAL IV SCH (21:46)
[2022-08-21] MEDS: GABAPENTIN 300 MG CAPSULE PO SCH (21:47)
[2022-08-21] MEDS: APIXABAN 5 MG TABLET PO SCH (21:50)
--- NOTE | 2022-08-21 22:00 | NUR ---
MANAGER CONSUMER INSIGHTS NOTE PT IS ADMINISTERED LEVAQUIN IVPB, BUT PT C/O GETTING A RASH, AND ITCHINESS. MD MADERA CALLED, AND MADE AWARE. NEW ORDER ENTERED BY FOR ELYSE, NINA, AND SOLU-CORTEF. LEVAQUIN IS DISCONTINUE. ORDER CARRIED OUT, AND IMPLEMENTED.
[2022-08-21] MEDS: HYDROCODONE/APAP 10/325MG TABLET PO PRN (22:30)
--- NOTE | 2022-08-21 22:30 | NUR ---
CERAMIC ENGINEER NOTE PT C/O PAIN TO LEFT STUMP. NORCO ADMINSTERED TO PT.
[2022-08-22] VITALS: BP 118/71
[2022-08-22] MEDS ORDERED: diphenhydrAMINE HCL 50 MG/ML VIAL IV ONE
[2022-08-22] MEDS ORDERED: HYDROCORTISONE SOD SUCCINATE 100 MG/2 ML VIAL IV ONE
[2022-08-22] MEDS: IV NS 0.9% 1,000 ML IV PRN ×2 (00:22→16:26)
[2022-08-22] MEDS ORDERED: CEFTRIAXONE 1 G VIAL ONE (01:01)
[2022-08-22] MEDS ORDERED: LEVETIRACETAM (500MG) 500 MG/5 ML VIAL IV ONE (01:04)
[2022-08-22] MEDS: IPRATROPIUM NEB FS 0.5 MG/2.5 ML AMPUL.NEB NEB SCH ×4 (01:30→20:59)
[2022-08-22] MEDS: ALBUTEROL FS 2.5 MG/3 ML VIAL.NEB NEB SCH ×4 (01:30→20:59)
[2022-08-22] MEDS: CEFTRIAXONE 2 G in IV NS 0.9% 100 ML IV SCH (01:47)
[2022-08-22 04:00] VITALS: BP_SYST 124; BP_SYST 130; BP_DIAS 56; BP_DIAS 73
[2022-08-22] MEDS: methylPREDNISolone SOD SUCC 40 MG/ML VIAL IV SCH ×3 (05:34→21:28)
[2022-08-22 06:20] LABS: BASOPHILS % (AUTO) 0.1 % (0.0-2.0); EOSINOPHILS % (AUTO) 0.1 % (0.0-6.0); HEMATOCRIT 38 % (39-51); HEMOGLOBIN 12.6 g/dL (13.5-17.5); LYMPHOCYTES # (AUTO) 0.4 K/uL (0.8-4.8); LYMPHOCYTES % (AUTO) 7.4 % (20.0-44.0); MEAN CORPUSCULAR HGB CONC 33 g/dl (31.0-36.0); MEAN CORPUSCULAR VOLUME 87 fL (80-96); MONOCYTES # (AUTO) 0.2 K/uL (0.1-1.30); MONOCYTES % (AUTO) 3.5 % (2.0-12.0); NEUTROPHILS # (AUTO) 4.4 K/uL (1.8-8.9); NEUTROPHILS % (AUTO) 88.9 % (43.0-81.0); PLATELET COUNT (AUTO) 90 K/uL (150-450); RED BLOOD CELL COUNT(AUTO) 4.34 MIL/uL (4.5-6.0); WHITE BLOOD COUNT (AUTO) 4.9 K/uL (4.3-11.0)
[2022-08-22 06:40] LABS: ALBUMIN 3.5 g/dL (3.4-5.0); BILIRUBIN,TOTAL 0.7 mg/dL (0.2-1.0); CALCIUM, SERUM 8.6 mg/dL (8.5-10.1); CREATININE 0.8 mg/dL (0.6-1.3); MAGNESIUM 2.2 mg/dL (1.8-2.4); PHOSPHORUS 3.4 mg/dL (2.5-4.9); POTASSIUM 4.5 mmol/L (3.5-5.1); TOTAL PROTEIN, SERUM 6.7 g/dL (6.4-8.2)
--- NOTE | 2022-08-22 07:30 | NUR ---
PHYSICIAN PRACTICE ADMINISTRATOR NOTES PT IN BED, ASLEEP, EASY TO AROUSE, ALERT AND ORIENTED, NO COMPLAINT OF SHORTNESS OF BREATH, WITH COMPLAINT OF PAIN AT LEG STUMP, CALL LIGHT WITHIN REACH, ASSISTED WITH NEEDS.
--- NOTE | 2022-08-22 07:45 | NUR ---
CAPACITY MANAGER CLOSING NOTE LEFT PATIENT SLEEPING IN BED, EASILY AWAKEN, A/OX4, ABLE TO MAKE NEEDS KNOWN. ON O2 AT 3LPM, WITH BREATHING EVEN AND NON LABORED. NO S/S OF RESPIRATORY DISTRESS. IV ACCESS RIGHT HAND #20G INFUSING NS AT 75 ML/HR. ALL SAFETY MEASURES MAINTAINED: BED IN LOWEST AND LOCKED POSITION, CALL LIGHT AND TRAY TABLE WITHIN EASY REACH, SIDE RAILS UP X 2. WILL ENDORSE PT TO AM SHIFT NURSE FOR SUDHEER.
[2022-08-22] MEDS ORDERED: LIDOCAINE 5% (PATCH) 1 EA PATCH TP SCH (09:00)
[2022-08-22] MEDS ORDERED: FLUTICASONE/VILANTEROL 1 EACH BLST.W.DEV IH SCH (09:00)
[2022-08-22] MEDS: ASPIRIN EC 81 MG TABLET.DR PO SCH (09:13)
[2022-08-22] MEDS: ATORVASTATIN 40 MG TABLET PO SCH (09:13)
[2022-08-22] MEDS: NIFEdipine XL (30MG) 30 MG TAB PO SCH (09:14)
[2022-08-22] MEDS: APIXABAN 5 MG TABLET PO SCH ×2 (09:15→16:20)
[2022-08-22] MEDS: GABAPENTIN 300 MG CAPSULE PO SCH ×2 (09:15→21:28)
[2022-08-22] MEDS: HYDROCODONE/APAP 10/325MG TABLET PO PRN ×3 (09:26→18:58)
[2022-08-22] MEDS: ENSURE ENLIVE CHOC 237 ML CAN PO SCH ×2 (12:56→17:22)
[2022-08-22 13:06] LABS: NEUTROPHILS % (MANUAL) 78 (42-76)
[2022-08-22 13:07] LABS: BAND % (MANUAL) 9 % (0.0-5.0); LYMPHOCYTES % (MANUAL) 8 % (16-48); MONOCYTES % (MANUAL) 5 % (0-11.0)
[2022-08-22] MEDS ORDERED: PANTOPRAZOLE 40 MG VIAL IV SCH (15:00)
--- NOTE | 2022-08-22 18:58 | NUR ---
SUPERVISOR HARVESTING NOTES PT IN BED, AWAKE, ALERT AND ORIENTED, PAIN MEDS GIVEN FOR PAIN MANAGEMENT, CALL LIGHT WITHIN REACH, IV FLUIDS INFUSING WELL, PM MEDS GIVEN, ALL NEEDS ATTENDED.
--- NOTE | 2022-08-22 19:50 | NUR ---
PIG IRON LOADER OPENING NOTE RECEIVED PATIENT IN BED, AWAKE, WITH FAMILY AT BEDSIDE. PT A/OX4, ABLE TO MAKE NEEDS KNOWN. ON O2 AT 3LPM, WITH BREATHING EVEN AND NON LABORED. NO S/S OF RESPIRATORY DISTRESS. IV ACCESS RIGHT HAND #20G INFUSING NS AT 75 ML/HR. ALL SAFETY MEASURES MAINTAINED: BED IN LOWEST AND LOCKED POSITION, CALL LIGHT AND TRAY TABLE WITHIN EASY REACH, SIDE RAILS UP X 2. WILL CONTINUE TO MONITOR PT.
[2022-08-22 20:00] VITALS: BP 119/70
[2022-08-22] MEDS: LIDOCAINE 5% (PATCH) 1 EA PATCH TP SCH (21:28)
[2022-08-23] VITALS: BP 98/54
[2022-08-23] MEDS: ALBUTEROL FS 2.5 MG/3 ML VIAL.NEB NEB SCH ×4 (00:46→19:56)
[2022-08-23] MEDS: IPRATROPIUM NEB FS 0.5 MG/2.5 ML AMPUL.NEB NEB SCH ×4 (00:46→19:56)
[2022-08-23] MEDS: CEFTRIAXONE 2 G in IV NS 0.9% 100 ML IV SCH (00:51)
[2022-08-23] MEDS: HYDROCODONE/APAP 10/325MG TABLET PO PRN ×4 (05:20→21:37)
--- NOTE | 2022-08-23 05:20 | NUR ---
PLATER APPRENTICE NOTE PT C/O PAIN TO LEFT STUMP. NORCO ADMINISTERED TO PT.
[2022-08-23] MEDS: methylPREDNISolone SOD SUCC 40 MG/ML VIAL IV SCH ×3 (05:21→21:24)
--- NOTE | 2022-08-23 06:40 | NUR ---
SYSTEM PLANNING ENGINEER CLOSING NOTE LEFT PATIENT SITTING IN BED. PT A/OX4, ABLE TO MAKE NEEDS KNOWN. ON O2 AT 3LPM, WITH BREATHING EVEN AND NON LABORED. NO S/S OF RESPIRATORY DISTRESS. IV ACCESS RIGHT HAND #20G INFUSING NS AT 75 ML/HR. PT IS HAVING TROUBLE URINATING. PT ALSO FEELS PAIN WHILE TRYING TO URINATE. BLADDER SCAN DONE, PVR: 777 ML. MD FELTON IS CALLED, AND MADE AWARE. AWAITING FOR MD TO CALL BACK. ALL SAFETY MEASURES MAINTAINED: BED IN LOWEST AND LOCKED POSITION, CALL LIGHT AND TRAY TABLE WITHIN EASY REACH, SIDE RAILS UP X 2. WILL ENDORSE PT TO AM SHIFT NURSE FOR SUDHEER.
[2022-08-23 07:21] LABS: HEMATOCRIT 39 % (39-51); HEMOGLOBIN 12.8 g/dL (13.5-17.5); LYMPHOCYTES # (AUTO) 0.4 K/uL (0.8-4.8); LYMPHOCYTES % (AUTO) 2.9 % (20.0-44.0); MEAN CORPUSCULAR HGB CONC 33 g/dl (31.0-36.0); MEAN CORPUSCULAR VOLUME 88 fL (80-96); MONOCYTES # (AUTO) 0.7 K/uL (0.1-1.30); MONOCYTES % (AUTO) 5.4 % (2.0-12.0); NEUTROPHILS # (AUTO) 12.3 K/uL (1.8-8.9); NEUTROPHILS % (AUTO) 91.7 % (43.0-81.0); PLATELET COUNT (AUTO) 97 K/uL (150-450); RED BLOOD CELL COUNT(AUTO) 4.47 MIL/uL (4.5-6.0); WHITE BLOOD COUNT (AUTO) 13.4 K/uL (4.3-11.0)
[2022-08-23 07:23] LABS: CALCIUM, SERUM 8.7 mg/dL (8.5-10.1); POTASSIUM 4.7 mmol/L (3.5-5.1)
--- NOTE | 2022-08-23 07:40 | NUR ---
OVEN BUILDER OPENING NOTE RECEIVED PATIENT IN BED, AWAKE, WITH FAMILY AT BEDSIDE. PT A/OX4, ABLE TO MAKE NEEDS KNOWN. ON O2 AT 3LPM, WITH NO SOB OR DISTRESS NOTED AT THIS TIME. NO C/O OF PAIN AND DISCOMFORT NOTED . IV ACCESS RIGHT HAND #20G INFUSING NS AT 75 ML/HR. ALL SAFETY MEASURES MAINTAINED: BED IN LOWEST AND LOCKED POSITION, CALL LIGHT AND TRAY TABLE WITHIN EASY REACH, SIDE RAILS UP X 2. WILL CONTINUE TO MONITOR PT.
[2022-08-23 08:00] VITALS: BP 150/84
--- NOTE | 2022-08-23 09:00 | NUR ---
RN NOTES PATIENT C/O THAT HE STILL HAVING PROBLEM WITH URINATION , AND PER ENDORSEMENT FROM COMPUTATIONAL GENETICIST BLADDER SCAN WAS DONE AND WITH 700 ML RETENTION , BAKER OPERATOR AUTOMATIC MADELYN GUILLORY AWARE AND WITH ORDER OF VALLES , INSERTED VALLES CATHETER FR16 AND WITH GOOD URINE DRAINAGE , YELLOW COLORED URINE LIKE 800 CC OUTPUT UPON INSERTION .
[2022-08-23] MEDS: IV NS 0.9% 1,000 ML IV PRN ×2 (09:04→22:21)
[2022-08-23 09:11] LABS: LYMPHOCYTES % (MANUAL) 4 % (16-48); MONOCYTES % (MANUAL) 8 % (0-11.0); NEUTROPHILS % (MANUAL) 88 (42-76)
[2022-08-23] MEDS: ENSURE ENLIVE CHOC 237 ML CAN PO SCH ×3 (09:25→17:29)
[2022-08-23] MEDS: ASPIRIN EC 81 MG TABLET.DR PO SCH (09:25)
[2022-08-23] MEDS: GABAPENTIN 300 MG CAPSULE PO SCH ×2 (09:25→21:24)
[2022-08-23] MEDS: ATORVASTATIN 40 MG TABLET PO SCH (09:26)
[2022-08-23] MEDS: NIFEdipine XL (30MG) 30 MG TAB PO SCH (09:26)
[2022-08-23] MEDS: APIXABAN 5 MG TABLET PO SCH ×2 (09:28→17:28)
[2022-08-23] MEDS: PANTOPRAZOLE 40 MG TABLET.DR PO SCH (11:53)
--- NOTE | 2022-08-23 18:44 | NUR ---
AIX SYSTEM ADMINISTRATOR CLOSING NOTE RECEIVED PATIENT IN BED, AWAKE, WITH FAMILY AT BEDSIDE. PT A/OX4, ABLE TO MAKE NEEDS KNOWN. ON O2 AT 3LPM, WITH NO SOB OR DISTRESS NOTED AT THIS TIME. C/O OF PAIN AND DISCOMFORT AND DUE MEDS ORDERED GIVEN . IV ACCESS RIGHT HAND #20G INFUSING NS AT 75 ML/HR. ALL DUE MEDS ORDERED, WITH VALLES CATHETER DRAINING WITH YELLOW COLORED URINE , BREATHING TREATMENT DONE BY RT , ALL SAFETY MEASURES MAINTAINED: BED IN LOWEST AND LOCKED POSITION, CALL LIGHT AND TRAY TABLE WITHIN EASY REACH, SIDE RAILS UP X 2. WILL CONTINUE TO MONITOR PT.
--- NOTE | 2022-08-23 19:30 | NUR ---
CARE PROCESS MANAGER OPENING NOTES - RECEIVED PATIENT AWAKE, HOB IN SEMI-PETIT'S. A/O X4. BREATHING EVEN AND NON-LABORED, ON O2 AT 3LPM VIA NASAL CANULA. NOT IN APPARENT DISTRESS. DENIES PAIN, NAUSEA, VOMITING AND DIARRHEA AT THIS TIME. ON TELE MONITOR READING SINUS RHYTHM AT 97 BPM. HAS LEFT FOREARM IV ACCESS #20G WITH D5 1/2NS RUNNING AT 75 ML/HR. NO S/S OF INFILTRATION NOTED. HAS INDWELLING VALLES CATHETER DRAINING CLEAR LIZETT URINE TO BAG BY GRAVITY. SAFETY PRECAUTIONS IN PLACE: BED LOCKED AND IN LOW POSITION, SIDE RAILS UP X2, CALL LIGHT WITHIN REACH. WILL CONTINUE PLAN OF CARE.
[2022-08-23 20:11] VITALS: BP 112/65
[2022-08-23] MEDS: LIDOCAINE 5% (PATCH) 1 EA PATCH TP SCH (21:24)
--- NOTE | 2022-08-23 21:40 | NUR ---
C/O THROBBING AND BURNING LEFT LEG PAIN. GAVE PRN NORCO 10-325. WILL MONITOR AND MANAGE PAIN ORDERED.
[2022-08-24] MEDS: CEFTRIAXONE 2 G in IV NS 0.9% 100 ML IV SCH (00:15)
[2022-08-24 00:30] VITALS: BP 119/70
[2022-08-24] MEDS: ALBUTEROL FS 2.5 MG/3 ML VIAL.NEB NEB SCH ×4 (01:51→20:17)
[2022-08-24] MEDS: IPRATROPIUM NEB FS 0.5 MG/2.5 ML AMPUL.NEB NEB SCH ×4 (01:51→20:17)
[2022-08-24 04:45] VITALS: BP 117/68
[2022-08-24] MEDS: methylPREDNISolone SOD SUCC 40 MG/ML VIAL IV SCH ×3 (05:35→21:36)
[2022-08-24] MEDS: HYDROCODONE/APAP 10/325MG TABLET PO PRN ×4 (05:54→19:58)
--- NOTE | 2022-08-24 06:00 | NUR ---
PATIENT REQUESTED FOR HIS PRN NORCO 10-325. C/O CHRONIC LEFT LEG/STUMP PAIN 02/01. GIVEN AND TOLERATED WELL.
[2022-08-24 06:33] LABS: CALCIUM, SERUM 8.4 mg/dL (8.5-10.1); CREATININE 0.6 mg/dL (0.6-1.3); POTASSIUM 5.4 mmol/L (3.5-5.1)
--- NOTE | 2022-08-24 06:58 | NUR ---
MANAGER LEAN CLOSING NOTES - PATIENT SLEEPING, EASY TO AROUSE. NO ACUTE STRESS THROUGHOUT THE NIGHT. ON O2 AT 3LPM, SOB UPON EXERTION. KEPT ON BED REST. VERBALIZED LEFT LEG PAIN IMPROVEMENT. AFEBRILE. ON TELE MONITOR READING SINUS RHYTHM AT 76 BPM. RIGHT HAND IV ACCESS INTACT, PATENT AND FLUSHING. FC DRAINING CLEAR LIZETT URINE. ALL DUE MEDS GIVEN AND NEEDS ATTENDED. SAFETY PRECAUTIONS MAINTAINED. WILL ENDORSE TO NEXT SHIFT FOR SUDHEER.
--- NOTE | 2022-08-24 07:35 | NUR ---
ms rn received on bed, awake,alert,oriented x4,not in any form of distress, on o2 3 liters, respirations even and unlabored,no sob noted, denies pain at this time, terrell to gravity w/ yellowish urine output, all needs attended.
[2022-08-24 08:18] VITALS: BP 120/67
[2022-08-24] MEDS: ASPIRIN EC 81 MG TABLET.DR PO SCH (08:52)
[2022-08-24] MEDS: NIFEdipine XL (30MG) 30 MG TAB PO SCH (08:53)
[2022-08-24] MEDS: ATORVASTATIN 40 MG TABLET PO SCH (08:53)
[2022-08-24] MEDS: GABAPENTIN 300 MG CAPSULE PO SCH ×2 (08:53→21:36)
--- NOTE | 2022-08-24 09:10 | NUR ---
ms plasencia breakfast served,due meds given,tolerated well.
[2022-08-24] MEDS: ENSURE ENLIVE CHOC 237 ML CAN PO SCH ×3 (09:30→17:08)
[2022-08-24 10:28] LABS: BASOPHILS % (AUTO) 0.1 % (0.0-2.0); HEMATOCRIT 39 % (39-51); HEMOGLOBIN 12.5 g/dL (13.5-17.5); LYMPHOCYTES # (AUTO) 0.3 K/uL (0.8-4.8); MEAN CORPUSCULAR HGB CONC 32 g/dl (31.0-36.0); MEAN CORPUSCULAR VOLUME 90 fL (80-96); MONOCYTES # (AUTO) 0.3 K/uL (0.1-1.30); MONOCYTES % (AUTO) 3.1 % (2.0-12.0); NEUTROPHILS # (AUTO) 9.9 K/uL (1.8-8.9); NEUTROPHILS % (AUTO) 93.8 % (43.0-81.0); PLATELET COUNT (AUTO) 94 K/uL (150-450); RED BLOOD CELL COUNT(AUTO) 4.34 MIL/uL (4.5-6.0); WHITE BLOOD COUNT (AUTO) 10.5 K/uL (4.3-11.0)
[2022-08-24] MEDS: APIXABAN 5 MG TABLET PO SCH ×2 (10:45→17:10)
[2022-08-24] MEDS ORDERED: SODIUM POLYSTYRENE SULFONATE 15 G/60 ML BOTTLE PO ONE (11:00)
[2022-08-24] MEDS: PANTOPRAZOLE 40 MG TABLET.DR PO SCH (11:51)
[2022-08-24 11:59] VITALS: BP 132/56
[2022-08-24] MEDS: IV NS 0.9% 1,000 ML IV PRN (13:23)
[2022-08-24 16:26] VITALS: BP 114/58
--- NOTE | 2022-08-24 18:02 | NUR ---
ms rn on bed, no distress noted,all needs attended,will endorse to shift supervisor for grecia.
--- NOTE | 2022-08-24 19:54 | NUR ---
STRIPPER PRELIMINARY OPENING NOTES; RECEIVED PATIENT AWAKE IN BED, BED IN LOW POSITION CALL LIGHTS WITHIN REACH, NO COMPLAIN OF PAIN AND DISCOMFORT AT THIS TIME ON O2 INAHALTION AT 2LPM SATURATING WELL, PATIENT IS A/OX4 ABLE TO MAKE NEEDS KNOWN, AMBULATORY REMIND TO USE CALL LIGHTS FOR ASSISTANCE ON VALLES CATHETER-50CC URINE OUT, IV LINE AT RIGHT HAND #20 WITH ONGOING NSS@75ML/HR INFUSING WELL, PATIENT ON TELE MONITOR- SR-89, KEPT CLEAN AND DRY ALL NEEDS MET WILL CONTINUE TO MONITOR.
[2022-08-24 20:00] VITALS: BP 122/78
[2022-08-24] MEDS: LIDOCAINE 5% (PATCH) 1 EA PATCH TP SCH (21:36)
--- NOTE | 2022-08-24 21:50 | NUR ---
RN NOTES: PATIENT REFUSED GABAPENTIN, MEDICATION ALREADY OPENED AND PATIENT REFUSED, HE STATED THAT THE MEDICATION CAUSE HIS AIR PASSAGE CONSTRICT AND WAS HAVING DIFFICULTY BREATHING.
--- NOTE | 2022-08-24 23:15 | NUR ---
RN NOTES: PATIENT COMPLAIN OF PRODUCTIVE COUGH WITHIN STICKY PHLEGM, PATIENT COM[PLAIN OF DISCOMFORT WHICH CAUSE HIM DIFFICULTY IN BREATHING, NOTIFIED, HOSPITALIST AND ORDER COUGH MEDICINE NOTED AND CARRY OUT, PATIENT V/S REMAIN STABLE AND O2 SATURATION AT 96% ON 3LPM, WILL CONTINUE TO MONITOR.
[2022-08-25] VITALS: BP 117/68
[2022-08-25 00:21] LABS: BAND % (MANUAL) 7 % (0.0-5.0); BASOPHILS % (MANUAL) 0 % (0.0-2.0); EOSINOPHILS % (MANUAL) 0 % (0-4); LYMPHOCYTES % (MANUAL) 5 % (16-48); MONOCYTES % (MANUAL) 4 % (0-11.0); NEUTROPHILS % (MANUAL) 84 (42-76)
[2022-08-25] MEDS: GUAIFENESIN/D-METHORPHAN HB 5 ML UDC PO PRN ×2 (00:21→15:20)
[2022-08-25] MEDS: CEFTRIAXONE 2 G in IV NS 0.9% 100 ML IV SCH (00:21)
[2022-08-25] MEDS: IPRATROPIUM NEB FS 0.5 MG/2.5 ML AMPUL.NEB NEB SCH ×4 (01:30→19:30)
[2022-08-25] MEDS: ALBUTEROL FS 2.5 MG/3 ML VIAL.NEB NEB SCH ×4 (01:30→19:30)
[2022-08-25] MEDS: IV NS 0.9% 1,000 ML IV PRN (01:59)
[2022-08-25] MEDS: HYDROCODONE/APAP 10/325MG TABLET PO PRN ×2 (02:23→08:57)
[2022-08-25 05:00] VITALS: BP 130/75
[2022-08-25] MEDS: methylPREDNISolone SOD SUCC 40 MG/ML VIAL IV SCH ×3 (05:20→21:29)
--- NOTE | 2022-08-25 06:16 | NUR ---
HEAD START TEACHER CLOSING NOTES; PATIENT SLEEP IN BED COMFORTABLY, AROUSABLE TO VERBAL STIMULI, BED IN LOW POSITION CALL LIGHTS WITHIN REACH, NO COMPLAIN OF PAUINA ND DISCOMFORT AT THIS TIME ON O2 INHALATION AT 3LPM SATURATING WELL, PATIENT IS A/OX4 ABLE TO MAKE NEEDS KNOWN, ON TELE [id number], NO SYMPTOMS WAS OBSERVED, ON VALLES CATHETER- PATIENT KEPT CLEAN AND DRY ALL NEEDS MET ENDORSE TO INCOMING SHIFT.
--- NOTE | 2022-08-25 07:35 | NUR ---
ms rn received on bed, awake,alert,oriented x4,not in any form of distress, respirations even and unlabored,no sob noted, on 3 liters nasal canula , 95% saturation, terrell to gravity, w/ yellowish urine output,all needs attended.
[2022-08-25 08:00] VITALS: BP 124/66
[2022-08-25] MEDS: GUAIFENESIN LA 600 MG TABLET.SA PO SCH ×2 (08:51→21:00)
[2022-08-25] MEDS: GABAPENTIN 300 MG CAPSULE PO SCH (08:52)
[2022-08-25] MEDS: ATORVASTATIN 40 MG TABLET PO SCH (08:52)
[2022-08-25] MEDS: NIFEdipine XL (30MG) 30 MG TAB PO SCH (08:52)
[2022-08-25] MEDS: ASPIRIN EC 81 MG TABLET.DR PO SCH (08:52)
[2022-08-25] MEDS: APIXABAN 5 MG TABLET PO SCH ×2 (08:53→17:36)
[2022-08-25] MEDS: ENSURE ENLIVE CHOC 237 ML CAN PO SCH ×3 (08:55→17:38)
--- NOTE | 2022-08-25 09:40 | NUR ---
ms plasencia breakfast served,due meds given,tolerated well.
[2022-08-25 11:37] LABS: CALCIUM, SERUM 8.5 mg/dL (8.5-10.1); CREATININE 0.9 mg/dL (0.6-1.3); POTASSIUM 3.5 mmol/L (3.5-5.1)
[2022-08-25 12:00] VITALS: BP 111/69
[2022-08-25] MEDS: PANTOPRAZOLE 40 MG TABLET.DR PO SCH ×2 (12:27→21:00)
[2022-08-25 16:00] VITALS: BP 138/74
[2022-08-25] MEDS: ALPRAZOLAM 1 MG TABLET PO PRN (16:07)
[2022-08-25] MEDS ORDERED: IPRATROPIUM NEB FS 0.5 MG/2.5 ML AMPUL.NEB NEB ONE (16:30)
[2022-08-25] MEDS ORDERED: ALBUTEROL FS 2.5 MG/0.5 ML VIAL.NEB NEB SCH (16:30)
--- NOTE | 2022-08-25 16:30 | NUR ---
ms rn had sob, called dr. mendez w/ order to have breathing tx at this time.
--- NOTE | 2022-08-25 17:27 | NUR ---
ms rn patient is better now ,will monitor patient ,all needs attended.
--- NOTE | 2022-08-25 19:37 | NUR ---
TECHNICAL SALES SUPPORT MANAGER OPENING NOTES PATIENT AWAKE IN BED IS A/OX4 ABLE TO MAKE NEEDS KNOWN, ON TELE MONITOR READING SR-7OS ON 3L OF OXYGEN VIA NASAL CANNULA TOLERATING WELL. PT NOTED WITH VALLES CATH DRAINING YELLOW URINE TOLERATING WELL.BED IN LOW POSITION CALL LIGHTS WITHIN REACH, NO COMPLAIN OF PAIN AND DISCOMFORT AT THIS TIME. PATIENT KEPT CLEAN AND DRY ALL NEEDS MET.
[2022-08-25 20:01] VITALS: BP 107/60
--- NOTE | 2022-08-25 21:39 | NUR ---
RN NOTE PT ASLEEP WOKEN UP TO GIVE MEDS PER PT REQUESTS MEDS BE GIVEN LATER PT STATED ' I AM EXHAUSTED I HAD A VERY HARD DAY TODAY, I JUST WANT TO REST COME BACK LATER". WILL ATTEMPT AGAIN LATER.
[2022-08-25] MEDS: LIDOCAINE 5% (PATCH) 1 EA PATCH TP SCH (22:00)
--- NOTE | 2022-08-25 22:20 | NUR ---
RN NOTE PT IN DEEP SLEEP AT THIS TIME EASILY WOKEN UP BUT FALLS ASLEEP QUICKLY AFTER A FEW SECS NOT SAFE TO ADMINISTER MEDS. PT NOTED IN NO DISTRESS OR PAIN NO COUGHING NOTED. REMAISN ON 3L VIA NASAL CANNULA TOLERATING WELL.
[2022-08-26] VITALS: BP_SYST 110; BP_SYST 119; BP_DIAS 69
[2022-08-26] MEDS: IPRATROPIUM NEB FS 0.5 MG/2.5 ML AMPUL.NEB NEB SCH ×4 (00:36→20:02)
[2022-08-26] MEDS: ALBUTEROL FS 2.5 MG/3 ML VIAL.NEB NEB SCH ×4 (00:36→20:02)
[2022-08-26] MEDS: CEFTRIAXONE 2 G in IV NS 0.9% 100 ML IV SCH (00:45)
[2022-08-26] MEDS: GUAIFENESIN/D-METHORPHAN HB 5 ML UDC PO PRN (03:36)
[2022-08-26] MEDS: ALPRAZOLAM 1 MG TABLET PO PRN ×2 (03:43→21:59)
--- NOTE | 2022-08-26 03:43 | NUR ---
RN NOTE PT REPORTING ANXIETY REQUESTED PRN XANAX. MEDICATION GIVEN AND TOLERATED WELL.
[2022-08-26 04:00] VITALS: BP 110/69
[2022-08-26] MEDS: methylPREDNISolone SOD SUCC 40 MG/ML VIAL IV SCH ×3 (05:04→21:48)
--- NOTE | 2022-08-26 06:46 | NUR ---
SR TECHNICAL SALES CONSULTANT CLOSING NOTES PATIENT ASLEEP IN BED IS A/OX4 ABLE TO MAKE NEEDS KNOWN, ON TELE MONITOR READING SR-7OS ON 3L OF OXYGEN VIA NASAL CANNULA TOLERATING WELL. PT NOTED WITH VALLES CATH DRAINING YELLOW URINE 900 DURING SHIFT TOLERATING WELL.BED IN LOW POSITION CALL LIGHTS WITHIN REACH, NO COMPLAIN OF PAIN AND DISCOMFORT AT THIS TIME. PATIENT KEPT CLEAN AND DRY ALL NEEDS MET. SAFETY MEASURES FOLLOWED AT ALL TIMES HOB ELEVATED. WILL ENDORSE CARE TO DAY SHIFT NURSE.
[2022-08-26 07:47] LABS: CALCIUM, SERUM 8.8 mg/dL (8.5-10.1); CREATININE 0.8 mg/dL (0.6-1.3); POTASSIUM 4.3 mmol/L (3.5-5.1)
--- NOTE | 2022-08-26 07:59 | NUR ---
SALES REPRESENTATIVE METALS OPENING NOTES: RECEIVED PATIENT AWAKE; A/OX4 ABLE TO MAKE NEEDS KNOWN. NO COMPLAIN OF PAIN AND DISCOMFORT AT THIS TIME. IV ACCESS AT R HAND #20, SL, PATENT, INTACT. CURRENTLY RECEIVING BREATHING TREATMENT. TELE MONITOR READING SR-76; ON 3L OF OXYGEN VIA NASAL CANNULA TOLERATING WELL. VALLES CATH DRAINING CLEAR YELLOW URINE NOTED. SAFETY MEASURES IMPLEMENTED, BED IN LOW POSITION CALL LIGHT AND TABLE WITHIN REACH; WILL CONT WITH PLAN OF CARE DURING SHIFT.
[2022-08-26 08:00] VITALS: BP 112/68
[2022-08-26] MEDS: GUAIFENESIN LA 600 MG TABLET.SA PO SCH ×2 (09:01→21:47)
[2022-08-26] MEDS: PANTOPRAZOLE 40 MG TABLET.DR PO SCH (09:02)
[2022-08-26] MEDS: ASPIRIN EC 81 MG TABLET.DR PO SCH (09:02)
[2022-08-26] MEDS: NIFEdipine XL (30MG) 30 MG TAB PO SCH (09:02)
[2022-08-26] MEDS: ATORVASTATIN 40 MG TABLET PO SCH (09:02)
[2022-08-26] MEDS: APIXABAN 5 MG TABLET PO SCH ×2 (09:04→17:00)
[2022-08-26] MEDS: ENSURE ENLIVE CHOC 237 ML CAN PO SCH ×3 (09:04→17:34)
[2022-08-26] MEDS: HYDROCODONE/APAP 10/325MG TABLET PO PRN ×2 (09:25→15:04)
--- NOTE | 2022-08-26 15:04 | NUR ---
RN NOTES: PT ASKED FOR PAIN MGT FOR L EXTREMITY; S/P BKA, PT STATES PAIN LEVEL 7/10, WILL MEDICATE ORDERED
[2022-08-26 16:00] VITALS: BP 115/62
[2022-08-26] MEDS: ACETYLCYSTEINE 10% SOLN 400 MG/4 ML VIAL NEB SCH (16:05)
--- NOTE | 2022-08-26 17:00 | NUR ---
RN NOTES; PT REFUSED APIXIBAN, STATES HIS IV ACCESS IS BLEEDING. RN ASSESS IV ACCESS, IV WAS PULLED OUT WHILE EATING DINNER, CLEANED SITE, REMOVED IV, WILL REINSERT AFTER PT'S DINNER.
--- NOTE | 2022-08-26 19:12 | NUR ---
MS RN CLOSING NOTES: PATIENT AWAKE; A/OX4 ABLE TO MAKE NEEDS KNOWN. ON 3L OF OXYGEN VIA NASAL CANNULA TOLERATING WELL, NO S/S OF SOB. IV ACCESS REINSERTED, R HAND #22, SL, FLUSHING WELL, INTACT AND PATENT. VALLES CATH DRAINING YELLOW URINE, OUPUT= 1000 CC DURING SHIFT. ALL MEDS GIVEN, PAIN MGT, ADMINISTERED ORDERED, KEPT PT CLEAN, DRY AND COMFORTABLE. SAFETY MEASURES IN PLACE; CALL LIGHT AND TABLE WITHIN EASY REACH, WILL ENDORSE O PM SHIFT.
--- NOTE | 2022-08-26 19:39 | NUR ---
MS RN OPENING NOTES: RECEIVED PATIENT AWAKE; A/OX4 ABLE TO MAKE NEEDS KNOWN. ON 3L OF OXYGEN VIA NASAL CANNULA TOLERATING WELL, NO S/S OF SOB. IV ACCESS ON RIGHT HAND #22, SL, FLUSHING WELL, INTACT AND PATENT. PATIENT WITH VALLES CATH DRAINING YELLOW URINE. SAFETY MEASURES IN PLACE; BED IS LOCKED AND IN LOWEST POSITION, CALL LIGHT AND TABLE WITHIN EASY REACH.
[2022-08-26 20:00] VITALS: BP 113/70
[2022-08-26] MEDS: PANTOPRAZOLE 40 MG VIAL IV SCH (21:47)
[2022-08-26] MEDS: LIDOCAINE 5% (PATCH) 1 EA PATCH TP SCH (21:50)
[2022-08-27] MEDS ORDERED: CEFTRIAXONE 1 G VIAL ONE ×2 (01:52→01:54)
[2022-08-27] MEDS: CEFTRIAXONE 2 G in IV NS 0.9% 100 ML IV SCH ×2 (01:58→23:54)
[2022-08-27] MEDS: IPRATROPIUM NEB FS 0.5 MG/2.5 ML AMPUL.NEB NEB SCH ×4 (02:05→20:30)
[2022-08-27] MEDS: ALBUTEROL FS 2.5 MG/3 ML VIAL.NEB NEB SCH ×4 (02:05→20:30)
[2022-08-27] MEDS: ACETYLCYSTEINE 10% SOLN 400 MG/4 ML VIAL NEB SCH ×4 (02:05→22:57)
[2022-08-27] MEDS: HYDROCODONE/APAP 10/325MG TABLET PO PRN ×3 (02:18→14:48)
[2022-08-27] MEDS: methylPREDNISolone SOD SUCC 40 MG/ML VIAL IV SCH ×3 (05:24→20:35)
[2022-08-27 06:21] LABS: BASOPHILS % (AUTO) 0.1 % (0.0-2.0); HEMATOCRIT 37 % (39-51); HEMOGLOBIN 12.1 g/dL (13.5-17.5); LYMPHOCYTES # (AUTO) 0.4 K/uL (0.8-4.8); LYMPHOCYTES % (AUTO) 4.4 % (20.0-44.0); MEAN CORPUSCULAR HGB CONC 33 g/dl (31.0-36.0); MEAN CORPUSCULAR VOLUME 88 fL (80-96); MONOCYTES # (AUTO) 0.8 K/uL (0.1-1.30); MONOCYTES % (AUTO) 7.8 % (2.0-12.0); NEUTROPHILS # (AUTO) 8.5 K/uL (1.8-8.9); NEUTROPHILS % (AUTO) 87.7 % (43.0-81.0); PLATELET COUNT (AUTO) 77 K/uL (150-450); RED BLOOD CELL COUNT(AUTO) 4.26 MIL/uL (4.5-6.0); WHITE BLOOD COUNT (AUTO) 9.7 K/uL (4.3-11.0)
[2022-08-27 06:38] LABS: CALCIUM, SERUM 8.5 mg/dL (8.5-10.1); CREATININE 0.9 mg/dL (0.6-1.3); POTASSIUM 4.3 mmol/L (3.5-5.1)
--- NOTE | 2022-08-27 07:03 | NUR ---
RN CLOSING NOTES PATIENT AWAKE; A/OX4 ABLE TO MAKE NEEDS KNOWN. ON 3L OF OXYGEN VIA NASAL CANNULA TOLERATING WELL, NO S/S OF SOB. IV ACCESS ON RIGHT HAND #22, SL, FLUSHING WELL, INTACT AND PATENT. PATIENT WITH VALLES CATH DRAINING YELLOW URINE OUTPUT OF 670CC. SAFETY MEASURES IN PLACE; BED IS LOCKED AND IN LOWEST POSITION, CALL LIGHT AND TABLE WITHIN EASY REACH. WILL ENDORSE TO NEXT SHIFT FOR CONTINUITY OF CARE. Addendum: 08/27/22 at 0708 by LAURA VAZQUEZ RN RN CLOSING NOTES PATIENT AWAKE; A/OX4 ABLE TO MAKE NEEDS KNOWN. ON 3L OF OXYGEN VIA NASAL CANNULA TOLERATING WELL, NO S/S OF SOB. IV ACCESS ON RIGHT HAND #22, SL, FLUSHING WELL, INTACT AND PATENT. PATIENT WITH VALLES CATH DRAINING YELLOW URINE OUTPUT OF 670CC. ALL DUE MEDICATIONS ARE GIVEN. ALL NEEDS ARE MET. SAFETY MEASURES IN PLACE; BED IS LOCKED AND IN LOWEST POSITION, CALL LIGHT AND TABLE WITHIN EASY REACH. WILL ENDORSE TO NEXT SHIFT FOR CONTINUITY OF CARE.
[2022-08-27 08:00] VITALS: BP 123/71
--- NOTE | 2022-08-27 08:01 | NUR ---
MS RN OPENING NOTES: RECEIVED PATIENT AWAKE; A/OX4 ABLE TO MAKE NEEDS KNOWN, DENIES PAIN AND THIS TIME. IV ACCESS AT R HAND #22, SL, PATENT, INTACT. CURRENTLY RECEIVING BREATHING TREATMENT, O2 SET @ 3LPM VIA NC. VALLES CATH DRAINING CLEAR DARK, YELLOW URINE NOTED. SAFETY MEASURES IMPLEMENTED, BED IN LOW POSITION CALL LIGHT AND TABLE WITHIN REACH; WILL CONT WITH PLAN OF CARE DURING SHIFT.
[2022-08-27] MEDS: APIXABAN 5 MG TABLET PO SCH ×2 (09:00→17:00)
[2022-08-27] MEDS: PANTOPRAZOLE 40 MG VIAL IV SCH ×2 (09:13→20:35)
[2022-08-27] MEDS: NIFEdipine XL (30MG) 30 MG TAB PO SCH (09:14)
[2022-08-27] MEDS: GUAIFENESIN LA 600 MG TABLET.SA PO SCH ×2 (09:14→20:35)
[2022-08-27] MEDS: ASPIRIN EC 81 MG TABLET.DR PO SCH (09:14)
[2022-08-27] MEDS: ENSURE ENLIVE CHOC 237 ML CAN PO SCH ×3 (09:14→17:43)
[2022-08-27] MEDS: ATORVASTATIN 40 MG TABLET PO SCH (09:14)
[2022-08-27 11:17] LABS: ABG BASE EXCESS 4.5 mmol/L; ABG PCO2 48.1 mmHg (35.0-45.0); ABG PH 7.412 (7.350-7.450); ABG PO2 96.8 mmHg (75.0-100.0); COHb 0.6 % (0.5-1.5); MetHb 0.4 % (0.0-1.5); O2Hb 96.6 % (94.0-97.0); SITE, ABG Right Radial; VENT MODE, BG NASAL CANNULA
[2022-08-27 13:30] LABS: BAND % (MANUAL) 7 % (0.0-5.0); BASOPHILS % (MANUAL) 0 % (0.0-2.0); EOSINOPHILS % (MANUAL) 0 % (0-4); LYMPHOCYTES % (MANUAL) 5 % (16-48); MONOCYTES % (MANUAL) 9 % (0-11.0); NEUTROPHILS % (MANUAL) 79 (42-76)
[2022-08-27] MEDS: GUAIFENESIN/D-METHORPHAN HB 5 ML UDC PO PRN (14:48)
[2022-08-27 16:00] VITALS: BP 123/71
[2022-08-27 17:14] LABS: BILIRUBIN,URINE NEGATIVE (NEGATIVE); COLOR,URINE YELLOW (YELLOW); LEUKOCYTE ESTERASE ,URINE NEGATIVE (NEGATIVE); NITRITE, URINE NEGATIVE (NEGATIVE); PROTEIN,URINE NEGATIVE (NEGATIVE); UGLUCOSE NEGATIVE (NEGATIVE); UROBILINOGEN,URINE 0.2 EU/dL (0.2)
[2022-08-27 17:22] LABS: RBC,URINE 51-80 /HPF (0-2)
[2022-08-27 17:23] LABS: BACTERIA,URINE None seen /HPF (None Seen); SQUAMOUS EPITHELIAL CELL,UR 0-2 /HPF (None Seen); WBC,URINE 0-2 /HPF (0-3)
--- NOTE | 2022-08-27 19:00 | NUR ---
RN OPENING NOTES PATIENT IS AWAKE, A/O X 4. PT ABLE TO MAKE NEEDS KNOWNS.PT IN NASAL CANULA OF 1L O2, TOLERATING WELL. BREATHING EVEN AND UNLABORED AT THIS TIME. PT IV ACCESS ON RIGHT HAND #22G, PATENT, INTACT AND FLUSHES WELL WITH NO S/S OF INFLITRATION. ON IV SITE. PT IS ON VALLES CATHETER IN PLACE DRAINING YELLOW URINE. SAFETY MEASURES IS IN PLACE. BED PLACED IN LOWEST AND LOCKED POSITION, SIDE RAILS UP BY 2X, BEDSIDE TABLE AND CALL LIGHT IS EASY REACH. BED ALARM IS ON. WILL CONTINUE TO MONITOR PT ACCORDINGLY.
[2022-08-27 20:22] VITALS: BP 135/72
[2022-08-27] MEDS: ALPRAZOLAM 1 MG TABLET PO PRN (21:08)
[2022-08-27] MEDS: LIDOCAINE 5% (PATCH) 1 EA PATCH TP SCH (21:09)
[2022-08-28] MEDS: IPRATROPIUM NEB FS 0.5 MG/2.5 ML AMPUL.NEB NEB SCH ×5 (01:23→19:41)
[2022-08-28] MEDS: ALBUTEROL FS 2.5 MG/3 ML VIAL.NEB NEB SCH ×5 (01:23→19:41)
[2022-08-28 03:51] VITALS: BP 135/72
[2022-08-28] MEDS: methylPREDNISolone SOD SUCC 40 MG/ML VIAL IV SCH ×3 (05:15→21:10)
--- NOTE | 2022-08-28 06:40 | NUR ---
RN CLOSING NOTES PATIENT IS ASLEEP, A/O X 4. PT ABLE TO MAKE NEEDS KNOWN.PT IN NASAL CANULA OF 1L O2, TOLERATING WELL. BREATHING EVEN AND UNLABORED AT THIS TIME. PT IV ACCESS ON RIGHT HAND #22G, PATENT, INTACT AND FLUSHES WELL WITH NO S/S OF INFILTRATION. ON IV SITE. PT IS ON VALLES CATHETER IN PLACE DRAINING YELLOW URINE. MEDICATION ADMINISTERED ACCORDINGLY. SAFETY MEASURES IS IN PLACE. BED PLACED IN LOWEST AND LOCKED POSITION, SIDE RAILS UP BY 2X, BEDSIDE TABLE AND CALL LIGHT IS EASY REACH. BED ALARM IS ON. WILL ENDORSE TO THE NEXT SHIFT FOR CONTINUITY OF CARE.
[2022-08-28 07:00] VITALS: BP 125/72
--- NOTE | 2022-08-28 07:30 | NUR ---
RN OPENING NOTE RECEIVED PATIENT IN BED ASLEEP, EASILY AWAKENED. A/OX4, VERBALLY RESPONSIVE AND ABLE TO MAKE NEEDS KNOWN. NO SIGNS OF ACUTE DISTRESS NOTED. ON O2 @1LPM VIA N/C, SPO2 @94%. DENIES ANY SOB, BREATHING EVEN AND UNLABORED. NOTED WITH IV ACCESS ON RIGHT HAND #22G, SALINE LOCKED. WITH F/C INTACT, DRAINING YELLOW COLORED URINE VIA GRAVITY. SAFETY MEASURE IN PLACE. BED IN LOW AND LOCKED POSITION, SIDE RAILS UP X2, CALL LIGHT PLACED WITHIN EASY REACH. WILL CONTINUE TO MONITOR PATIENT.
[2022-08-28] MEDS: ENSURE ENLIVE CHOC 237 ML CAN PO SCH ×3 (08:36→16:54)
[2022-08-28] MEDS: ASPIRIN EC 81 MG TABLET.DR PO SCH (08:40)
[2022-08-28] MEDS: GUAIFENESIN LA 600 MG TABLET.SA PO SCH ×2 (08:41→21:10)
[2022-08-28] MEDS: PANTOPRAZOLE 40 MG VIAL IV SCH ×2 (08:41→21:10)
[2022-08-28] MEDS: ATORVASTATIN 40 MG TABLET PO SCH (08:41)
[2022-08-28] MEDS: APIXABAN 5 MG TABLET PO SCH ×2 (08:42→16:28)
[2022-08-28] MEDS: NIFEdipine XL (30MG) 30 MG TAB PO SCH (08:42)
[2022-08-28] MEDS: HYDROCODONE/APAP 10/325MG TABLET PO PRN ×2 (08:46→18:06)
[2022-08-28] MEDS: ACETYLCYSTEINE 10% SOLN 400 MG/4 ML VIAL NEB SCH ×2 (09:35→15:01)
[2022-08-28 16:00] VITALS: BP 122/70
--- NOTE | 2022-08-28 18:43 | NUR ---
RN CLOSING NOTE PATIENT IN BED AWAKE. A/OX4, VERBALLY RESPONSIVE AND ABLE TO MAKE NEEDS KNOWN. NO SIGNS OF ACUTE DISTRESS NOTED. REMAINS ON O2 @1LPM VIA N/C. NOTED WITH SOB ON EXERTION AND STILL WITH OCCASIONAL COUGH. WITH IV ACCESS ON RIGHT HAND #22G, SALINE LOCKED. WITH F/C INTACT, DRAINING YELLOW COLORED URINE VIA GRAVITY. ALL DUE MEDS GIVEN, TOLERATED WELL. SAFETY MEASURE MAINTAINED. BED IN LOW AND LOCKED POSITION, SIDE RAILS UP X2, CALL LIGHT PLACED WITHIN EASY REACH. WILL ENDORSE TO NEXT SHIFT FOR CONTINUITY OF CARE.
--- NOTE | 2022-08-28 19:45 | NUR ---
MS RN OPENING NOTE PATIENT AWAKE IN BED, ALERT/ORIENTED X 4, PT ABLE TO MAKE NEEDS KNOWN. PATIENT ON 1 LPM OF O2, PATIENT BECOMES LABORED WHEN TALKING, SPO2 95%, DUE FOR BREATHING TX SOON. PATIENT STILL C/O OF 6/10 LEFT LEG PHANTOM PAIN AT AMPUTATION SITE, STATES PAIN IS CONSTANT DESPITE NORCO 10-325 GIVEN A LITTLE OVER AN HOUR AGO. IV ACCESS ON RIGHT HAND #22G INTACT AND SALINE LOCKED. VALLES CATHETER IN PLACE AND DRAINING YELLOW URINE BY GRAVITY. SAFETY MEASURES IN PLACE: CALL LIGHT WITHIN REACH, SIDE RAILS UP X 3, BED LOCKED IN LOWEST POSITION, HOB ELEVATED, BED ALARM ON. WILL CONTINUE TO MONITOR PATIENT
[2022-08-28 20:00] VITALS: BP 139/69
[2022-08-28] MEDS: LIDOCAINE 5% (PATCH) 1 EA PATCH TP SCH (21:10)
[2022-08-28] MEDS: ALPRAZOLAM 1 MG TABLET PO PRN (22:32)
[2022-08-29] MEDS: CEFTRIAXONE 2 G in IV NS 0.9% 100 ML IV SCH (00:01)
[2022-08-29] MEDS: ALBUTEROL FS 2.5 MG/3 ML VIAL.NEB NEB SCH ×3 (01:32→13:44)
[2022-08-29] MEDS: ACETYLCYSTEINE 10% SOLN 400 MG/4 ML VIAL NEB SCH ×3 (01:32→13:44)
[2022-08-29] MEDS: IPRATROPIUM NEB FS 0.5 MG/2.5 ML AMPUL.NEB NEB SCH ×3 (01:32→13:43)
[2022-08-29] MEDS: methylPREDNISolone SOD SUCC 40 MG/ML VIAL IV SCH ×2 (05:10→12:05)
--- NOTE | 2022-08-29 06:41 | NUR ---
MS RN CLOSING NOTE PATIENT SLEEPING IN BED, EASILY AWAKENED, ALERT/ORIENTED X 4, PT ABLE TO MAKE NEEDS KNOWN. PATIENT ON 1 LPM OF O2, PATIENT BECOMES LABORED WHEN TALKING AND SOME WHEEZING AT TIMES, HOWEVER SPO2 MAINTAINED > 92% ALL SHIFT. IV ACCESS ON RIGHT HAND #22G INTACT AND SALINE LOCKED. VALLES CATHETER IN PLACE AND DRAINING LIZETT URINE BY GRAVITY, 1000 ML OUTPUT. MEDICATIONS GIVEN ORDERED, PT NEEDS MET THROUGHOUT SHIFT. SAFETY MEASURES IN PLACE: CALL LIGHT WITHIN REACH, SIDE RAILS UP X 3, BED LOCKED IN LOWEST POSITION, HOB ELEVATED, BED ALARM ON. WILL ENDORSE TO DAYSHIFT RN FOR CONTINUITY OF CARE
[2022-08-29 07:00] VITALS: BP 122/72
--- NOTE | 2022-08-29 07:05 | NUR ---
MS RN OPENING NOTE PATIENT STILL SLEEPING IN BED BUT EASILY AWAKENED UPON CALLING HIS NAME, ALERT/ORIENTED X 4, PT ABLE TO MAKE NEEDS KNOWN. PATIENT ON 1 LPM OF O2, IV ACCESS ON RIGHT HAND #22G INTACT AND SALINE LOCKED. VALLES CATHETER IN PLACE AND DRAINING YELLOW URINE BY GRAVITY. SAFETY MEASURES IN PLACE: CALL LIGHT WITHIN REACH, SIDE RAILS UP X 3, BED LOCKED IN LOWEST POSITION, HOB ELEVATED, BED ALARM ON. WILL CONTINUE TO MONITOR THE PATIENT
[2022-08-29] MEDS: ASPIRIN EC 81 MG TABLET.DR PO SCH (08:21)
[2022-08-29] MEDS: PANTOPRAZOLE 40 MG VIAL IV SCH (08:21)
[2022-08-29] MEDS: ATORVASTATIN 40 MG TABLET PO SCH (08:22)
[2022-08-29] MEDS: GUAIFENESIN LA 600 MG TABLET.SA PO SCH (08:22)
[2022-08-29 08:23] VITALS: BP 122/72
[2022-08-29] MEDS: NIFEdipine XL (30MG) 30 MG TAB PO SCH (08:23)
[2022-08-29] MEDS: APIXABAN 5 MG TABLET PO SCH (08:26)
[2022-08-29] MEDS: ENSURE ENLIVE CHOC 237 ML CAN PO SCH ×2 (08:29→12:02)
[2022-08-29] MEDS: HYDROCODONE/APAP 10/325MG TABLET PO PRN (09:17)
[2022-08-29] MEDS: ALPRAZOLAM 1 MG TABLET PO PRN (12:09)
--- NOTE | 2022-08-29 15:10 | NUR ---
MS CLIENT ANALYST NOTE DISCHARGE PATIENT TO [facility] IN STABLE CONDITION. A/O X4 ABLE TO MAKE NEEDS KNOWN. PATIENT IS BREATHING EVENLY AND UNLABORED ON 1 L O2 SATURATING AT 95%, NO COMPLAINS OF PAIN, AT THIS TIME. DISCHARGE INSTRUCTIONS WAS RELAYED TO [facility] BOTH VERBALLY AND IN WRITING WELL US WITH THE PATIENT AND EMT'S ALL BELONGINGS WERE ACCOUNTED FOR; VALLES CATHETER KEPT, CLEAN AND INTACT, IV ACCESS REMOVED, CATHETER TIP INTACT, PRESSURE DRESSING APPLIED, NO SIGNS OF BLEEDING. PATIENT LEFT IN STABLE CONDITION VIA GURNEY, WITH EXIT FOLDER HANDED TO EMT'S. PATIENT LEFT AT 1504, CHARGE NURSE AWARE OF THE DISCHARGE.
== END 2022-08-29 15:05 | DRG 189 ==
LOC: ER 13:16 → TELE 19:54 → MED 08-26 10:22
PROVIDERS: ADMIT Nurse Practitioner Acute Care; ATTEND Nurse Practitioner Acute Care
DX: J96.20 Acute and chronic respiratory failure, unspecified whether with hypoxia or hypercapnia (principal); E44.0 Moderate protein-calorie malnutrition; J44.1 Chronic obstructive pulmonary disease with (acute) exacerbation; D68.59 Other primary thrombophilia; E87.1 Hypo-osmolality and hyponatremia; R64 Cachexia; J44.0 Chronic obstructive pulmonary disease with (acute) lower respiratory infection; J20.9 Acute bronchitis, unspecified; I10 Essential (primary) hypertension; I25.10 Atherosclerotic heart disease of native coronary artery without angina pectoris; Z20.822 Contact with and (suspected) exposure to COVID-19; Z95.5 Presence of coronary angioplasty implant and graft; Z99.81 Dependence on supplemental oxygen; E78.5 Hyperlipidemia, unspecified; I25.2 Old myocardial infarction; Z85.46 Personal history of malignant neoplasm of prostate; Z89.512 Acquired absence of left leg below knee; M10.9 Gout, unspecified; B19.20 Unspecified viral hepatitis C without hepatic coma; Z79.51 Long term (current) use of inhaled steroids; Z79.01 Long term (current) use of anticoagulants; Z79.82 Long term (current) use of aspirin; E78.00 Pure hypercholesterolemia, unspecified; Z79.899 Other long term (current) drug therapy; K21.9 Gastro-esophageal reflux disease without esophagitis; M06.9 Rheumatoid arthritis, unspecified; I27.20 Pulmonary hypertension, unspecified; I73.9 Peripheral vascular disease, unspecified; T36.8X5A Adverse effect of other systemic antibiotics, initial encounter; Y92.9 Unspecified place or not applicable; Z87.891 Personal history of nicotine dependence; Z89.612 Acquired absence of left leg above knee; E87.5 Hyperkalemia; F19.11 Other psychoactive substance abuse, in remission; R79.89 Other specified abnormal findings of blood chemistry; Z74.09 Other reduced mobility
CPT/HCPCS: 36415; 36600; 70220-TC; 71045-TC; 80048-TC; 80053-TC; 81001; 83735-TC; 83880; 84100-TC; 84484-TC; 85025-TC; 87081-TC; 93307-TC; 94799-TC; 97110-TC; 97530-TC; A4216; A4223; C9113; C9803; G0378; J0696; J1200; J1720; J1953; J1956; J2920; J2930; J3475; J7030; J7040

== ENCOUNTER 2022-11-24 16:28 | Inpatient (IN) | payer MEDICARE, OTHER ==
[~2022-11-24] VITALS: Ht 177.8 cm; Wt 57.6 kg
[~2022-11-24 16:28] MED LIST changes: +ALBU18HF2 IH; -AMOX-430 PO; +MULT-447 PO; -OFLO5DRO5 LEFT EAR; -TIOT18CA3 IH
[2022-11-24 17:51] LABS: BASOPHILS % (AUTO) 0.4 % (0.0-2.0); EOSINOPHILS % (AUTO) 0.2 % (0.0-6.0); HEMATOCRIT 39 % (39-51); HEMOGLOBIN 12.4 g/dL (13.5-17.5); LYMPHOCYTES # (AUTO) 0.6 K/uL (0.8-4.8); MEAN CORPUSCULAR HGB CONC 32 g/dl (31.0-36.0); MEAN CORPUSCULAR VOLUME 84 fL (80-96); MONOCYTES # (AUTO) 1.4 K/uL (0.1-1.30); MONOCYTES % (AUTO) 13.5 % (2.0-12.0); NEUTROPHILS # (AUTO) 8.5 K/uL (1.8-8.9); NEUTROPHILS % (AUTO) 79.9 % (43.0-81.0); PLATELET COUNT (AUTO) 107 K/uL (150-450); RED BLOOD CELL COUNT(AUTO) 4.64 MIL/uL (4.5-6.0); WHITE BLOOD COUNT (AUTO) 10.6 K/uL (4.3-11.0)
[2022-11-24] MEDS ORDERED: predniSONE 20 MG TABLET ONE (17:59)
[2022-11-24] MEDS ORDERED: IPRATROPIUM NEB FS 0.5 MG/2.5 ML AMPUL.NEB NEB ONE (18:00)
[2022-11-24] MEDS ORDERED: ALBUTEROL FS 2.5 MG/3 ML VIAL.NEB NEB ONE ×2 (18:00→21:30)
[2022-11-24] MEDS ORDERED: predniSONE 20 MG TABLET PO ONE (18:00)
[2022-11-24 18:03] LABS: CALCIUM, SERUM 8.9 mg/dL (8.5-10.1); CARBON DIOXIDE 32 mmol/L (21-32); CHLORIDE 105 mmol/L (98-107); CREATININE 0.9 mg/dL (0.6-1.3); GLUCOSE 109 mg/dL (74-106); POTASSIUM 4.1 mmol/L (3.5-5.1); SODIUM SERUM 141 mmol/L (136-145); UREA NITROGEN, BLOOD 15 mg/dL (7-18)
[2022-11-24] MEDS ORDERED: IPRATROPIUM NEB FS 0.5 MG/2.5 ML AMPUL.NEB ONE (18:03)
[2022-11-24] MEDS ORDERED: ALBUTEROL FS 2.5 MG/3 ML VIAL.NEB ONE ×2 (18:03→21:57)
[2022-11-24 18:08] LABS: ALANINE AMINOTRANSFERASE 32 U/L (12-78); ALBUMIN 3.5 g/dL (3.4-5.0); ALKALINE PHOSPHATASE 104 U/L (46-116); ASPARTATE AMINOTRANSFERASE 24 U/L (15-37); BILIRUBIN,DIRECT 0.1 mg/dL (0.0-0.2); BILIRUBIN,TOTAL 0.5 mg/dL (0.2-1.0); TOTAL PROTEIN, SERUM 6.7 g/dL (6.4-8.2)
[2022-11-24] MEDS ORDERED: MORPHINE SULFATE INJ 2 MG/ML DISP.SYRIN ONE (20:43)
[2022-11-24] MEDS ORDERED: MORPHINE SULFATE INJ 2 MG/ML DISP.SYRIN IV ONE (21:00)
[2022-11-24] MEDS ORDERED: CEFTRIAXONE 1GM BAG (ER ONLY) 1 GM/50 ML PIGGYBACK IV ONE (21:30)
[2022-11-24] MEDS ORDERED: Z GUARD REMEDY 4 OZ OINT TP PRN (23:30)
[2022-11-24] MEDS ORDERED: MAG HYDROX/AL HYDROX/SIMETH 30 ML UDC PO PRN (23:30)
[2022-11-24] MEDS ORDERED: ALBUTEROL SULFATE 8 GM HFA.AER.AD IH PRN (23:30)
[2022-11-24] MEDS ORDERED: ONDANSETRON HCL/PF 4 MG/2 ML VIAL IVP PRN (23:30)
[2022-11-24] MEDS ORDERED: CEFTRIAXONE 1GM BAG (ER ONLY) 50 ML IV ONE (23:59)
[2022-11-25] MEDS ORDERED: IPRATROPIUM NEB FS 0.5 MG/2.5 ML AMPUL.NEB NEB PRN
[2022-11-25] MEDS ORDERED: AZITHROMYCIN 500 MG in IV D5W 250 ML IV ONE ×2
[2022-11-25] MEDS ORDERED: AZITHROMYCIN 500 MG VIAL ONE (00:24)
[2022-11-25 02:00] VITALS: BP 110/70
[2022-11-25] MEDS: ALBUTEROL FS 2.5 MG/0.5 ML VIAL.NEB NEB PRN (03:22)
[2022-11-25 04:00] VITALS: BP 105/53
[2022-11-25] MEDS: methylPREDNISolone SOD SUCC 40 MG/ML VIAL IV SCH ×3 (04:41→21:22)
[2022-11-25] MEDS: HYDROCODONE/APAP 10/325MG TABLET PO PRN ×3 (04:43→22:05)
[2022-11-25 05:58] LABS: BASOPHILS # (AUTO) 0.1 K/uL (0.0-0.2); BASOPHILS % (AUTO) 1.1 % (0.0-2.0); EOSINOPHILS % (AUTO) 0.1 % (0.0-6.0); HEMATOCRIT 36 % (39-51); HEMOGLOBIN 11.5 g/dL (13.5-17.5); LYMPHOCYTES # (AUTO) 0.3 K/uL (0.8-4.8); LYMPHOCYTES % (AUTO) 3.4 % (20.0-44.0); MEAN CORPUSCULAR HGB CONC 32 g/dl (31.0-36.0); MEAN CORPUSCULAR VOLUME 84 fL (80-96); MONOCYTES % (AUTO) 10.1 % (2.0-12.0); NEUTROPHILS # (AUTO) 8.5 K/uL (1.8-8.9); NEUTROPHILS % (AUTO) 85.3 % (43.0-81.0); PLATELET COUNT (AUTO) 109 K/uL (150-450); RED BLOOD CELL COUNT(AUTO) 4.22 MIL/uL (4.5-6.0)
[2022-11-25 06:17] LABS: CALCIUM, SERUM 8.9 mg/dL (8.5-10.1); CREATININE 0.8 mg/dL (0.6-1.3); MAGNESIUM 1.8 mg/dL (1.8-2.4); PHOSPHORUS 2.3 mg/dL (2.5-4.9); POTASSIUM 3.8 mmol/L (3.5-5.1)
[2022-11-25 08:00] VITALS: BP 105/53
[2022-11-25] MEDS: NIFEdipine XL (30MG) 30 MG TAB PO SCH ×2 (09:00→09:09)
[2022-11-25] MEDS ORDERED: FLUTICASONE/VILANTEROL 1 EACH BLST.W.DEV IH SCH (09:00)
[2022-11-25] MEDS: MULTIVIT W/MINERALS 1 TAB TABLET PO SCH (09:08)
[2022-11-25] MEDS: GABAPENTIN 300 MG CAPSULE PO SCH ×4 (09:09→21:20)
[2022-11-25] MEDS: APIXABAN 5 MG TABLET PO SCH ×2 (09:09→21:21)
[2022-11-25] MEDS: ASPIRIN EC 81 MG TABLET.DR PO SCH (09:09)
[2022-11-25] MEDS: ATORVASTATIN 40 MG TABLET PO SCH (09:10)
[2022-11-25] MEDS ORDERED: ALBUTEROL HALF STRENGTH 1.25 MG/3 ML VIAL.NEB NEB SCH (10:00)
[2022-11-25 12:00] VITALS: BP 98/62
[2022-11-25] MEDS: IPRATROPIUM NEB FS 0.5 MG/2.5 ML AMPUL.NEB NEB SCH ×2 (12:34→19:56)
[2022-11-25] MEDS: ALBUTEROL HALF STRENGTH 1.25 MG/3 ML VIAL.NEB NEB SCH ×2 (12:34→19:56)
[2022-11-25] MEDS: LEVOFLOXACIN 500 MG /D5W 100ML 100 ML IV SCH (13:24)
[2022-11-25] MEDS ORDERED: NEUTRA PHOS 1 POWD.PACKET PO ONE (14:00)
[2022-11-25 16:00] VITALS: BP 99/69
[2022-11-25 20:00] VITALS: BP 102/67
[2022-11-25] MEDS: ZOLPIDEM TARTRATE 5 MG TABLET PO PRN (23:18)
[2022-11-26] VITALS: BP 109/63
[2022-11-26 04:00] VITALS: BP 113/83
[2022-11-26] MEDS: methylPREDNISolone SOD SUCC 40 MG/ML VIAL IV SCH ×3 (04:07→21:04)
[2022-11-26] MEDS: ALBUTEROL HALF STRENGTH 1.25 MG/3 ML VIAL.NEB NEB SCH ×3 (07:50→20:15)
[2022-11-26] MEDS: IPRATROPIUM NEB FS 0.5 MG/2.5 ML AMPUL.NEB NEB SCH ×3 (07:50→20:15)
[2022-11-26 08:00] VITALS: BP 111/68
[2022-11-26] MEDS: NIFEdipine XL (30MG) 30 MG TAB PO SCH (09:35)
[2022-11-26] MEDS: ASPIRIN EC 81 MG TABLET.DR PO SCH (09:38)
[2022-11-26] MEDS: ATORVASTATIN 40 MG TABLET PO SCH (09:38)
[2022-11-26] MEDS: GABAPENTIN 300 MG CAPSULE PO SCH ×4 (09:39→21:04)
[2022-11-26] MEDS: MULTIVIT W/MINERALS 1 TAB TABLET PO SCH (09:39)
[2022-11-26] MEDS: APIXABAN 5 MG TABLET PO SCH ×2 (09:44→21:06)
[2022-11-26] MEDS: MAGNESIUM HYDROXIDE 30 ML UDC PO PRN (10:07)
[2022-11-26] MEDS: LEVOFLOXACIN 500 MG /D5W 100ML 100 ML IV SCH (10:07)
[2022-11-26 12:00] VITALS: BP 103/59
[2022-11-26] MEDS: HYDROCODONE/APAP 10/325MG TABLET PO PRN (15:08)
[2022-11-26 16:00] VITALS: BP 113/68
[2022-11-26 20:00] VITALS: BP 113/72
[2022-11-26] MEDS: ZOLPIDEM TARTRATE 5 MG TABLET PO PRN (21:05)
[2022-11-27] VITALS: BP 120/72
[2022-11-27 04:00] VITALS: BP 116/78
[2022-11-27] MEDS: methylPREDNISolone SOD SUCC 40 MG/ML VIAL IV SCH ×3 (05:13→21:20)
[2022-11-27 06:00] LABS: BASOPHILS % (AUTO) 0.1 % (0.0-2.0); HEMATOCRIT 38 % (39-51); HEMOGLOBIN 11.9 g/dL (13.5-17.5); LYMPHOCYTES # (AUTO) 0.8 K/uL (0.8-4.8); LYMPHOCYTES % (AUTO) 7.3 % (20.0-44.0); MEAN CORPUSCULAR HGB CONC 32 g/dl (31.0-36.0); MEAN CORPUSCULAR VOLUME 86 fL (80-96); MONOCYTES # (AUTO) 0.5 K/uL (0.1-1.30); MONOCYTES % (AUTO) 4.5 % (2.0-12.0); NEUTROPHILS # (AUTO) 9.8 K/uL (1.8-8.9); NEUTROPHILS % (AUTO) 88.1 % (43.0-81.0); PLATELET COUNT (AUTO) 120 K/uL (150-450); RED BLOOD CELL COUNT(AUTO) 4.37 MIL/uL (4.5-6.0); WHITE BLOOD COUNT (AUTO) 11.1 K/uL (4.3-11.0)
[2022-11-27 06:12] LABS: CALCIUM, SERUM 8.9 mg/dL (8.5-10.1); CREATININE 0.8 mg/dL (0.6-1.3); MAGNESIUM 2.3 mg/dL (1.8-2.4); PHOSPHORUS 3.9 mg/dL (2.5-4.9); POTASSIUM 4.8 mmol/L (3.5-5.1)
[2022-11-27 08:00] VITALS: BP 125/68
[2022-11-27] MEDS: ALBUTEROL HALF STRENGTH 1.25 MG/3 ML VIAL.NEB NEB SCH ×3 (08:29→20:22)
[2022-11-27] MEDS: IPRATROPIUM NEB FS 0.5 MG/2.5 ML AMPUL.NEB NEB SCH ×3 (08:29→20:22)
[2022-11-27] MEDS: NIFEdipine XL (30MG) 30 MG TAB PO SCH (09:24)
[2022-11-27] MEDS: ATORVASTATIN 40 MG TABLET PO SCH (09:25)
[2022-11-27] MEDS: MULTIVIT W/MINERALS 1 TAB TABLET PO SCH (09:25)
[2022-11-27] MEDS: ASPIRIN EC 81 MG TABLET.DR PO SCH (09:25)
[2022-11-27] MEDS: GABAPENTIN 300 MG CAPSULE PO SCH ×4 (09:25→21:20)
[2022-11-27] MEDS: APIXABAN 5 MG TABLET PO SCH ×2 (09:26→21:23)
[2022-11-27] MEDS: HYDROCODONE/APAP 10/325MG TABLET PO PRN ×2 (09:31→18:46)
[2022-11-27] MEDS: LEVOFLOXACIN 750 MG /D5W 150ML 750 MG in PREMIX 1 EA IV SCH (10:34)
[2022-11-27 12:00] VITALS: BP 107/66
[2022-11-27] MEDS: ENSURE ENLIVE CHOC 237 ML CAN PO SCH ×2 (12:01→17:22)
[2022-11-27 16:00] VITALS: BP 105/69
[2022-11-27 20:00] VITALS: BP 126/85
[2022-11-27] MEDS: ZOLPIDEM TARTRATE 5 MG TABLET PO PRN (21:20)
[2022-11-28] VITALS: BP 120/68
[2022-11-28] MEDS: ALBUTEROL FS 2.5 MG/0.5 ML VIAL.NEB NEB PRN (02:27)
[2022-11-28] MEDS: HYDROCODONE/APAP 10/325MG TABLET PO PRN ×2 (02:38→10:20)
[2022-11-28 04:00] VITALS: BP 118/73
[2022-11-28] MEDS: methylPREDNISolone SOD SUCC 40 MG/ML VIAL IV SCH ×3 (05:21→20:17)
[2022-11-28 05:49] LABS: BASOPHILS % (AUTO) 0.1 % (0.0-2.0); EOSINOPHILS % (AUTO) 0.1 % (0.0-6.0); HEMATOCRIT 35 % (39-51); HEMOGLOBIN 11.5 g/dL (13.5-17.5); LYMPHOCYTES # (AUTO) 0.5 K/uL (0.8-4.8); LYMPHOCYTES % (AUTO) 5.6 % (20.0-44.0); MEAN CORPUSCULAR HGB CONC 33 g/dl (31.0-36.0); MEAN CORPUSCULAR VOLUME 83 fL (80-96); MONOCYTES # (AUTO) 0.5 K/uL (0.1-1.30); MONOCYTES % (AUTO) 5.7 % (2.0-12.0); NEUTROPHILS # (AUTO) 7.3 K/uL (1.8-8.9); NEUTROPHILS % (AUTO) 88.5 % (43.0-81.0); PLATELET COUNT (AUTO) 118 K/uL (150-450); RED BLOOD CELL COUNT(AUTO) 4.19 MIL/uL (4.5-6.0); WHITE BLOOD COUNT (AUTO) 8.3 K/uL (4.3-11.0)
[2022-11-28 06:30] LABS: CALCIUM, SERUM 8.8 mg/dL (8.5-10.1); CARBON DIOXIDE 30 mmol/L (21-32); CHLORIDE 99 mmol/L (98-107); CREATININE 0.9 mg/dL (0.6-1.3); GLUCOSE 132 mg/dL (74-106); MAGNESIUM 1.9 mg/dL (1.8-2.4); PHOSPHORUS 3.8 mg/dL (2.5-4.9); POTASSIUM 4.6 mmol/L (3.5-5.1); SODIUM SERUM 136 mmol/L (136-145); UREA NITROGEN, BLOOD 32 mg/dL (7-18)
[2022-11-28] MEDS: ALBUTEROL HALF STRENGTH 1.25 MG/3 ML VIAL.NEB NEB SCH ×3 (07:50→19:50)
[2022-11-28] MEDS: IPRATROPIUM NEB FS 0.5 MG/2.5 ML AMPUL.NEB NEB SCH ×3 (07:50→19:50)
[2022-11-28 08:00] VITALS: BP 107/68
[2022-11-28] MEDS: ENSURE ENLIVE CHOC 237 ML CAN PO SCH ×3 (08:00→17:30)
[2022-11-28] MEDS: NIFEdipine XL (30MG) 30 MG TAB PO SCH (08:41)
[2022-11-28] MEDS: GABAPENTIN 300 MG CAPSULE PO SCH ×4 (08:54→20:16)
[2022-11-28] MEDS: ASPIRIN EC 81 MG TABLET.DR PO SCH (08:55)
[2022-11-28] MEDS: ATORVASTATIN 40 MG TABLET PO SCH (08:55)
[2022-11-28] MEDS: MULTIVIT W/MINERALS 1 TAB TABLET PO SCH (08:55)
[2022-11-28] MEDS: APIXABAN 5 MG TABLET PO SCH ×2 (08:56→20:16)
[2022-11-28] MEDS: NITROGLYCERIN 0.4 MG/TAB BOTTLE SL PRN ×2 (08:57→15:00)
[2022-11-28] MEDS: LEVOFLOXACIN 750 MG /D5W 150ML 750 MG in PREMIX 1 EA IV SCH (11:07)
[2022-11-28 12:00] VITALS: BP 114/74
[2022-11-28] MEDS ORDERED: POLYETHYLENE GLYCOL 3350 17 GM POWD.PACK PO PRN (14:00)
[2022-11-28 16:00] VITALS: BP 102/59
[2022-11-28 20:00] VITALS: BP 106/77
[2022-11-28] MEDS: ZOLPIDEM TARTRATE 5 MG TABLET PO PRN (22:00)
[2022-11-29] VITALS: BP 110/68
[2022-11-29] MEDS: HYDROCODONE/APAP 10/325MG TABLET PO PRN ×3 (00:06→22:47)
[2022-11-29 04:00] VITALS: BP 122/73
[2022-11-29] MEDS: methylPREDNISolone SOD SUCC 40 MG/ML VIAL IV SCH (05:08)
[2022-11-29 06:14] LABS: CALCIUM, SERUM 9.1 mg/dL (8.5-10.1); CARBON DIOXIDE 33 mmol/L (21-32); CHLORIDE 98 mmol/L (98-107); CREATININE 0.9 mg/dL (0.6-1.3); GLUCOSE 126 mg/dL (74-106); MAGNESIUM 2.1 mg/dL (1.8-2.4); POTASSIUM 5.2 mmol/L (3.5-5.1); SODIUM SERUM 134 mmol/L (136-145); UREA NITROGEN, BLOOD 37 mg/dL (7-18)
[2022-11-29 06:27] LABS: HEMATOCRIT 34 % (39-51); HEMOGLOBIN 11.4 g/dL (13.5-17.5); LYMPHOCYTES # (AUTO) 0.6 K/uL (0.8-4.8); LYMPHOCYTES % (AUTO) 7.4 % (20.0-44.0); MEAN CORPUSCULAR HGB CONC 33 g/dl (31.0-36.0); MEAN CORPUSCULAR VOLUME 83 fL (80-96); MONOCYTES # (AUTO) 0.6 K/uL (0.1-1.30); MONOCYTES % (AUTO) 7.4 % (2.0-12.0); NEUTROPHILS # (AUTO) 6.5 K/uL (1.8-8.9); NEUTROPHILS % (AUTO) 85.2 % (43.0-81.0); PLATELET COUNT (AUTO) 131 K/uL (150-450); RED BLOOD CELL COUNT(AUTO) 4.15 MIL/uL (4.5-6.0); WHITE BLOOD COUNT (AUTO) 7.7 K/uL (4.3-11.0)
[2022-11-29] MEDS: ENSURE ENLIVE CHOC 237 ML CAN PO SCH ×3 (07:59→17:26)
[2022-11-29 08:00] VITALS: BP 106/63
[2022-11-29] MEDS: IPRATROPIUM NEB FS 0.5 MG/2.5 ML AMPUL.NEB NEB SCH ×3 (08:03→20:27)
[2022-11-29] MEDS: ALBUTEROL HALF STRENGTH 1.25 MG/3 ML VIAL.NEB NEB SCH ×3 (08:03→20:27)
[2022-11-29] MEDS: NIFEdipine XL (30MG) 30 MG TAB PO SCH (08:29)
[2022-11-29] MEDS: ASPIRIN EC 81 MG TABLET.DR PO SCH (08:29)
[2022-11-29] MEDS: GABAPENTIN 300 MG CAPSULE PO SCH ×4 (08:30→20:31)
[2022-11-29] MEDS: MULTIVIT W/MINERALS 1 TAB TABLET PO SCH (08:30)
[2022-11-29] MEDS: ATORVASTATIN 40 MG TABLET PO SCH (08:30)
[2022-11-29] MEDS: APIXABAN 5 MG TABLET PO SCH ×2 (08:31→20:31)
[2022-11-29] MEDS: LEVOFLOXACIN 750 MG /D5W 150ML 750 MG in PREMIX 1 EA IV SCH (10:42)
[2022-11-29 12:00] VITALS: BP 110/60
[2022-11-29] MEDS ORDERED: SODIUM POLYSTYRENE SULFONATE 15 G/60 ML BOTTLE PO ONE (15:30)
[2022-11-29] MEDS: ACETAMINOPHEN 325 MG TABLET PO PRN (15:32)
[2022-11-29 16:00] VITALS: BP 113/79
[2022-11-29 20:00] VITALS: BP 107/65
[2022-11-29] MEDS: MAGNESIUM HYDROXIDE 30 ML UDC PO PRN (22:46)
[2022-11-29] MEDS: ZOLPIDEM TARTRATE 5 MG TABLET PO PRN (22:46)
[2022-11-30] VITALS: BP 113/65
[2022-11-30 04:00] VITALS: BP 106/63
[2022-11-30] MEDS: IPRATROPIUM NEB FS 0.5 MG/2.5 ML AMPUL.NEB NEB SCH ×3 (07:47→19:40)
[2022-11-30] MEDS: ALBUTEROL HALF STRENGTH 1.25 MG/3 ML VIAL.NEB NEB SCH ×3 (07:47→19:40)
[2022-11-30 08:00] VITALS: BP 116/68
[2022-11-30] MEDS: ENSURE ENLIVE CHOC 237 ML CAN PO SCH ×3 (08:34→16:52)
[2022-11-30] MEDS: ASPIRIN EC 81 MG TABLET.DR PO SCH (08:44)
[2022-11-30] MEDS: ATORVASTATIN 40 MG TABLET PO SCH (08:44)
[2022-11-30] MEDS: LEVOFLOXACIN (250MG) 250 MG TABLET PO SCH (08:44)
[2022-11-30] MEDS: MULTIVIT W/MINERALS 1 TAB TABLET PO SCH (08:44)
[2022-11-30] MEDS: GABAPENTIN 300 MG CAPSULE PO SCH ×4 (08:44→20:48)
[2022-11-30] MEDS: predniSONE 20 MG TABLET PO SCH (08:45)
[2022-11-30] MEDS: NIFEdipine XL (30MG) 30 MG TAB PO SCH (08:45)
[2022-11-30] MEDS: APIXABAN 5 MG TABLET PO SCH ×2 (08:46→20:50)
[2022-11-30] MEDS: HYDROCODONE/APAP 10/325MG TABLET PO PRN ×3 (11:29→23:57)
[2022-11-30 12:00] VITALS: BP 114/71
[2022-11-30] MEDS: GUAIFENESIN LA 600 MG TABLET.SA PO SCH ×2 (15:16→20:48)
[2022-11-30 16:00] VITALS: BP 106/57
[2022-11-30 20:00] VITALS: BP 116/65
[2022-11-30] MEDS: ZOLPIDEM TARTRATE 5 MG TABLET PO PRN (21:54)
[2022-12-01] VITALS: BP 105/62
[2022-12-01 04:00] VITALS: BP 118/67
[2022-12-01] MEDS: ALBUTEROL HALF STRENGTH 1.25 MG/3 ML VIAL.NEB NEB SCH ×3 (07:32→20:23)
[2022-12-01] MEDS: IPRATROPIUM NEB FS 0.5 MG/2.5 ML AMPUL.NEB NEB SCH ×3 (07:32→20:23)
[2022-12-01] MEDS: ENSURE ENLIVE CHOC 237 ML CAN PO SCH ×3 (08:25→17:38)
[2022-12-01] MEDS: ASPIRIN EC 81 MG TABLET.DR PO SCH (08:25)
[2022-12-01] MEDS: GUAIFENESIN LA 600 MG TABLET.SA PO SCH ×2 (08:27→21:28)
[2022-12-01] MEDS: GABAPENTIN 300 MG CAPSULE PO SCH ×4 (08:27→21:29)
[2022-12-01] MEDS: ATORVASTATIN 40 MG TABLET PO SCH (08:27)
[2022-12-01] MEDS: LEVOFLOXACIN (250MG) 250 MG TABLET PO SCH (08:27)
[2022-12-01] MEDS: predniSONE 20 MG TABLET PO SCH (08:27)
[2022-12-01] MEDS: APIXABAN 5 MG TABLET PO SCH ×2 (08:29→21:30)
[2022-12-01] MEDS: MULTIVIT W/MINERALS 1 TAB TABLET PO SCH (08:30)
[2022-12-01] MEDS: NIFEdipine XL (30MG) 30 MG TAB PO SCH (08:32)
[2022-12-01 09:45] VITALS: BP 118/66
[2022-12-01] MEDS: HYDROCODONE/APAP 10/325MG TABLET PO PRN ×2 (12:11→21:28)
[2022-12-01 12:58] VITALS: BP 100/64
[2022-12-01 16:22] VITALS: BP 102/77
[2022-12-01 20:00] VITALS: BP 114/60
[2022-12-01] MEDS: ZOLPIDEM TARTRATE 5 MG TABLET PO PRN (22:42)
[2022-12-02] VITALS: BP 112/72
[2022-12-02 04:57] VITALS: BP 114/70
[2022-12-02] MEDS: ALBUTEROL HALF STRENGTH 1.25 MG/3 ML VIAL.NEB NEB SCH ×3 (07:58→20:09)
[2022-12-02] MEDS: IPRATROPIUM NEB FS 0.5 MG/2.5 ML AMPUL.NEB NEB SCH ×3 (07:58→20:09)
[2022-12-02] MEDS: ENSURE ENLIVE CHOC 237 ML CAN PO SCH ×3 (08:25→17:04)
[2022-12-02] MEDS: MULTIVIT W/MINERALS 1 TAB TABLET PO SCH (08:25)
[2022-12-02] MEDS: GABAPENTIN 300 MG CAPSULE PO SCH ×4 (08:25→21:07)
[2022-12-02] MEDS: GUAIFENESIN LA 600 MG TABLET.SA PO SCH ×2 (08:26→21:07)
[2022-12-02] MEDS: ASPIRIN EC 81 MG TABLET.DR PO SCH (08:26)
[2022-12-02] MEDS: predniSONE 20 MG TABLET PO SCH (08:26)
[2022-12-02] MEDS: LEVOFLOXACIN (250MG) 250 MG TABLET PO SCH (08:26)
[2022-12-02] MEDS: ATORVASTATIN 40 MG TABLET PO SCH (08:26)
[2022-12-02] MEDS: NIFEdipine XL (30MG) 30 MG TAB PO SCH (08:27)
[2022-12-02 08:34] VITALS: BP 127/71
[2022-12-02] MEDS: APIXABAN 5 MG TABLET PO SCH ×2 (08:42→21:08)
[2022-12-02 12:00] VITALS: BP 121/65
[2022-12-02] MEDS: HYDROCODONE/APAP 10/325MG TABLET PO PRN ×2 (13:35→21:14)
[2022-12-02 16:00] VITALS: BP 100/72
[2022-12-02] MEDS: NITROGLYCERIN 0.4 MG/TAB BOTTLE SL PRN (16:39)
[2022-12-02 20:57] VITALS: BP 110/69
[2022-12-02] MEDS: ZOLPIDEM TARTRATE 5 MG TABLET PO PRN (22:09)
[2022-12-03] MEDS: ALPRAZOLAM 1 MG TABLET PO PRN (04:17)
[2022-12-03 04:55] VITALS: BP 110/58
[2022-12-03] MEDS: ENSURE ENLIVE CHOC 237 ML CAN PO SCH ×3 (07:47→17:17)
[2022-12-03] MEDS: IPRATROPIUM NEB FS 0.5 MG/2.5 ML AMPUL.NEB NEB SCH ×3 (07:58→20:33)
[2022-12-03] MEDS: ALBUTEROL HALF STRENGTH 1.25 MG/3 ML VIAL.NEB NEB SCH ×3 (07:58→20:33)
[2022-12-03 08:00] VITALS: BP 114/74
[2022-12-03] MEDS: predniSONE 20 MG TABLET PO SCH (09:05)
[2022-12-03] MEDS: ASPIRIN EC 81 MG TABLET.DR PO SCH (09:05)
[2022-12-03] MEDS: GABAPENTIN 300 MG CAPSULE PO SCH ×4 (09:05→21:46)
[2022-12-03] MEDS: MULTIVIT W/MINERALS 1 TAB TABLET PO SCH (09:05)
[2022-12-03] MEDS: LEVOFLOXACIN (250MG) 250 MG TABLET PO SCH (09:05)
[2022-12-03] MEDS: GUAIFENESIN LA 600 MG TABLET.SA PO SCH ×2 (09:05→21:46)
[2022-12-03] MEDS: ATORVASTATIN 40 MG TABLET PO SCH (09:06)
[2022-12-03] MEDS: APIXABAN 5 MG TABLET PO SCH ×2 (09:07→21:00)
[2022-12-03] MEDS: NIFEdipine XL (30MG) 30 MG TAB PO SCH (09:19)
[2022-12-03 12:00] VITALS: BP 106/63
[2022-12-03] MEDS: HYDROCODONE/APAP 10/325MG TABLET PO PRN ×2 (14:58→22:37)
[2022-12-03 16:00] VITALS: BP 103/66
[2022-12-03 20:00] VITALS: BP 109/61
[2022-12-03] MEDS: ZOLPIDEM TARTRATE 5 MG TABLET PO PRN (21:46)
[2022-12-04] VITALS: BP 112/61
[2022-12-04] MEDS: ALPRAZOLAM 1 MG TABLET PO PRN ×2 (02:21→21:24)
[2022-12-04 04:00] VITALS: BP 120/62
[2022-12-04] MEDS: IPRATROPIUM NEB FS 0.5 MG/2.5 ML AMPUL.NEB NEB SCH ×3 (07:35→20:17)
[2022-12-04] MEDS: ALBUTEROL HALF STRENGTH 1.25 MG/3 ML VIAL.NEB NEB SCH ×3 (07:35→20:17)
[2022-12-04 08:00] VITALS: BP 105/62
[2022-12-04 08:46] LABS: BASOPHILS # (AUTO) 0.1 K/uL (0.0-0.2); BASOPHILS % (AUTO) 0.5 % (0.0-2.0); EOSINOPHILS % (AUTO) 0.3 % (0.0-6.0); HEMATOCRIT 37 % (39-51); HEMOGLOBIN 11.8 g/dL (13.5-17.5); LYMPHOCYTES # (AUTO) 1.1 K/uL (0.8-4.8); LYMPHOCYTES % (AUTO) 10.3 % (20.0-44.0); MEAN CORPUSCULAR HGB CONC 32 g/dl (31.0-36.0); MEAN CORPUSCULAR VOLUME 82 fL (80-96); MONOCYTES # (AUTO) 1.1 K/uL (0.1-1.30); MONOCYTES % (AUTO) 9.7 % (2.0-12.0); NEUTROPHILS # (AUTO) 8.7 K/uL (1.8-8.9); NEUTROPHILS % (AUTO) 79.2 % (43.0-81.0); PLATELET COUNT (AUTO) 111 K/uL (150-450); RED BLOOD CELL COUNT(AUTO) 4.45 MIL/uL (4.5-6.0)
[2022-12-04] MEDS: NIFEdipine XL (30MG) 30 MG TAB PO SCH (09:00)
[2022-12-04] MEDS: APIXABAN 5 MG TABLET PO SCH ×2 (09:00→21:00)
[2022-12-04 09:05] LABS: BILIRUBIN,TOTAL 0.8 mg/dL (0.2-1.0); CREATININE 0.8 mg/dL (0.6-1.3); MAGNESIUM 2.2 mg/dL (1.8-2.4); PHOSPHORUS 4.2 mg/dL (2.5-4.9); POTASSIUM 4.4 mmol/L (3.5-5.1)
[2022-12-04] MEDS: GUAIFENESIN LA 600 MG TABLET.SA PO SCH ×2 (09:07→21:24)
[2022-12-04] MEDS: MULTIVIT W/MINERALS 1 TAB TABLET PO SCH (09:07)
[2022-12-04] MEDS: LEVOFLOXACIN (250MG) 250 MG TABLET PO SCH (09:08)
[2022-12-04] MEDS: predniSONE 20 MG TABLET PO SCH (09:08)
[2022-12-04] MEDS: ASPIRIN EC 81 MG TABLET.DR PO SCH (09:08)
[2022-12-04] MEDS: ATORVASTATIN 40 MG TABLET PO SCH (09:08)
[2022-12-04] MEDS: GABAPENTIN 300 MG CAPSULE PO SCH ×4 (09:08→21:24)
[2022-12-04] MEDS: HYDROCODONE/APAP 10/325MG TABLET PO PRN ×3 (09:19→23:19)
[2022-12-04] MEDS: ENSURE ENLIVE CHOC 237 ML CAN PO SCH ×3 (09:22→17:49)
[2022-12-04 10:43] LABS: BAND % (MANUAL) 3 % (0.0-5.0); LYMPHOCYTES % (MANUAL) 12 % (16-48); MONOCYTES % (MANUAL) 8 % (0-11.0); NEUTROPHILS % (MANUAL) 77 (42-76)
[2022-12-04 12:00] VITALS: BP 93/56
[2022-12-04 16:00] VITALS: BP 135/74
[2022-12-04 21:32] VITALS: BP 107/67
[2022-12-04] MEDS: ZOLPIDEM TARTRATE 5 MG TABLET PO PRN (23:20)
[2022-12-05] VITALS (9 sets, daily range): BP systolic 98–122; BP diastolic 44–74
[2022-12-05] MEDS: ENSURE ENLIVE CHOC 237 ML CAN PO SCH ×3 (08:00→16:50)
[2022-12-05 08:02] LABS: BASOPHILS % (AUTO) 0.3 % (0.0-2.0); EOSINOPHILS % (AUTO) 0.2 % (0.0-6.0); HEMATOCRIT 36 % (39-51); HEMOGLOBIN 11.5 g/dL (13.5-17.5); LYMPHOCYTES # (AUTO) 1.1 K/uL (0.8-4.8); LYMPHOCYTES % (AUTO) 10.3 % (20.0-44.0); MEAN CORPUSCULAR HGB CONC 32 g/dl (31.0-36.0); MEAN CORPUSCULAR VOLUME 83 fL (80-96); MONOCYTES # (AUTO) 1.1 K/uL (0.1-1.30); MONOCYTES % (AUTO) 10.3 % (2.0-12.0); NEUTROPHILS # (AUTO) 8.5 K/uL (1.8-8.9); NEUTROPHILS % (AUTO) 78.9 % (43.0-81.0); PLATELET COUNT (AUTO) 105 K/uL (150-450); RED BLOOD CELL COUNT(AUTO) 4.34 MIL/uL (4.5-6.0); WHITE BLOOD COUNT (AUTO) 10.8 K/uL (4.3-11.0)
[2022-12-05] MEDS: GABAPENTIN 300 MG CAPSULE PO SCH ×4 (08:07→20:39)
[2022-12-05] MEDS: ATORVASTATIN 40 MG TABLET PO SCH ×2 (08:07→13:12)
[2022-12-05] MEDS: APIXABAN 5 MG TABLET PO SCH ×2 (08:07→20:40)
[2022-12-05] MEDS: ASPIRIN EC 81 MG TABLET.DR PO SCH (08:07)
[2022-12-05] MEDS: LEVOFLOXACIN (250MG) 250 MG TABLET PO SCH ×2 (08:07→13:07)
[2022-12-05] MEDS: GUAIFENESIN LA 600 MG TABLET.SA PO SCH ×3 (08:07→20:39)
[2022-12-05] MEDS: predniSONE 20 MG TABLET PO SCH ×2 (08:08→13:06)
[2022-12-05] MEDS: MULTIVIT W/MINERALS 1 TAB TABLET PO SCH ×2 (08:08→13:08)
[2022-12-05] MEDS: NIFEdipine XL (30MG) 30 MG TAB PO SCH (08:08)
[2022-12-05 08:10] LABS: CALCIUM, SERUM 8.7 mg/dL (8.5-10.1); CREATININE 0.9 mg/dL (0.6-1.3); POTASSIUM 4.1 mmol/L (3.5-5.1)
[2022-12-05] MEDS: IPRATROPIUM NEB FS 0.5 MG/2.5 ML AMPUL.NEB NEB SCH ×3 (08:12→20:03)
[2022-12-05] MEDS: ALBUTEROL HALF STRENGTH 1.25 MG/3 ML VIAL.NEB NEB SCH ×3 (08:12→20:03)
[2022-12-05] MEDS ORDERED: IV SET PRIMARY PUMP SET 1 EA INFUS.SET MC ONE (11:01)
[2022-12-05] MEDS ORDERED: NITROGLYCERIN IN 5 % DEXTROSE 250 ML IV ONE (11:01)
[2022-12-05] MEDS ORDERED: IODIXANOL 150 ML IV ONE (11:01)
[2022-12-05] MEDS ORDERED: IV NS 0.9% 500 ML IV ONE (11:01)
[2022-12-05] MEDS ORDERED: LIDOCAINE HCL/MPF 1% 30 ML VIAL IJ ONE (11:01)
[2022-12-05] MEDS ORDERED: MIDAZOLAM HCL 2 MG/2ML VIAL ONE (12:09)
[2022-12-05] MEDS ORDERED: FENTANYL PF 100MCG/2ML AMPUL ONE (12:09)
[2022-12-05] MEDS: ACETAMINOPHEN 325 MG TABLET PO PRN (13:13)
[2022-12-05] MEDS: HYDROCODONE/APAP 10/325MG TABLET PO PRN ×2 (14:54→20:08)
[2022-12-05] MEDS ORDERED: LIDOCAINE 5% (PATCH) 1 EA PATCH TP SCH (19:30)
[2022-12-05] MEDS: ZOLPIDEM TARTRATE 5 MG TABLET PO PRN (22:27)
[2022-12-05] MEDS: ALPRAZOLAM 1 MG TABLET PO PRN (22:27)
[2022-12-06] VITALS: BP 104/72
[2022-12-06 04:00] VITALS: BP 117/68
[2022-12-06 06:10] LABS: BASOPHILS % (AUTO) 0.1 % (0.0-2.0); HEMATOCRIT 34 % (39-51); HEMOGLOBIN 10.9 g/dL (13.5-17.5); LYMPHOCYTES # (AUTO) 0.9 K/uL (0.8-4.8); LYMPHOCYTES % (AUTO) 5.6 % (20.0-44.0); MEAN CORPUSCULAR HGB CONC 32 g/dl (31.0-36.0); MEAN CORPUSCULAR VOLUME 83 fL (80-96); MONOCYTES # (AUTO) 1.2 K/uL (0.1-1.30); MONOCYTES % (AUTO) 7.7 % (2.0-12.0); NEUTROPHILS # (AUTO) 13.2 K/uL (1.8-8.9); NEUTROPHILS % (AUTO) 86.6 % (43.0-81.0); PLATELET COUNT (AUTO) 107 K/uL (150-450); RED BLOOD CELL COUNT(AUTO) 4.12 MIL/uL (4.5-6.0); WHITE BLOOD COUNT (AUTO) 15.3 K/uL (4.3-11.0)
[2022-12-06 06:39] LABS: CALCIUM, SERUM 8.5 mg/dL (8.5-10.1); POTASSIUM 4.7 mmol/L (3.5-5.1)
[2022-12-06] MEDS: ALBUTEROL HALF STRENGTH 1.25 MG/3 ML VIAL.NEB NEB SCH ×2 (07:35→14:10)
[2022-12-06] MEDS: IPRATROPIUM NEB FS 0.5 MG/2.5 ML AMPUL.NEB NEB SCH ×2 (07:35→14:10)
[2022-12-06 08:00] VITALS: BP 115/65
[2022-12-06] MEDS: ENSURE ENLIVE CHOC 237 ML CAN PO SCH ×2 (08:24→12:03)
[2022-12-06] MEDS: APIXABAN 5 MG TABLET PO SCH (09:10)
[2022-12-06] MEDS: HYDROCODONE/APAP 10/325MG TABLET PO PRN ×2 (09:14→15:43)
[2022-12-06] MEDS: GABAPENTIN 300 MG CAPSULE PO SCH ×2 (09:14→13:03)
[2022-12-06] MEDS: ATORVASTATIN 40 MG TABLET PO SCH (09:14)
[2022-12-06] MEDS: GUAIFENESIN LA 600 MG TABLET.SA PO SCH (09:14)
[2022-12-06] MEDS: LEVOFLOXACIN (250MG) 250 MG TABLET PO SCH (09:14)
[2022-12-06] MEDS: NIFEdipine XL (30MG) 30 MG TAB PO SCH (09:14)
[2022-12-06] MEDS: ASPIRIN EC 81 MG TABLET.DR PO SCH (09:14)
[2022-12-06 12:00] VITALS: BP 110/60
[2022-12-06] MEDS ORDERED: LIDO30AD10 TP (13:01)
[2022-12-06] MEDS ORDERED: ALBU1.25 NEB (13:01)
[2022-12-06] MEDS ORDERED: ALBU2.5V13 NEB (13:01)
[2022-12-06] MEDS ORDERED: ZOLP5TAB8 PO (13:01)
[2022-12-06] MEDS ORDERED: PRED20TA PO ×2 (13:01)
[2022-12-06] MEDS ORDERED: LEVO250T59 PO (13:01)
[2022-12-06] MEDS ORDERED: IPRA0.2S9 NEB (13:01)
[2022-12-06] MEDS: NITROGLYCERIN 0.4 MG/TAB BOTTLE SL PRN (13:02)
[2022-12-06 16:00] VITALS: BP 103/58
== END 2022-12-06 18:37 | disposition home health service (06) | DRG 286 ==
LOC: ER 16:34 → TELE1 11-25 00:01
PROVIDERS: ADMIT Nurse Practitioner Acute Care; ATTEND Nurse Practitioner Acute Care
PROC: 05HA33Z Insertion of Infusion Device into Left Brachial Vein, Percutaneous Approach (ICD-10-PCS; 2022-11-27)
PROC: 4A023N7 Measurement of Cardiac Sampling and Pressure, Left Heart, Percutaneous Approach (ICD-10-PCS; principal; 2022-12-05)
PROC: B211YZZ Fluoroscopy of Multiple Coronary Arteries using Other Contrast (ICD-10-PCS; 2022-12-05)
PROC: 3E0 Administration, Physiological Systems and Anatomical Regions, Introduction (ICD-10-PCS; 2022-12-05)
DX: I25.111 Atherosclerotic heart disease of native coronary artery with angina pectoris with documented spasm (principal); J15.9 Unspecified bacterial pneumonia; J96.22 Acute and chronic respiratory failure with hypercapnia; J96.21 Acute and chronic respiratory failure with hypoxia; J44.1 Chronic obstructive pulmonary disease with (acute) exacerbation; E44.0 Moderate protein-calorie malnutrition; Z68.1 Body mass index [BMI] 19.9 or less, adult; J44.0 Chronic obstructive pulmonary disease with (acute) lower respiratory infection; M06.9 Rheumatoid arthritis, unspecified; G54.6 Phantom limb syndrome with pain; Z89.612 Acquired absence of left leg above knee; Z86.711 Personal history of pulmonary embolism; Z79.01 Long term (current) use of anticoagulants; J40 Bronchitis, not specified as acute or chronic; K21.9 Gastro-esophageal reflux disease without esophagitis; B19.20 Unspecified viral hepatitis C without hepatic coma; I10 Essential (primary) hypertension; Z95.5 Presence of coronary angioplasty implant and graft; Z87.891 Personal history of nicotine dependence; Z99.81 Dependence on supplemental oxygen; Z85.46 Personal history of malignant neoplasm of prostate; Z20.822 Contact with and (suspected) exposure to COVID-19; Z79.82 Long term (current) use of aspirin; Z79.899 Other long term (current) drug therapy; I25.2 Old myocardial infarction; G62.9 Polyneuropathy, unspecified; F19.11 Other psychoactive substance abuse, in remission; Z80.9 Family history of malignant neoplasm, unspecified; R91.8 Other nonspecific abnormal finding of lung field
CPT/HCPCS: 36415; 71045-TC; 76856-TC; 80048-TC; 80053-TC; 80076-TC; 83735-TC; 84100-TC; 84484-TC; 85025-TC; 85610-TC; 87081-TC; 94799-TC; 97116-TC; 97530-TC; A4216; A4223; C9803; G0378; G0500; J0456; J0696; J1644; J1956; J2250; J2270; J2920; J3010; J3490; J7030; J7040; J7060; Q9967

== ENCOUNTER 2022-12-12 10:14 | Outpatient (CLI) | payer MEDICARE, OTHER ==
[~2022-12-12 10:14] MED LIST changes: +ALBU1.25 NEB; +ALBU2.5V13 NEB; +IPRA0.2S9 NEB; +LEVO250T59 PO; +LIDO30AD10 TP; +PRED20TA PO; +ZOLP5TAB8 PO
[2022-12-14] MEDS ORDERED: GABAPENTIN 300 MG CAPSULE PO SCH (13:30)
[2022-12-14] MEDS ORDERED: TRAMADOL HCL 50 MG TABLET PO PRN (14:00)
== END 2022-12-12 23:59 | disposition home or self-care (01) ==
LOC: MSC 10:14
PROVIDERS: ATTEND Internal Medicine
DX: R04.2 Hemoptysis (principal); R53.1 Weakness; J44.1 Chronic obstructive pulmonary disease with (acute) exacerbation; J96.12 Chronic respiratory failure with hypercapnia; I27.20 Pulmonary hypertension, unspecified; I25.810 Atherosclerosis of coronary artery bypass graft(s) without angina pectoris; I10 Essential (primary) hypertension; E78.5 Hyperlipidemia, unspecified; Z85.46 Personal history of malignant neoplasm of prostate; B19.20 Unspecified viral hepatitis C without hepatic coma; K21.9 Gastro-esophageal reflux disease without esophagitis; E44.0 Moderate protein-calorie malnutrition; F19.11 Other psychoactive substance abuse, in remission; Z89.612 Acquired absence of left leg above knee

== ENCOUNTER 2023-02-28 13:38 | Emergency (ER) | payer BC, OTHER ==
[~2023-02-28] VITALS: Ht 180.3 cm; Wt 68.0 kg
[~2023-02-28 13:38] MED LIST changes: +AMOX-430 PO; -LEVO250T59 PO; +TAMS-12 PO
[2023-02-28 14:16] LABS: BASOPHILS % (AUTO) 0.7 % (0.0-2.0); EOSINOPHILS # (AUTO) 0.1 K/uL (0.0-0.7); EOSINOPHILS % (AUTO) 1.7 % (0.0-6.0); HEMATOCRIT 37 % (39-51); HEMOGLOBIN 12.1 g/dL (13.5-17.5); LYMPHOCYTES # (AUTO) 1.1 K/uL (0.8-4.8); LYMPHOCYTES % (AUTO) 18.8 % (20.0-44.0); MEAN CORPUSCULAR HEMOGLOBIN 28 PG (26.0-33.0); MEAN CORPUSCULAR HGB CONC 32 g/dl (31.0-36.0); MEAN CORPUSCULAR VOLUME 85 fL (80-96); MONOCYTES # (AUTO) 0.8 K/uL (0.1-1.30); NEUTROPHILS # (AUTO) 3.8 K/uL (1.8-8.9); NEUTROPHILS % (AUTO) 65.8 % (43.0-81.0); PLATELET COUNT (AUTO) 106 K/uL (150-450); RED BLOOD CELL COUNT(AUTO) 4.38 MIL/uL (4.5-6.0); RED CELL DISTRIBUTION WIDTH 20.5 % (11.5-15.0); WHITE BLOOD COUNT (AUTO) 5.8 K/uL (4.3-11.0)
[2023-02-28 14:33] LABS: CALCIUM, SERUM 8.8 mg/dL (8.5-10.1); CARBON DIOXIDE 24 mmol/L (21-32); CHLORIDE 110 mmol/L (98-107); CREATININE 0.8 mg/dL (0.6-1.3); GLUCOSE 95 mg/dL (74-106); POTASSIUM 4.1 mmol/L (3.5-5.1); SODIUM SERUM 144 mmol/L (136-145); UREA NITROGEN, BLOOD 18 mg/dL (7-18)
[2023-02-28] MEDS ORDERED: TAMS-12 PO (14:34)
[2023-02-28] MEDS ORDERED: ZOLP5TAB2 PO (14:34)
[2023-02-28] MEDS ORDERED: LIDO30AD10 TP (14:34)
[2023-02-28] MEDS ORDERED: ALBU2.5V38 IH (14:34)
[2023-02-28] MEDS ORDERED: IPRA0.2S9 IH (14:34)
[2023-02-28 15:16] LABS: OVALOCYTES 1+
[2023-02-28] MEDS ORDERED: ALBUTEROL FS 2.5 MG/3 ML VIAL.NEB ONE (15:18)
[2023-02-28] MEDS ORDERED: IPRATROPIUM NEB FS 0.5 MG/2.5 ML AMPUL.NEB ONE (15:18)
[2023-02-28 15:20] VITALS: O2SAT 98
[2023-02-28] MEDS ORDERED: ALBUTEROL FS 2.5 MG/3 ML VIAL.NEB NEB ONE (15:30)
[2023-02-28] MEDS ORDERED: IPRATROPIUM NEB FS 0.5 MG/2.5 ML AMPUL.NEB NEB ONE (15:30)
[2023-02-28] MEDS ORDERED: KETOROLAC TROMETHAMINE INJ 30 MG/ML VIAL IV ONE (15:30)
[2023-02-28] MEDS ORDERED: KETOROLAC TROMETHAMINE 15 MG/ML VIAL ONE (15:41)
[2023-02-28 15:45] VITALS: O2SAT 100
[2023-02-28 16:08] VITALS: O2SAT 100
[2023-02-28 16:24] VITALS: O2SAT 100
[2023-02-28] MEDS ORDERED: IBUP-1955 PO (16:45)
[2023-02-28] MEDS ORDERED: HYDR-4303 PO (16:45)
[2023-02-28] MEDS ORDERED: ALBU18HF2 INH (16:47)
[2023-02-28] MEDS ORDERED: PRED20TA PO (16:47)
[2023-02-28 18:21] VITALS: BP 124/87; TEMP 98.2; O2SAT 100
== END 2023-02-28 18:22 | disposition home or self-care (01) ==
LOC: ER 13:41
DX: R07.89 Other chest pain (principal); I10 Essential (primary) hypertension; E78.5 Hyperlipidemia, unspecified; I25.2 Old myocardial infarction; J44.9 Chronic obstructive pulmonary disease, unspecified; Z79.51 Long term (current) use of inhaled steroids; Z79.899 Other long term (current) drug therapy; W18.30XA Fall on same level, unspecified, initial encounter; Y93.89 Activity, other specified; Y92.89 Other specified places as the place of occurrence of the external cause; Y99.8 Other external cause status
CPT/HCPCS: 99285; 96374; 71045; 93005 ×3; 85025; 80048; 36415; 84484 ×2; 94799; 94644; J1885

== ENCOUNTER 2023-05-04 18:32 | Inpatient (IN) | payer MEDICARE, OTHER ==
[~2023-05-04] VITALS: Ht 180.3 cm; Wt 66.2 kg
[~2023-05-04 18:32] MED LIST changes: -ALBU1.25 NEB; +ALBU18HF2 INH; -ALBU2.5V13 NEB; +ALBU2.5V38 IH; -ALPR1TAB7 PO; -AMOX-430 PO; +HYDR-4303 PO; +IBUP-1955 PO; +IPRA0.2S9 IH; -IPRA0.2S9 NEB; -NIFE-35 PO; +ZOLP5TAB2 PO; -ZOLP5TAB8 PO
[2023-05-04] MEDS ORDERED: methylPREDNISolone SOD SUCC 125 MG/2ML VIAL ONE (19:06)
[2023-05-04 19:07] LABS: BASOPHILS # (AUTO) 0.1 K/uL (0.0-0.2); EOSINOPHILS # (AUTO) 0.1 K/uL (0.0-0.7); EOSINOPHILS % (AUTO) 1.6 % (0.0-6.0); HEMATOCRIT 41 % (39-51); HEMOGLOBIN 13.2 g/dL (13.5-17.5); LYMPHOCYTES % (AUTO) 17.4 % (20.0-44.0); MEAN CORPUSCULAR HEMOGLOBIN 28 PG (26.0-33.0); MEAN CORPUSCULAR HGB CONC 32 g/dl (31.0-36.0); MEAN CORPUSCULAR VOLUME 86 fL (80-96); MONOCYTES # (AUTO) 0.7 K/uL (0.1-1.30); MONOCYTES % (AUTO) 12.3 % (2.0-12.0); NEUTROPHILS # (AUTO) 4.1 K/uL (1.8-8.9); NEUTROPHILS % (AUTO) 67.7 % (43.0-81.0); PLATELET COUNT (AUTO) 97 K/uL (150-450); RED BLOOD CELL COUNT(AUTO) 4.76 MIL/uL (4.5-6.0); RED CELL DISTRIBUTION WIDTH 16.2 % (11.5-15.0)
[2023-05-04] MEDS ORDERED: IPRATROPIUM NEB FS 0.5 MG/2.5 ML AMPUL.NEB ONE (19:10)
[2023-05-04] MEDS ORDERED: ALBUTEROL FS 2.5 MG/3 ML VIAL.NEB ONE (19:10)
[2023-05-04 19:17] VITALS: O2SAT 100
[2023-05-04 19:19] LABS: CALCIUM, SERUM 9.3 mg/dL (8.5-10.1); CARBON DIOXIDE 33 mmol/L (21-32); CHLORIDE 106 mmol/L (98-107); CREATININE 0.9 mg/dL (0.6-1.3); GLUCOSE 99 mg/dL (74-106); POTASSIUM 4.2 mmol/L (3.5-5.1); SODIUM SERUM 145 mmol/L (136-145); UREA NITROGEN, BLOOD 24 mg/dL (7-18)
[2023-05-04] MEDS ORDERED: IPRATROPIUM NEB FS 0.5 MG/2.5 ML AMPUL.NEB NEB ONE (19:30)
[2023-05-04] MEDS ORDERED: ALBUTEROL FS 2.5 MG/3 ML VIAL.NEB CONTNEB ONE (19:30)
[2023-05-04] MEDS ORDERED: methylPREDNISolone SOD SUCC 125 MG/2ML VIAL IV ONE (19:30)
[2023-05-04 19:32] VITALS: O2SAT 100
[2023-05-04 19:32] LABS: ALANINE AMINOTRANSFERASE 26 U/L (12-78); ALBUMIN 4.4 g/dL (3.4-5.0); ALKALINE PHOSPHATASE 118 U/L (46-116); ASPARTATE AMINOTRANSFERASE 24 U/L (15-37); BILIRUBIN,DIRECT 0.2 mg/dL (0.0-0.2); BILIRUBIN,TOTAL 0.7 mg/dL (0.2-1.0); NT-PRO BNP 179 pg/mL (0-125); TOTAL PROTEIN, SERUM 7.8 g/dL (6.4-8.2)
[2023-05-04 19:33] VITALS: O2SAT 100
[2023-05-04 19:35] LABS: INR 1.06 (0.91-1.10); PARTIAL THROMBOPLASTIN TIME 28.4 SEC (24.3-34.3); PROTHROMBIN TIME 11.2 SECS (9.2-11.1)
[2023-05-04 19:43] VITALS: O2SAT 100
[2023-05-04 19:57] LABS: ANISOCYTOSIS 1+; BAND % (MANUAL) 1 % (0.0-5.0); EOSINOPHILS % (MANUAL) 4 % (0-4); LYMPHOCYTES % (MANUAL) 21 % (16-48); MONOCYTES % (MANUAL) 9 % (0-11.0); NEUTROPHILS % (MANUAL) 65 (42-76); OVALOCYTES 1+; PLATELET ESTIMATE DECREASED
[2023-05-04] MEDS ORDERED: HYDROCODONE/APAP 5/325MG TABLET ONE (22:00)
[2023-05-04] MEDS ORDERED: HYDROCODONE/APAP 5/325MG TABLET PO ONE (22:00)
[2023-05-04 23:00] VITALS: BP 141/82; TEMP 98; O2SAT 94
[2023-05-04 23:30] VITALS: BP 141/82; TEMP 98; O2SAT 97
[2023-05-04] MEDS ORDERED: ALBUTEROL FS 2.5 MG/3 ML VIAL.NEB NEB PRN (23:30)
[2023-05-04] MEDS ORDERED: Z GUARD REMEDY 4 OZ OINT TP PRN (23:30)
[2023-05-04] MEDS ORDERED: MAG HYDROX/AL HYDROX/SIMETH 30 ML UDC PO PRN (23:30)
[2023-05-04] MEDS ORDERED: ACETAMINOPHEN 325 MG TABLET PO PRN (23:30)
[2023-05-04] MEDS ORDERED: ONDANSETRON HCL/PF 4 MG/2 ML VIAL IVP PRN (23:30)
[2023-05-04] MEDS ORDERED: MAGNESIUM HYDROXIDE 30 ML UDC PO PRN (23:30)
[2023-05-04] MEDS: FUROSEMIDE 20 MG/2 ML VIAL IV SCH (23:41)
[2023-05-05] VITALS (7 sets, daily range): BP systolic 130–156; BP diastolic 78–82; TEMP 98.1–98.2; O2SAT 92–99
[2023-05-05] MEDS: MORPHINE SULFATE INJ 2 MG/ML DISP.SYRIN IV PRN ×4 (02:56→21:36)
[2023-05-05] MEDS: methylPREDNISolone SOD SUCC 125 MG/2ML VIAL IV SCH ×3 (05:05→21:16)
[2023-05-05] MEDS: HYDROCODONE/APAP 5/325MG TABLET PO PRN (05:19)
[2023-05-05 05:51] LABS: BASOPHILS % (AUTO) 0.7 % (0.0-2.0); HEMATOCRIT 37 % (39-51); HEMOGLOBIN 12.4 g/dL (13.5-17.5); LYMPHOCYTES # (AUTO) 0.5 K/uL (0.8-4.8); LYMPHOCYTES % (AUTO) 15.7 % (20.0-44.0); MEAN CORPUSCULAR HEMOGLOBIN 28 PG (26.0-33.0); MEAN CORPUSCULAR HGB CONC 33 g/dl (31.0-36.0); MEAN CORPUSCULAR VOLUME 84 fL (80-96); MONOCYTES # (AUTO) 0.2 K/uL (0.1-1.30); MONOCYTES % (AUTO) 5.4 % (2.0-12.0); NEUTROPHILS # (AUTO) 2.2 K/uL (1.8-8.9); NEUTROPHILS % (AUTO) 78.2 % (43.0-81.0); PLATELET COUNT (AUTO) 106 K/uL (150-450); RED BLOOD CELL COUNT(AUTO) 4.46 MIL/uL (4.5-6.0); RED CELL DISTRIBUTION WIDTH 15.7 % (11.5-15.0); WHITE BLOOD COUNT (AUTO) 2.9 K/uL (4.3-11.0)
[2023-05-05 06:44] LABS: CARBON DIOXIDE 28 mmol/L (21-32); CHLORIDE 101 mmol/L (98-107); CREATININE 0.9 mg/dL (0.6-1.3); GLUCOSE 142 mg/dL (74-106); MAGNESIUM 1.7 mg/dL (1.8-2.4); PHOSPHORUS 2.9 mg/dL (2.5-4.9); POTASSIUM 3.7 mmol/L (3.5-5.1); SODIUM SERUM 140 mmol/L (136-145); UREA NITROGEN, BLOOD 23 mg/dL (7-18)
[2023-05-05 07:59] LABS: LYMPHOCYTES % (MANUAL) 14 % (16-48); MONOCYTES % (MANUAL) 5 % (0-11.0); NEUTROPHILS % (MANUAL) 81 (42-76)
[2023-05-05 08:00] LABS: ANISOCYTOSIS 1+; OVALOCYTES 1+; PLATELET ESTIMATE DECREASED
[2023-05-05] MEDS: FUROSEMIDE 20 MG/2 ML VIAL IV SCH (08:25)
[2023-05-05] MEDS ORDERED: MAGNESIUM OXIDE 400 MG TABLET PO ONE (10:00)
[2023-05-05] MEDS ORDERED: ALBUTEROL FS 2.5 MG/3 ML VIAL.NEB NEB PRN ×2 (12:00→13:09)
[2023-05-05] MEDS ORDERED: IPRATROPIUM NEB FS 0.5 MG/2.5 ML AMPUL.NEB NEB PRN (12:00)
[2023-05-05] MEDS: ALBUTEROL FS 2.5 MG/3 ML VIAL.NEB NEB SCH ×2 (13:23→20:39)
[2023-05-05] MEDS: PREGABALIN 25 MG CAPSULE PO SCH (17:53)
[2023-05-05] MEDS: TEMAZEPAM 15 MG CAPSULE PO PRN (23:49)
[2023-05-06] VITALS (10 sets, daily range): BP systolic 103–129; BP diastolic 62–76; TEMP 97.7–98.2; O2SAT 92–100
[2023-05-06] MEDS: ALBUTEROL FS 2.5 MG/3 ML VIAL.NEB NEB SCH ×4 (01:30→20:06)
[2023-05-06] MEDS: methylPREDNISolone SOD SUCC 125 MG/2ML VIAL IV SCH ×3 (05:52→20:41)
[2023-05-06 07:48] LABS: BASOPHILS % (AUTO) 0.1 % (0.0-2.0); HEMATOCRIT 37 % (39-51); LYMPHOCYTES # (AUTO) 0.7 K/uL (0.8-4.8); LYMPHOCYTES % (AUTO) 5.3 % (20.0-44.0); MEAN CORPUSCULAR HEMOGLOBIN 28 PG (26.0-33.0); MEAN CORPUSCULAR HGB CONC 33 g/dl (31.0-36.0); MEAN CORPUSCULAR VOLUME 85 fL (80-96); MONOCYTES # (AUTO) 0.7 K/uL (0.1-1.30); MONOCYTES % (AUTO) 5.8 % (2.0-12.0); NEUTROPHILS # (AUTO) 11.3 K/uL (1.8-8.9); NEUTROPHILS % (AUTO) 88.8 % (43.0-81.0); PLATELET COUNT (AUTO) 104 K/uL (150-450); RED BLOOD CELL COUNT(AUTO) 4.36 MIL/uL (4.5-6.0); RED CELL DISTRIBUTION WIDTH 15.8 % (11.5-15.0); WHITE BLOOD COUNT (AUTO) 12.7 K/uL (4.3-11.0)
[2023-05-06 07:54] LABS: CALCIUM, SERUM 8.7 mg/dL (8.5-10.1); MAGNESIUM 2.2 mg/dL (1.8-2.4); PHOSPHORUS 4.6 mg/dL (2.5-4.9); POTASSIUM 4.2 mmol/L (3.5-5.1)
[2023-05-06] MEDS: FUROSEMIDE 20 MG/2 ML VIAL IV SCH (08:35)
[2023-05-06] MEDS: PREGABALIN 25 MG CAPSULE PO SCH ×2 (08:35→16:22)
[2023-05-06] MEDS ORDERED: GABA-532 PO (09:06)
[2023-05-06] MEDS ORDERED: IBUP-1955 PO (09:06)
[2023-05-06] MEDS: HYDROCODONE/APAP 5/325MG TABLET PO PRN ×3 (10:40→20:41)
[2023-05-06] MEDS: TEMAZEPAM 15 MG CAPSULE PO PRN (23:15)
[2023-05-07] VITALS (14 sets, daily range): BP systolic 111–127; BP diastolic 62–80; TEMP 97.7–98.6; O2SAT 92–100
[2023-05-07] MEDS: ALBUTEROL FS 2.5 MG/3 ML VIAL.NEB NEB SCH ×4 (01:56→19:47)
[2023-05-07] MEDS: HYDROCODONE/APAP 5/325MG TABLET PO PRN ×5 (04:33→22:41)
[2023-05-07] MEDS: methylPREDNISolone SOD SUCC 125 MG/2ML VIAL IV SCH ×3 (05:26→20:17)
[2023-05-07 06:52] LABS: HEMATOCRIT 37 % (39-51); HEMOGLOBIN 11.9 g/dL (13.5-17.5); LYMPHOCYTES # (AUTO) 0.5 K/uL (0.8-4.8); MEAN CORPUSCULAR HEMOGLOBIN 27 PG (26.0-33.0); MEAN CORPUSCULAR HGB CONC 32 g/dl (31.0-36.0); MEAN CORPUSCULAR VOLUME 85 fL (80-96); MONOCYTES # (AUTO) 0.8 K/uL (0.1-1.30); MONOCYTES % (AUTO) 5.5 % (2.0-12.0); NEUTROPHILS # (AUTO) 12.3 K/uL (1.8-8.9); NEUTROPHILS % (AUTO) 90.5 % (43.0-81.0); PLATELET COUNT (AUTO) 88 K/uL (150-450); RED BLOOD CELL COUNT(AUTO) 4.37 MIL/uL (4.5-6.0); WHITE BLOOD COUNT (AUTO) 13.6 K/uL (4.3-11.0)
[2023-05-07 07:30] LABS: CALCIUM, SERUM 8.9 mg/dL (8.5-10.1); CREATININE 1.1 mg/dL (0.6-1.3); MAGNESIUM 2.1 mg/dL (1.8-2.4); PHOSPHORUS 4.2 mg/dL (2.5-4.9); POTASSIUM 4.1 mmol/L (3.5-5.1)
[2023-05-07 07:56] LABS: LYMPHOCYTES % (MANUAL) 4 % (16-48); MONOCYTES % (MANUAL) 3 % (0-11.0); NEUTROPHILS % (MANUAL) 93 (42-76)
[2023-05-07 07:57] LABS: ANISOCYTOSIS 1+; PLATELET ESTIMATE DECREASED
[2023-05-07 07:58] LABS: OVALOCYTES 1+
[2023-05-07] MEDS: FUROSEMIDE 20 MG/2 ML VIAL IV SCH (09:20)
[2023-05-07] MEDS: PREGABALIN 25 MG CAPSULE PO SCH ×2 (09:21→17:52)
[2023-05-07] MEDS: IPRATROPIUM NEB FS 0.5 MG/2.5 ML AMPUL.NEB NEB SCH ×3 (10:30→19:47)
[2023-05-07] MEDS: APIXABAN 5 MG TABLET PO SCH ×2 (11:34→17:52)
[2023-05-08] VITALS (12 sets, daily range): BP systolic 121–139; BP diastolic 67–79; TEMP 97.7–98.5; O2SAT 94–100
[2023-05-08] MEDS: TEMAZEPAM 15 MG CAPSULE PO PRN ×2 (00:28→23:28)
[2023-05-08] MEDS: IPRATROPIUM NEB FS 0.5 MG/2.5 ML AMPUL.NEB NEB SCH ×4 (00:34→20:18)
[2023-05-08] MEDS: ALBUTEROL FS 2.5 MG/3 ML VIAL.NEB NEB SCH ×4 (00:35→20:18)
[2023-05-08] MEDS: methylPREDNISolone SOD SUCC 125 MG/2ML VIAL IV SCH ×3 (05:14→21:09)
[2023-05-08 07:14] LABS: HEMATOCRIT 36 % (39-51); LYMPHOCYTES # (AUTO) 0.4 K/uL (0.8-4.8); LYMPHOCYTES % (AUTO) 4.7 % (20.0-44.0); MEAN CORPUSCULAR HEMOGLOBIN 28 PG (26.0-33.0); MEAN CORPUSCULAR HGB CONC 34 g/dl (31.0-36.0); MEAN CORPUSCULAR VOLUME 84 fL (80-96); MONOCYTES # (AUTO) 0.4 K/uL (0.1-1.30); MONOCYTES % (AUTO) 4.8 % (2.0-12.0); NEUTROPHILS # (AUTO) 7.2 K/uL (1.8-8.9); NEUTROPHILS % (AUTO) 90.5 % (43.0-81.0); PLATELET COUNT (AUTO) 79 K/uL (150-450); RED BLOOD CELL COUNT(AUTO) 4.27 MIL/uL (4.5-6.0); RED CELL DISTRIBUTION WIDTH 15.9 % (11.5-15.0); WHITE BLOOD COUNT (AUTO) 7.9 K/uL (4.3-11.0)
[2023-05-08 07:38] LABS: CALCIUM, SERUM 8.9 mg/dL (8.5-10.1); CARBON DIOXIDE 31 mmol/L (21-32); CHLORIDE 98 mmol/L (98-107); GLUCOSE 127 mg/dL (74-106); MAGNESIUM 2.4 mg/dL (1.8-2.4); PHOSPHORUS 3.9 mg/dL (2.5-4.9); POTASSIUM 4.3 mmol/L (3.5-5.1); SODIUM SERUM 136 mmol/L (136-145); UREA NITROGEN, BLOOD 43 mg/dL (7-18)
[2023-05-08] MEDS: PREGABALIN 25 MG CAPSULE PO SCH ×2 (08:05→16:24)
[2023-05-08] MEDS: APIXABAN 5 MG TABLET PO SCH ×2 (08:06→16:26)
[2023-05-08] MEDS: FUROSEMIDE 20 MG/2 ML VIAL IV SCH (08:06)
[2023-05-08] MEDS: HYDROCODONE/APAP 5/325MG TABLET PO PRN ×3 (08:47→21:12)
[2023-05-08 10:37] LABS: LYMPHOCYTES % (MANUAL) 6 % (16-48); MONOCYTES % (MANUAL) 3 % (0-11.0); NEUTROPHILS % (MANUAL) 91 (42-76); PLATELET ESTIMATE DECREASED
[2023-05-08 10:38] LABS: ANISOCYTOSIS 1+; OVALOCYTES 1+
[2023-05-09] VITALS (15 sets, daily range): BP systolic 118–142; BP diastolic 68–79; TEMP 97–98.6; O2SAT 93–100
[2023-05-09] MEDS: ALBUTEROL FS 2.5 MG/3 ML VIAL.NEB NEB SCH ×4 (03:59→19:46)
[2023-05-09] MEDS: IPRATROPIUM NEB FS 0.5 MG/2.5 ML AMPUL.NEB NEB SCH ×4 (03:59→19:46)
[2023-05-09] MEDS: methylPREDNISolone SOD SUCC 125 MG/2ML VIAL IV SCH ×2 (05:14→09:09)
[2023-05-09] MEDS: FUROSEMIDE 20 MG/2 ML VIAL IV SCH (08:08)
[2023-05-09] MEDS: PREGABALIN 25 MG CAPSULE PO SCH ×2 (08:08→16:03)
[2023-05-09] MEDS: APIXABAN 5 MG TABLET PO SCH ×2 (08:09→16:07)
[2023-05-09] MEDS: HYDROCODONE/APAP 5/325MG TABLET PO PRN ×3 (08:21→19:37)
[2023-05-09] MEDS ORDERED: FLUT1DIS INH (10:37)
[2023-05-09] MEDS ORDERED: PRED50TA PO (10:37)
[2023-05-09] MEDS ORDERED: PRED20TA PO (10:37)
[2023-05-09] MEDS ORDERED: METH4TAB17 PO (10:37)
[2023-05-09] MEDS: TEMAZEPAM 15 MG CAPSULE PO PRN (22:17)
[2023-05-10] VITALS: BP 123/71; TEMP 98.1; O2SAT 91
[2023-05-10] MEDS: MORPHINE SULFATE INJ 2 MG/ML DISP.SYRIN IV PRN (01:44)
[2023-05-10 01:57] VITALS: O2SAT 95
[2023-05-10 01:58] VITALS: O2SAT 95
[2023-05-10] MEDS: IPRATROPIUM NEB FS 0.5 MG/2.5 ML AMPUL.NEB NEB SCH ×2 (01:58→07:42)
[2023-05-10] MEDS: ALBUTEROL FS 2.5 MG/3 ML VIAL.NEB NEB SCH ×2 (01:59→07:42)
[2023-05-10 02:12] VITALS: O2SAT 100
[2023-05-10] MEDS: HYDROCODONE/APAP 5/325MG TABLET PO PRN (04:18)
[2023-05-10 07:43] VITALS: O2SAT 95
[2023-05-10] MEDS: PREGABALIN 25 MG CAPSULE PO SCH (08:13)
[2023-05-10] MEDS: methylPREDNISolone SOD SUCC 125 MG/2ML VIAL IV SCH (08:13)
[2023-05-10] MEDS: FUROSEMIDE 20 MG/2 ML VIAL IV SCH (08:14)
[2023-05-10] MEDS: APIXABAN 5 MG TABLET PO SCH (08:15)
== END 2023-05-10 13:00 | disposition home health service (06) | DRG 190 ==
LOC: ER 18:32 → TELE 22:18
PROVIDERS: ADMIT Internal Medicine; ATTEND Nurse Practitioner Acute Care
DX: J44.1 Chronic obstructive pulmonary disease with (acute) exacerbation (principal); J96.21 Acute and chronic respiratory failure with hypoxia; E44.0 Moderate protein-calorie malnutrition; J81.1 Chronic pulmonary edema; I27.20 Pulmonary hypertension, unspecified; Z20.822 Contact with and (suspected) exposure to COVID-19; I10 Essential (primary) hypertension; K21.9 Gastro-esophageal reflux disease without esophagitis; Z99.81 Dependence on supplemental oxygen; B19.20 Unspecified viral hepatitis C without hepatic coma; I25.2 Old myocardial infarction; I25.10 Atherosclerotic heart disease of native coronary artery without angina pectoris; Z95.5 Presence of coronary angioplasty implant and graft; Z89.612 Acquired absence of left leg above knee; Z87.891 Personal history of nicotine dependence; Z85.46 Personal history of malignant neoplasm of prostate; Z79.899 Other long term (current) drug therapy; M10.9 Gout, unspecified; I73.9 Peripheral vascular disease, unspecified; D69.6 Thrombocytopenia, unspecified; D64.9 Anemia, unspecified; E78.00 Pure hypercholesterolemia, unspecified; Z79.01 Long term (current) use of anticoagulants; M06.9 Rheumatoid arthritis, unspecified; Z86.711 Personal history of pulmonary embolism; Z79.51 Long term (current) use of inhaled steroids; Z79.82 Long term (current) use of aspirin; E78.5 Hyperlipidemia, unspecified; F19.11 Other psychoactive substance abuse, in remission
CPT/HCPCS: 36415; 36600; 71045-TC; 80048-TC; 80076-TC; 82803-TC; 83735-TC; 83880; 84100-TC; 84484-TC; 85025-TC; 85730-TC; 94799-TC; 97116-TC; 97530-TC; C9803; G0378; J1940; J2270; J2930